=== PATIENT | female | born 1950 | race Caucasian/White ===

== ENCOUNTER 2020-04-22 20:18 | Inpatient (IN) ==
--- OUTSIDE RECORDS SUMMARY | 2020-04-22 20:21 | External Medical Summary | Continuity of Care Document ---
:1950 Author Name Guillermo Trujillo, Provider Address Unavailable Unavailable , Care Team Providers Name Role Phone Nate PEACE M.D., E. PMere Unavailable [email or web address] Unavailable Unavailable Assessments Assessed Problems:Ulnar neuropathy Problems Ulnar neuropathy (354.2) (G56.20) Allergies and Adverse Reactions Allergy history not documented Medications Medications not documented Procedures Procedures not documented Immunizations Immunizations not documented Plan of Treatment Planned Observations Planned Goals not documented Results No Known Results Results not documented Encounters Appointment; Raciel Sullivan III, M.D. 03-Feb-2015 15:45 Encounter Diagnosis: Problem not documented
[2020-04-22] MEDS ORDERED: DiphenhydrAMINE HCL 50 MG/ML VIAL IV STA (20:45)
[2020-04-22] MEDS ORDERED: ACETAMINOPHEN 1,000 MG/100 ML VIAL IV STA (20:45)
[2020-04-22] MEDS ORDERED: PIPERACILLIN/TAZOBACTAM 4.5 GM/120 ML BAG IV ONE (20:45)
[2020-04-22] MEDS ORDERED: PROCHLORPERAZINE 2 ML IV ONE (20:45)
[2020-04-22] MEDS ORDERED: SODIUM CHLORIDE 0.9% 1000ML 2,000 ML IV ONE (20:45)
[2020-04-22] MEDS ORDERED: FAMOTIDINE 20MG/5ML IV PUSH IV STA (20:45)
[2020-04-22] MEDS ORDERED: PIPERACILL/TAZOBAC CONSULT ACTIVE PRN (20:45)
[2020-04-22 21:13] LABS: Hematocrit (blood only) 47.5 % (37-47); Hemoglobin 16.9 g/dL (12.0-16.0); Mean Corpuscular Hemoglobin 32.4 pg (25-34); Mean Corpuscular Hgb Conc 35.6 g/dL (32-36); Mean Platelet Volume 11.1 fL (7.4-10.4); Platelet Count 359 K/uL (130-400); RDW Coefficient of Variation 13.3 % (11.5-14.5); RDW Standard Deviation 44.3 fL (36.4-46.3); Red Blood Count 5.22 M/uL (4.2-5.4); White Blood Count 9.73 K/uL (4.8-10.8)
[2020-04-22 21:23] LABS: iSTAT Creatinine 5.2 mg/dl (0.6-1.3); iSTAT Hemoglobin 17.7 g/dl (12.0-16.0); iSTAT Ionized Calcium 0.89 mmol/l (1.12-1.32); iSTAT Potassium 2.9 mmol/L (3.3-5.0)
[2020-04-22 21:25] LABS: Partial Thromboplastin Ratio 0.9; Prothrombin Time 10.5 Seconds (9.0-12.0)
[2020-04-22 21:29] LABS: Base Excess VBG 4.3 mEq/L; HCO3 VBG 31 mmol/L; Oxygen Saturation VBG < 60.0 %; PCO2 VBG 56 mmHg (38-50); PO2 VBG 33 mmHg; pH VBG 7.37 (7.36-7.41)
[2020-04-22 21:42] LABS: Basophils # (auto) 0.01 K/uL (0-0.2); Basophils % (auto) 0.1 %; Eosinophils # (auto) 0.01 K/uL (0-0.5); Eosinophils % (auto) 0.1 %; Immature Granulocytes # (auto) 0.04 K/uL (0.00-0.02); Immature Granulocytes % (auto) 0.4 %; Lymphocytes # (auto) 1.72 K/uL (1.2-3.4); Lymphocytes % (auto) 17.7 %; Monocytes # (auto) 1.35 K/uL (0.11-0.59); Monocytes % (auto) 13.9 %; Neutrophils % (auto) 67.8 %; Toxic Vacuolation 1+
[2020-04-22 21:51] LABS: Alanine Aminotransferase 24 U/L (12-78); Albumin Globulin Ratio 0.8 (0.9-2); Albumin Level 4.2 gm/dl (3.4-5.0); Alkaline Phosphatase 106 U/L (45-117); Aspartate Aminotransferase 33 U/L (15-37); BUN Creatinine Ratio 11.4 (10-20); Bilirubin Direct 0.1 mg/dl (0-0.2); Bilirubin,Total 0.4 mg/dl (0.2-1); Blood Urea Nitrogen 57 mg/dl (7-18); Calcium 9.7 mg/dl (8.5-10.1); Carbon Dioxide 28 mmol/L (21-32); Chloride 79 mmol/L (98-107); Est GFR (African American) 9.6; Est GFR (Non-African American) 8.2; Globulin 5.2 gm/dl (2.5-4.0); Glucose 141 mg/dl (70-99); Lipase 57 U/L (73-393); Magnesium 2.7 mg/dl (1.8-2.4); Potassium 2.9 mmol/L (3.5-5.1); Sodium 131 mmol/L (136-145); Total Protein 9.4 gm/dl (6.4-8.2); Troponin I < 0.015 ng/ml (0-0.045)
[2020-04-22] MEDS ORDERED: VANCOMYCIN HCL 750 MG in SODIUM CHLORIDE 0.9% 500 ML IV ONE (22:07)
[2020-04-22] MEDS ORDERED: VANCOMYCIN CONSULT ACTIVE PRN (22:07)
[2020-04-22] MEDS ORDERED: VANCOMYCIN HCL 750 MG in SODIUM CHLORIDE 0.9% 250 ML IV STA (22:14)
--- NOTE | 2020-04-22 22:26 | Emergency Department Note ---
Impression & Plan Sepsis, Acute renal failure, Elevated lactic acid level, SBO (small bowel obstruction) ED Provider Note NAME: AVE HAYWOOD AGE: 70 SEX: F ARRIVES VIA: Ambulance INFORMANT: Patient, ED PROVIDER(S): Raj Sanchez MD CHIEF COMPLAINT: Sepsis PLAN: Disposition: Admit MEDICAL DECISION MAKING: The patient is a pleasant 70-year-old woman with a past medical history of COPD, fibromyalgia, AAA, migraine headaches, hyperlipidemia, osteoporosis, lumbar disc disease and tobacco use who presents emergency department with fevers, body ache s, shortness of breath, nausea and vomiting that has been evolving since Saturday where they thought it was a "GI bug" but continued to get worse and so presented to the emergency department. The patient denies any known COVID-19 exposures and has been staying at home. She denies any cough, congestion, diarrhea, urinary symptoms. On arrival patient is ill-appearing, afebrile with heart rate in the 110s, O2 saturation upper 80s on room air, blood pressure 80s/50s but mentating normally. He appears clinically dry. Abdomen with generalized abdominal tenderness. Chest x-ray without any overt focal infiltrates per my preliminary review. WBC and platelets within normal limits. H/H 16.9/47.5 likely related to a component of hemoconcentration in the setting of the patient's sepsis and dehydration. Lactate is elevated at 6.5 however, with bicarb of 28 though with anion gap of 24. VBG does not show any acidemia the likely has a mixed acid- base status given her recurrent vomiting and sepsis. Creatinine is elevated at 4.9 with BUN of 57. Potassium is 2.9. Otherwise, magnesium and phosphorus are elevated at 2.7 and 9, respectively. Lipase is not elevated. Troponin negative/undetectable. Procalcitonin is elevated at 5.3 consistent with the patient's presumed sepsis. The patient was treated empirically with Zosyn and vancomycin. On reevaluation the patient was appearing improved and reported resolution of nausea and abdominal pain. Abdominal tenderness had subsequently resolved. HR improved to 90 and BP 110s/50s. I did review the results with the patient and her at the bedside. She was agreeable with plan for NG tube. I did discuss the case with general surgery on-call, Dr. Peralta who reviewed the patient's images. Given the patient is clinically improving with her resuscitation we agree that there is no indication for emergent surgery at this time. However if her repeat lactate is increasing or if the patient clinically declines then this will need to be reassessed. Given the patient is not acidemic and appears to be responding to treatment there is no indication for emergent dialysis at this time. Therefore no indication to transfer the patient for this reason at this time. Case was discussed with Dr. Scott, [facility] hospitalist, who will evaluate the patient for admission. Of note several attempts to place NG tube were unsuccessful by nursing. I then personally attempted myself but we were again unsuccessful with the tube being displaced and exiting through her mouth. Challenge and NG tube placement are related to week patient swallow during NG tube placement. Unfortunately she was refusing to allow additional attempts. I did stress the importance of having the NG tube in place and that we will need to revisit this later. Triage Nursing notes reviewed and agree them. [facility] reviewed Vital Signs: reviewed and remarkable for no significant abnormalities Differential diagnosis: Sepsis, UTI, pneumonia, metabolic, electrolyte abnormalities, cardiac sources, intracerebral event, toxicologic, neurologic, as well as other pathologies. ER treatment provided: See below. Diagnostics interpreted by me: ECG: Sinus tachycardia, 106 bpm, no ectopy, nonspecific ST and T wave abnormalities, no overt ST elevation, QTc 541, QRS 82. Cardiac Monitoring: An order for continuous cardiac monitoring was placed and demonstrated sinus tachycardia, 106 bpm, no ectopy. Laboratory studies: See below Imaging studies: CXR: No overt cardiopulmonary process per my review. [facility] Preliminary Findings Only See Final Report For Complete Findings CT ABDOMEN & PELVIS Without Contrast: Multiple loops of dilated small bowel with a transition point in the left lower abdomen (series 2 image 59) concerning for acute small bowel obstruction, likely from underlying mechanical cause such as adhesion. No free air or free fluid. Emphysema. Cholelithiasis without cholecystitis. No significant biliary dilatation. Bladder is decompressed by indwelling Saldana catheter. Diverticulosis without diverticulitis. Normal appendix. Moderate atherosclerosis of the aorta. Degenerative disc disease at L4-S1. Radiologist: Johnson Devine MD Study ready at 22:14 and initial results transmitted at 22:28 Consultation(s): Dr. Peralta, general surgery on-call. Case was discussed with Dr. Scott, [facility] hospitalist, who will evaluate the patient for admission. HPI: The patient is a pleasant 70-year-old woman with a past medical history of COPD, fibromyalgia, AAA, migraine headaches, hyperlipidemia, osteoporosis, lumbar disc disease and tobacco use who presents emergency department with fevers, body aches, shortness of breath, nausea and vomiting that has been evolving since Saturday where they thought it was a "GI bug" but continued to get worse and so presented to the emergency department. The patient denies any known COVID-19 exposures and has been staying at home. She denies any cough, congestion, diarrhea, urinary symptoms. On arrival patient is ill-appearing, afebrile with heart rate in the 110s, O2 saturation upper 80s on room air, blood pressure 80s/50s but mentating normally. He appears clinically dry. Abdomen with generalized abdominal tenderness. ROS: See above HPI for pertinent positives & negatives. A total of 10 systems reviewed and were otherwise negative. PAST MEDICAL HISTORY:See Below PAST SURGICAL HISTORY:See Below FAMILY HISTORY:See Below SOCIAL HISTORY:See Below HOME MEDICATIONS:See Below ALLERGIES:See Below VITALS:See Below PHYSICAL EXAMINATION: GENERAL: Awake, alert, ill-appearing, in no distress HENT: Normocephalic, atraumatic. Oropharynx with dry mucous membranes and otherwise unremarkable. EYES: Normal conjunctiva. Sclera non-icteric. NECK: Supple. No nuchal rigidity. FROM. No JVD. RESPIRATORY: Clear to auscultation. CARDIAC: Tachycardic rate, normal rhythm. Extremities warm and well perfused. Pulses equal. ABDOMEN: Soft, non-distended. Generalized abdominal tenderness to palpation. No rebound or guarding. No masses. RECTAL: Deferred. MUSCULOSKELETAL: Chest examination reveals no tenderness. The back is symmetrical on inspection without obvious abnormality. There is no CVA tenderness to palpation. No joint edema. LOWER EXTREMITIES: Calves are equal size bilaterally and non-tender. No edema. No discoloration. NEURO: Normal sensorium. No sensory or motor deficits noted. SKIN: No rash or jaundice noted. ED COURSE: Critical Care: I have personally spent greater than 95 minutes of critical care time in the direct management of this patient. This includes bedside care, interpretation of diagnostic studies, and testing, discussion with consultants, patient, and family members, and other required patient management activities. This 95 minutes is in excess of all separately billable procedures. 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 Required: No Beliefs That Will Affect Care: None Current Living Situation: Spouse Other Information That Helps Us Care for You: No Feels Safe at Home: Yes Safety Concerns: Feels Safe At This Time Allergies Allergies Allergy/AdvReac Type Severity Reaction Status Date / Time No Known Allergies Allergy Unverified 04/22/20 23:40 Home Meds Home Medications Medication Instructions Recorded Confirmed albuterol sulfate 1 puff INHALATION QID PRN 04/22/20 04/22/20 albuterol sulfate 2.5 mg INHALATION Q4 PRN 04/22/20 04/22/20 alendronate 70 mg PO WK 04/22/20 04/22/20 atorvastatin 10 mg PO DAILY 04/22/20 04/22/20 ajgjjtfbxb-lbvokdzupw-fcv-cod 1 cap PO Q4 PRN 04/22/20 04/22/20 calcium carbonate-vitamin D3 1 cap PO BID 04/22/20 04/22/20 [Calcium 600 + D(3)] carisoprodol 350 mg PO TID PRN 04/22/20 04/22/20 cholecalciferol (vitamin D3) 25 mcg PO DAILY 04/22/20 04/22/20 [Vitamin D3] hydrocodone-acetaminophen 1 tab PO TID PRN 04/22/20 04/22/20 mv,with Ru-lagl-TX-lut-[id number] 1 tab PO DAILY 04/22/20 04/22/20 [[facility]] omeprazole 40 mg PO QAM 04/22/20 04/22/20 zolpidem 10 mg PO HS 04/22/20 04/22/20 Results & Data (ED) Vital Signs Vital Signs - 24 hr 04/22/20 20:25 04/22/20 20:27 04/22/20 20:33 Temperature 36.9 C Temperature Source Oral Pulse Rate 113 H 113 H 115 H Pulse Rate [Apical] Pulse Rate from SpO2 Sensor 112 H 112 H Respiratory Rate 14 15 22 Respiratory Effort / Characteristics Respiratory Depth Blood Pressure 87/61 L 87/61 L Blood Pressure [Right Arm] Blood Pressure Mean 64 69 Blood Pressure Mean [Right Arm] Blood Pressure Position Lying Pulse Oximetry 88 L 89 L 93 Oxygen Delivery Method Room Air Oxygen Flow Rate Sepsis Recent Fever Within 48 Hours No Sepsis New/Unexplained Change in Mental Status N/A Sepsis Action Taken by Nursing Physician Notified 04/22/20 20:35 04/22/20 20:43 04/22/20 20:44 Temperature Temperature Source Pulse Rate 115 H Pulse Rate [Apical] Pulse Rate from SpO2 Sensor 115 H Respiratory Rate Respiratory Effort / Characteristics Respiratory Depth Blood Pressure 86/56 L Blood Pressure [Right Arm] Blood Pressure Mean 75 Blood Pressure Mean [Right Arm] Blood Pressure Position Pulse Oximetry 87 L 95 96 Oxygen Delivery Method Room Air Nasal Cannula Oxygen Flow Rate 2 Sepsis Recent Fever Within 48 Hours Sepsis New/Unexplained Change in Mental Status Sepsis Action Taken by Nursing 04/22/20 20:45 04/22/20 20:46 04/22/20 20:53 Temperature Temperature Source Pulse Rate 114 H 115 H 110 H Pulse Rate [Apical] Pulse Rate from SpO2 Sensor 116 H 114 H Respiratory Rate Respiratory Effort / Characteristics Respiratory Depth Blood Pressure 62/53 L 105/89 73/57 L Blood Pressure [Right Arm] Blood Pressure Mean 56 94 62 Blood Pressure Mean [Right Arm] Blood Pressure Position Pulse Oximetry 93 95 Oxygen Delivery Method Oxygen Flow Rate Sepsis Recent Fever Within 48 Hours Sepsis New/Unexplained Change in Mental Status Sepsis Action Taken by Nursing 04/22/20 21:00 04/22/20 21:01 04/22/20 21:03 Temperature Temperature Source Pulse Rate 109 H 107 H Pulse Rate [Apical] Pulse Rate from SpO2 Sensor 110 H 103 H Respiratory Rate Respiratory Effort / Characteristics Respiratory Depth Blood Pressure 104/76 Blood Pressure [Right Arm] Blood Pressure Mean 87 Blood Pressure Mean [Right Arm] Blood Pressure Position Pulse Oximetry 92 93 98 Oxygen Delivery Method Nasal Cannula Oxygen Flow Rate 2 Sepsis Recent Fever Within 48 Hours Sepsis New/Unexplained Change in Mental Status Sepsis Action Taken by Nursing 04/22/20 21:30 04/22/20 21:47 04/22/20 22:00 Temperature Temperature Source Pulse Rate 88 96 H Pulse Rate [Apical] Pulse Rate from SpO2 Sensor 91 H 95 H Respiratory Rate 18 18 Respiratory Effort / Characteristics Non-Labored Non-Labored Respiratory Depth Blood Pressure 135/84 98/79 L Blood Pressure [Right Arm] Blood Pressure Mean 99 84 Blood Pressure Mean [Right Arm] Blood Pressure Position Pulse Oximetry 98 99 99 Oxygen Delivery Method Room Air Nasal Cannula Oxygen Flow Rate 2 2 Sepsis Recent Fever Within 48 Hours Sepsis New/Unexplained Change in Mental Status Sepsis Action Taken by Nursing 04/22/20 22:15 04/22/20 22:30 04/22/20 22:45 Temperature Temperature Source Pulse Rate 91 H 86 89 Pulse Rate [Apical] Pulse Rate from SpO2 Sensor 91 H 86 89 Respiratory Rate 16 18 18 Respiratory Effort / Characteristics Non-Labored Respiratory Depth Blood Pressure 122/80 118/61 106/67 Blood Pressure [Right Arm] Blood Pressure Mean 84 96 73 Blood Pressure Mean [Right Arm] Blood Pressure Position Pulse Oximetry 98 100 100 Oxygen Delivery Method Nasal Cannula Oxygen Flow Rate 2 Sepsis Recent Fever Within 48 Hours Sepsis New/Unexplained Change in Mental Status Sepsis Action Taken by Nursing 04/22/20 23:00 04/23/20 00:00 Temperature Temperature Source Pulse Rate 90 Pulse Rate [Apical] 88 Pulse Rate from SpO2 Sensor 90 Respiratory Rate 18 18 Respiratory Effort / Characteristics Non-Labored Non-Labored Respiratory Depth Normal Blood Pressure 118/59 L Blood Pressure [Right Arm] 113/77 Blood Pressure Mean 99 Blood Pressure Mean [Right Arm] 89 Blood Pressure Position Pulse Oximetry 99 98 Oxygen Delivery Method Nasal Cannula Nasal Cannula Oxygen Flow Rate 2 2 Sepsis Recent Fever Within 48 Hours Sepsis New/Unexplained Change in Mental Status Sepsis Action Taken by Nursing Laboratory Data Attestation: I reviewed the patient's lab results. Result diagrams: 04/22/20 21:03 04/22/20 21:03 Lab Results 04/22/20 04/22/20 04/22/20 Range/Units 21:03 21:03 21:03 WBC 9.73 (4.8-10.8) K/uL RBC 5.22 (4.2-5.4) M/uL Hgb 16.9 H (12.0-16.0) g/dL POC Hgb (12.0-16.0) g/dl Hct 47.5 H (37-47) % POC Hct (37-47) % MCV 91.0 (80-100) fL MCH 32.4 (25-34) pg MCHC 35.6 (32-36) g/dL RDW Std Deviation 44.3 (36.4-46.3) fL RDW Coeff of Nakul 13.3 (11.5-14.5) % Plt Count 359 (130-400) K/uL MPV 11.1 H (7.4-10.4) fL Immature Gran % (Auto) 0.4 % Neut % (Auto) 67.8 % Lymph % (Auto) 17.7 % [place] % (Auto) 13.9 % Eos % (Auto) 0.1 % Baso % (Auto) 0.1 % Neut # (Auto) 6.60 H (1.4-6.5) K/uL Lymph # (Auto) 1.72 (1.2-3.4) K/uL [place] # (Auto) 1.35 H (0.11-0.59) K/uL Eos # (Auto) 0.01 (0-0.5) K/uL Baso # (Auto) 0.01 (0-0.2) K/uL Immature Gran # (Auto) 0.04 H (0.00-0.02) K/uL Toxic Vacuolation 1+ PT 10.5 (9.0-12.0) Seconds INR 1.0 (0.9-1.1) APTT 26.0 (21.0-31.0) Seconds PTT Ratio 0.9 VBG pH (7.36-7.41) VBG pCO2 (38-50) mmHg VBG pO2 mmHg VBG HCO3 mmol/L VBG O2 Saturation % VBG Base Excess mEq/L Barometric Pressure mm/Hg POC Sodium (135-144) mmol/L Sodium 131 L (136-145) mmol/L POC Potassium (3.3-5.0) mmol/L Potassium 2.9 L (3.5-5.1) mmol/L POC Chloride (101-112) mmol/L Chloride 79 L (98-107) mmol/L Carbon Dioxide 28 (21-32) mmol/L POC Total CO2 (24-31) mmol/L Anion Gap 24.0 H (3-11) POC Anion Gap (16-25) mmol/L POC BUN (7-18) mg/dl BUN 57 H (7-18) mg/dl Creatinine 4.95 H* (0.6-1.2) mg/dl POC Creatinine (0.6-1.3) mg/dl Est Cr Clr Drug Dosing 7.0 ml/min Est GFR ( Amer) 9.6 Est GFR (Non-Af Amer) 8.2 BUN/Creatinine Ratio 11.4 (10-20) Glucose 141 H (70-99) mg/dl POC Glucose (other) (70-99) mg/dl Lactate (0.4-2.0) mmol/L Calcium 9.7 (8.5-10.1) mg/dl POC Ioniz Calcium Marc (1.12-1.32) mmol/l Phosphorus 9.0 H (2.5-4.9) mg/dl Magnesium 2.7 H (1.8-2.4) mg/dl Total Bilirubin 0.4 (0.2-1) mg/dl Direct Bilirubin 0.1 (0-0.2) mg/dl AST 33 (15-37) U/L ALT 24 (12-78) U/L Alkaline Phosphatase 106 (45-117) U/L Troponin I < 0.015 (0-0.045) ng/ml Total Protein 9.4 H (6.4-8.2) gm/dl Albumin 4.2 (3.4-5.0) gm/dl Globulin 5.2 H (2.5-4.0) gm/dl Albumin/Globulin Ratio 0.8 L (0.9-2) Lipase 57 L (73-393) U/L Procalcitonin (0-0.5) ng/ml 04/22/20 04/22/20 04/22/20 Range/Units 21:03 21:10 21:16 WBC (4.8-10.8) K/uL RBC (4.2-5.4) M/uL Hgb (12.0-16.0) g/dL POC Hgb 17.7 H (12.0-16.0) g/dl Hct (37-47) % POC Hct 52 H (37-47) % MCV (80-100) fL MCH (25-34) pg MCHC (32-36) g/dL RDW Std Deviation (36.4-46.3) fL RDW Coeff of Nakul (11.5-14.5) % Plt Count (130-400) K/uL MPV (7.4-10.4) fL Immature Gran % (Auto) % Neut % (Auto) % Lymph % (Auto) % [place] % (Auto) % Eos % (Auto) % Baso % (Auto) % Neut # (Auto) (1.4-6.5) K/uL Lymph # (Auto) (1.2-3.4) K/uL [place] # (Auto) (0.11-0.59) K/uL Eos # (Auto) (0-0.5) K/uL Baso # (Auto) (0-0.2) K/uL Immature Gran # (Auto) (0.00-0.02) K/uL Toxic Vacuolation PT (9.0-12.0) Seconds INR (0.9-1.1) APTT (21.0-31.0) Seconds PTT Ratio VBG pH (7.36-7.41) VBG pCO2 (38-50) mmHg VBG pO2 mmHg VBG HCO3 mmol/L VBG O2 Saturation % VBG Base Excess mEq/L Barometric Pressure mm/Hg POC Sodium 131 L (135-144) mmol/L Sodium (136-145) mmol/L POC Potassium 2.9 L (3.3-5.0) mmol/L Potassium (3.5-5.1) mmol/L POC Chloride 83 L (101-112) mmol/L Chloride (98-107) mmol/L Carbon Dioxide (21-32) mmol/L POC Total CO2 32 H (24-31) mmol/L Anion Gap (3-11) POC Anion Gap 20.0 (16-25) mmol/L POC BUN 54 H (7-18) mg/dl BUN (7-18) mg/dl Creatinine (0.6-1.2) mg/dl POC Creatinine 5.2 H* (0.6-1.3) mg/dl Est Cr Clr Drug Dosing ml/min Est GFR ( Amer) Est GFR (Non-Af Amer) BUN/Creatinine Ratio (10-20) Glucose (70-99) mg/dl POC Glucose (other) 143 H (70-99) mg/dl Lactate 6.5 H* (0.4-2.0) mmol/L Calcium (8.5-10.1) mg/dl POC Ioniz Calcium Marc 0.89 L (1.12-1.32) mmol/l Phosphorus (2.5-4.9) mg/dl Magnesium (1.8-2.4) mg/dl Total Bilirubin (0.2-1) mg/dl Direct Bilirubin (0-0.2) mg/dl AST (15-37) U/L ALT (12-78) U/L Alkaline Phosphatase (45-117) U/L Troponin I (0-0.045) ng/ml Total Protein (6.4-8.2) gm/dl Albumin (3.4-5.0) gm/dl Globulin (2.5-4.0) gm/dl Albumin/Globulin Ratio (0.9-2) Lipase (73-393) U/L Procalcitonin 5.33 H (0-0.5) ng/ml 04/22/20 04/22/20 Range/Units 21:16 23:27 WBC (4.8-10.8) K/uL RBC (4.2-5.4) M/uL Hgb (12.0-16.0) g/dL POC Hgb (12.0-16.0) g/dl Hct (37-47) % POC Hct (37-47) % MCV (80-100) fL MCH (25-34) pg MCHC (32-36) g/dL RDW Std Deviation (36.4-46.3) fL RDW Coeff of Nakul (11.5-14.5) % Plt Count (130-400) K/uL MPV (7.4-10.4) fL Immature Gran % (Auto) % Neut % (Auto) % Lymph % (Auto) % [place] % (Auto) % Eos % (Auto) % Baso % (Auto) % Neut # (Auto) (1.4-6.5) K/uL Lymph # (Auto) (1.2-3.4) K/uL [place] # (Auto) (0.11-0.59) K/uL Eos # (Auto) (0-0.5) K/uL Baso # (Auto) (0-0.2) K/uL Immature Gran # (Auto) (0.00-0.02) K/uL Toxic Vacuolation PT (9.0-12.0) Seconds INR (0.9-1.1) APTT (21.0-31.0) Seconds PTT Ratio VBG pH 7.37 (7.36-7.41) VBG pCO2 56 H (38-50) mmHg VBG pO2 33 mmHg VBG HCO3 31 mmol/L VBG O2 Saturation < 60.0 % VBG Base Excess 4.3 mEq/L Barometric Pressure 730.3 mm/Hg POC Sodium (135-144) mmol/L Sodium (136-145) mmol/L POC Potassium (3.3-5.0) mmol/L Potassium (3.5-5.1) mmol/L POC Chloride (101-112) mmol/L Chloride (98-107) mmol/L Carbon Dioxide (21-32) mmol/L POC Total CO2 (24-31) mmol/L Anion Gap (3-11) POC Anion Gap (16-25) mmol/L POC BUN (7-18) mg/dl BUN (7-18) mg/dl Creatinine (0.6-1.2) mg/dl POC Creatinine (0.6-1.3) mg/dl Est Cr Clr Drug Dosing ml/min Est GFR ( Amer) Est GFR (Non-Af Amer) BUN/Creatinine Ratio (10-20) Glucose (70-99) mg/dl POC Glucose (other) (70-99) mg/dl Lactate 3.8 H* (0.4-2.0) mmol/L Calcium (8.5-10.1) mg/dl POC Ioniz Calcium Marc (1.12-1.32) mmol/l Phosphorus (2.5-4.9) mg/dl Magnesium (1.8-2.4) mg/dl Total Bilirubin (0.2-1) mg/dl Direct Bilirubin (0-0.2) mg/dl AST (15-37) U/L ALT (12-78) U/L Alkaline Phosphatase (45-117) U/L Troponin I (0-0.045) ng/ml Total Protein (6.4-8.2) gm/dl Albumin (3.4-5.0) gm/dl Globulin (2.5-4.0) gm/dl Albumin/Globulin Ratio (0.9-2) Lipase (73-393) U/L Procalcitonin (0-0.5) ng/ml Administered Medications Discontinued Medications Diphenhydramine HCl (Diphenhydramine Hcl 50 Mg/Ml Vial) 25 mg IV NOW STA Stop: 04/22/20 20:46 Last Admin: 04/22/20 20:57 Dose: 25 mg Documented by: [id number] Famotidine (Famotidine 20mg/5ml Iv Push) 20 mg IV ONE STA Stop: 04/22/20 20:46 Last Admin: 04/22/20 20:55 Dose: 20 mg Documented by: [id number] Sodium Chloride (Nss 1000ml) 2,000 mls @ 999 mls/hr IV .Q2H1M ONE Stop: 04/22/20 22:45 Last Infusion: 04/22/20 22:58 Dose: 0 mls/hr Documented by: [id number] Admin: 04/22/20 20:54 Dose: 999 mls/hr Documented by: [id number] Acetaminophen (Ofirmev) 1,000 mg in 100 mls @ 400 mls/hr IV NOW STA Stop: 04/22/20 20:59 Last Infusion: 04/22/20 21:09 Dose: 0 mls/hr Documented by: [id number] Admin: 04/22/20 20:58 Dose: 400 mls/hr Documented by: [id number] Prochlorperazine (Compazine) 2 mls @ 1 mls/min IV ONE ONE Stop: 04/22/20 20:46 Last Admin: 04/22/20 20:56 Dose: 1 mls/min Documented by: [id number] Piperacillin Sod/Tazobactam Sod (Zosyn) 4.5 gm in 120 mls @ 240 mls/hr IV NOW ONE Stop: 04/22/20 21:14 Last Infusion: 04/22/20 22:58 Dose: 0 mls/hr Documented by: [id number] Admin: 04/22/20 22:15 Dose: 240 mls/hr Documented by: [id number] Potassium Chloride ([place] / Wtr) 10 meq in 100 mls @ 100 mls/hr IV Q1H MONIQUE Stop: 04/23/20 00:14 Last Infusion: 04/23/20 01:19 Dose: 0 mls/hr Documented by: [id number] Admin: 04/23/20 00:42 Dose: 100 mls/hr Documented by: [id number] Infusion: 04/22/20 23:59 Dose: 100 mls/hr Documented by: [id number] Admin: 04/22/20 22:59 Dose: 100 mls/hr Documented by: [id number] Vancomycin HCl 750 mg/ Sodium (Chloride) 515 mls @ 200 mls/hr IV NOW ONE Stop: 04/23/20 00:41 Last Admin: 04/23/20 01:31 Dose: Not Given Documented by: [id number] Vancomycin HCl 750 mg/ Sodium (Chloride) 265 mls @ 125 mls/hr IV NOW STA Stop: 04/23/20 00:21 Last Infusion: 04/23/20 01:19 Dose: 0 mls/hr Documented by: [id number] Admin: 04/22/20 22:58 Dose: 125 mls/hr Documented by: [id number] Lactated Ringer's (Lr) 1,000 mls @ 999 mls/hr IV .Q1H1M ONE Stop: 04/22/20 23:53 Last Infusion: 04/23/20 01:19 Dose: 0 mls/hr Documented by: [id number] Admin: 04/23/20 00:20 Dose: 999 mls/hr Documented by: [id number] Prochlorperazine 5 mg/ Syringe 5 mls @ 5 mls/min IV ONE ONE Stop: 04/23/20 00:39 Last Admin: 04/23/20 01:20 Dose: 5 mls/min Documented by: [id number] Lidocaine HCl (Lidocaine 2% Jelly 5 Ml Tube) Confirm Administered Dose 5 ml .ROUTE .STK-MED ONE Stop: 04/23/20 00:23 Last Admin: 04/23/20 00:42 Dose: 5 ml Documented by: [id number] Blood Pressure Blood Pressure Findings: Low blood pressure Blood Pressure Disposition: further management by hospitalist Discharge Plan Visit Data Chief Complaint: Illness Stated Complaint: possible sepsis ED Provider: Rja Sanchez Discharge Problem: Sepsis, Acute renal failure, Elevated lactic acid level, SBO (small bowel obstruction) Patient Disposition: Admitted As Inpatient Discharge Instructions Interventions: ED Discharge Assessment Last Done: 04/23/20 01:31 Discharge Problem: Sepsis Qualifiers: Sepsis type: sepsis due to unspecified organism Sepsis acute organ dysfunction status: with acute organ dysfunction Severe sepsis acute organ dysfunction type: acute renal failure Acute renal failure type: unspecified Severe sepsis shock status: without septic shock Qualified Code(s): A41.9 - Sepsis, unspecified organism
[2020-04-22] MEDS ORDERED: LACTATED RINGER'S 1,000 ML IV ONE (22:53)
[2020-04-22] MEDS: POTASSIUM CHLORIDE / WTR 10 MEQ/100 ML PLCT IV SCH (22:59)
[2020-04-23] MEDS ORDERED: LIDOCAINE 2% JELLY 5 ML TUBE ONE ×2 (00:22→08:33)
[2020-04-23] MEDS ORDERED: PROCHLORPERAZINE 5 MG in SYRINGE 4 ML IV ONE (00:38)
[2020-04-23] MEDS: POTASSIUM CHLORIDE / WTR 10 MEQ/100 ML PLCT IV SCH ×4 (00:42→06:22)
[2020-04-23 02:50] LABS: Appearance Urine Turbid (Clear); Bacteria Urine Automated Negative (Negative); Bilirubin Urine Negative (Negative); Blood Urine 3+ (Negative); Color Urine Yellow; Epithelial Cell Urine Auto >30 /lpf (0-5); Glucose Urine UA Negative (Negative); Ketones Urine Trace (Negative); Leukocyte Esterase Urine Negative (Negative); Nitrite Urine Negative (Negative); Protein Urine 2+ (Negative); Specific Gravity Urine 1.024 (1.000-1.030); Urobilinogen Urine Negative (Negative)
--- NOTE | 2020-04-23 02:53 | History and Physical Report ---
DATE OF ADMISSION: 04/23/2020 CHIEF COMPLAINT: Abdominal pain, nausea and vomiting. HISTORY OF PRESENT ILLNESS: This is a 70-year-old female with past medical history significant for hyperlipidemia, COPD, congenital deviation of nasal septum, abdominal aortic aneurysm, GERD, osteoporosis, fibromyalgia, polyarticular osteoarthritis, migraine variant, parotid mass, who lives with her . Ambulates okay, comes because of nausea and vomiting, going on for last 3 days. She says she vomited several times. Did not eat anything for the last 3 days except for liquids.Thought it could be a GI bug, but it got worse and came to the ER today and she was tachycardic and blood pressure was in 80s when she came in and generalized abdominal tenderness and her labs showed sodium of 131, potassium 2.9 with creatinine of 4.95. Lactate of 6.5. Procalcitonin of 5.33 and CAT scan of the abdomen and pelvis shows small-bowel obstruction. Received fluids and IV antibiotics. Repeat lactic acid, it was 3.8. Surgery was notified and planned to take over if the lactic acid continues to increase, but it has been decreased to 3.8. Plan for NG tube. Currently, the patient is hemodynamically stable. Blood pressure improved to 110s. The patient is afebrile, has cough he says for long time. Denies any loss of sense of smell or taste. No headache, no blurred vision, no earache, no runny nose. She has some sore throat, from attempt to place NG tube. Denies any chest pain, no shortness of breath. She says she has small bowel movement yesterday, was micturating okay at home. Was ambulating okay. No rash seen. ALLERGIES: No known drug allergies. PAST MEDICAL HISTORY: As mentioned above. PAST SURGICAL HISTORY: Dental surgery, exploration of abdomen, ligation of oviducts, reduction of the facial bones, tonsillectomy, adenoidectomy. MEDICATIONS: The patient is on albuterol 2.5 mg solution q. 4 hours p.r.n., albuterol 1 puff q.i.d. p.r.n., alendronate 70 mg p.o. weekly, atorvastatin 10 mg p.o. daily, butalbital acetaminophen caffeine 1 capsule p.o. q. 4 hours p.r.n., calcium carbonate plus vitamin D 1 capsule p.o. b.i.d., Carisoprodol 350 mg p.o. t.i.d. p.r.n., vitamin D 25 mcg p.o. daily, hydrocodone/acetaminophen 5/325 mg one tablet p.o. t.i.d. p.r.n., multivitamins with minerals 1 tablet daily, omeprazole 40 mg p.o. daily, Ambien 10 mg p.o. at bedtime. FAMILY HISTORY: Significant for father had glaucoma. SOCIAL HISTORY: and lives with her , smoked half pack a day for 30 years. No alcohol use, no drug use. REVIEW OF SYMPTOMS: As per HPI. Rest of the review of symptoms are negative. PHYSICAL EXAMINATION: GENERAL: The patient is weak and frail, not in acute distress. VITAL SIGNS: Temperature 36.9, pulse 90, respiratory rate 18, blood pressure 118/59 and oxygen 99% on 2 liters. HEENT: Pupils equal, round, reactive to light. NECK: No JVD, supple. CARDIOVASCULAR: S1, S2 heard, regular rate and rhythm, no murmur, no gallop. RESPIRATORY SYSTEM: Normal AP diameter. No accessory muscle use. No wheezing, no crackles. ABDOMEN: Soft, absent bowel sounds. Diffuse tenderness. No guarding. Mild rigidity. No distention seen. CENTRAL NERVOUS SYSTEM: Cranial nerves II-XII grossly intact, nonfocal. EXTREMITIES: No edema, no erythema. LABORATORY DATA: WBC 9.7, hemoglobin 16.9, hematocrit 47.5, platelets 359. PT 10.5, INR 1, APTT 26. Venous blood gas pH of 7.3, pCO2 of 56, pO2 of 33, bicarbonate 31. Sodium 131, potassium 2.9, chloride 79, CO2 28, BUN 57, creatinine 4.95, serum glucose 141. Lactate of 6.5, repeated 3.8, phosphorus 9, ionized calcium 0.89, magnesium 2.7, total bilirubin 0.4, direct bilirubin 0.1, AST 33, ALT 24, alkaline phosphatase 106. Troponin I less than 0.015. Lipase 57. Procalcitonin 5.33. CT abdomen and pelvis preliminary report, small-bowel obstruction. Chest x-ray, no acute findings seen. EKG: Sinus tachycardia at a rate of 106, nonspecific ST changes seen, prolonged QTC of 541. ASSESSMENT AND PLAN: This is a 70-year-old female who presents with nausea, vomiting and found to have small-bowel obstruction, acute kidney injury and elevated lactic acid. 1. Nausea, vomiting and small-bowel obstruction: Plan for NG tube. Surgery notified, elevated lactic acid 6.5, repeat lactic acid with fluid resuscitation and antibiotic is 3.8, will continue to trend with lactic acid, was started on IV Zosyn and vancomycin, which we will continue. Follow the cultures. Closely monitor on tele floor. 2. Hypokalemia and hyponatremia. Sodium 131, potassium 2.9: We will replace and follow repeat labs. 3. Acute kidney injury with a creatinine of 4.9, baseline creatinine 0.9, possibly secondary to dehydration from nausea and vomiting. Getting fluids. We will follow the labs in a.m. Consult nephrology in a.m. Follow the electrolytes. 4. Elevated lactic acid: Lactic acid was 6.5, mostly from dehydration. The patient was hypotensive when she came in, possibly sepsis from GI source. Empirically started on vancomycin and Zosyn, which we will continue. Follow the cultures. Follow the repeat lactic acids. 5. Hyperlipidemia: Hold statin. 6. Chronic obstructive pulmonary disease: Home nebs and inhalers. 7. Abdominal aortic aneurysm: As CAT scan in 2018 showed 3.2 x 2.3 cm. Follow up with primary care physician. 8. History of migraine: Currently stable. 9. History of parotid mass: Follows with ENT. Seems to be benign. 10. Deep venous thrombosis prophylaxis: Sequential compression devices for now. 11. Disposition: Closely monitor in tele floor. Level 1 full code. Expect discharge home and follow with family doctor. MTDD
[2020-04-23] MEDS ORDERED: PIPERACILL/TAZOBAC CONSULT ACTIVE PRN (03:11)
[2020-04-23] MEDS ORDERED: ALBUTEROL 0.083% NEBU SOLN 3 ML VIAL INH PRN (03:11)
[2020-04-23] MEDS ORDERED: VANCOMYCIN CONSULT ACTIVE PRN (03:11)
[2020-04-23] MEDS ORDERED: VANCOMYCIN HCL 1,000 MG in SODIUM CHLORIDE 0.9% 250 ML IV SCH (03:11)
[2020-04-23] MEDS ORDERED: NITROGLYCERIN SL 0.4 MG/TAB TAB SL PRN (03:11)
[2020-04-23] MEDS ORDERED: ALBUTEROL HFA 8 GM INHALER INH PRN (03:11)
[2020-04-23] MEDS ORDERED: PROMETHAZINE HCL 12.5 MG in SODIUM CHLORIDE 0.9% 50 ML IV PRN (03:11)
[2020-04-23] MEDS: NSS + 20MEQ KCL 20 MEQ/1,000 ML BAG IV SCH ×2 (03:44→11:45)
[2020-04-23 05:30] LABS: Basophils # (auto) 0.01 K/uL (0-0.2); Basophils % (auto) 0.2 %; Hematocrit (blood only) 39.2 % (37-47); Hemoglobin 13.6 g/dL (12.0-16.0); Immature Granulocytes # (auto) 0.02 K/uL (0.00-0.02); Immature Granulocytes % (auto) 0.4 %; Lymphocytes # (auto) 0.51 K/uL (1.2-3.4); Lymphocytes % (auto) 10.7 %; Mean Corpuscular Hemoglobin 31.8 pg (25-34); Mean Corpuscular Hgb Conc 34.7 g/dL (32-36); Mean Corpuscular Volume 91.6 fL (80-100); Mean Platelet Volume 11.1 fL (7.4-10.4); Monocytes # (auto) 0.98 K/uL (0.11-0.59); Monocytes % (auto) 20.6 %; Neutrophils # (auto) 3.23 K/uL (1.4-6.5); Neutrophils % (auto) 68.1 %; Platelet Count 230 K/uL (130-400); RDW Coefficient of Variation 13.4 % (11.5-14.5); RDW Standard Deviation 44.4 fL (36.4-46.3); Red Blood Count 4.28 M/uL (4.2-5.4); White Blood Count 4.75 K/uL (4.8-10.8)
[2020-04-23 05:35] LABS: BUN Creatinine Ratio 15.1 (10-20); Calcium 7.9 mg/dl (8.5-10.1); Creatinine Clr Calc Pharmacy 9.8 ml/min; Est GFR (African American) 13.4; Est GFR (Non-African American) 11.5
[2020-04-23] MEDS ORDERED: PIPERACILLIN/TAZOBACTAM 3.375 GM in DEXTROSE 5% 100 ML IV SCH (06:00)
--- NOTE | 2020-04-23 08:20 | Surgery Consultation ---
Date of Consultation April 23, 2020 Assessment & Plan (1) SBO (small bowel obstruction): -continue conservative measures with NPO status, NGT to LCS, and IVF for hydration Supervising Physician Co-Signing Physician Notes Patient seen and examined, labs and imaging reviewed, agree with above. 70-year-old female with nausea, vomiting, and abdominal pain since Saturday. She has not been passing gas or stool since Saturday. She presented to the emergency department was found to be in acute renal failure and had a CT scan which showed moderate grade small bowel obstruction with transition point in the left lower quadrant. Attempted to place NG tube multiple times overnight but were unsuccessful. Upon entering the room she was vomiting. Otherwise she is afebrile with stable vitals. Her abdomen is distended but soft, and nontender. Labs show a hypochloremic hypokalemic metabolic acidosis with an increased lactate that is now resolving. Also show acute renal failure. CT reviewed and interpreted by myself, agree with moderate grade partial small bowel obstruction. We were able to successfully place an NG tube at the bedside. NG tube to low intermittent wall suction continue to replace electrolytes and keep hydrated, her labs show evidence of acute renal failure secondary to vomiting. Continue with nonoperative management which was discussed with the patient surgery will continue to follow, call with questions or concerns do not feel there is any need for antibiotics at this time History of Present Illness Attending Physician: Jennifer Bain MD History of Present Illness 70 year old female presented to ED due to several days of what she though was a GI bug. Due to persistent N/V she presented to ED where CT scan showed concern for SBO. In the ED, multiple attempts at placing an NGT were made without success. Since admission she continues to have N/V. Allergies Allergy/AdvReac Type Severity Reaction Status Date / Time No Known Allergies Allergy Unverified 04/22/20 23:40 Home Medications Home Medications Medication Instructions Recorded Confirmed Type albuterol sulfate 1 puff INHALATION QID PRN 04/22/20 04/22/20 History albuterol sulfate 2.5 mg INHALATION Q4 PRN 04/22/20 04/22/20 History alendronate 70 mg PO WK 04/22/20 04/22/20 History atorvastatin 10 mg PO DAILY 04/22/20 04/22/20 History mqkvzoxyhj-igedekfnpq-jla-cod 1 cap PO Q4 PRN 04/22/20 04/22/20 History calcium carbonate-vitamin D3 1 cap PO BID 04/22/20 04/22/20 History [Calcium 600 + D(3)] carisoprodol 350 mg PO TID PRN 04/22/20 04/22/20 History cholecalciferol (vitamin D3) 25 mcg PO DAILY 04/22/20 04/22/20 History [Vitamin D3] hydrocodone-acetaminophen 1 tab PO TID PRN 04/22/20 04/22/20 History mv,with Vz-nmck-IY-lut-179herb 1 tab PO DAILY 04/22/20 04/22/20 History [[facility]] omeprazole 40 mg PO QAM 04/22/20 04/22/20 History zolpidem 10 mg PO HS 04/22/20 04/22/20 History Patient History Medical History COPD (chronic obstructive pulmonary disease) Fibromyalgia Hyperlipidemia Lumbar disc disease Migraine Osteoporosis Tobacco use Social History Smoking Status: Current every day smoker Tobacco Type: Cigarettes Second Hand Exposure: Yes; Do You Dip or Chew Tobacco: No; Tobacco Cessation Education Requested by Patient: No Hx Alcohol Use: No Hx Substance Use: No Preferred Language: Haitian 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 Ability: Effective Fancy Sewer Required: No Beliefs That Will Affect Care: None marital status: Current Living Situation: Spouse Other Information That Helps Us Care for You: No Feels Safe at Home: Yes Safety Concerns: Feels Safe At This Time Review of Systems Constitutional: no fever and no chills Eyes: no diplopia Ear, Nose, Mouth, Throat: no ear pain Respiratory: no cough and no dyspnea Cardiovascular: no chest pain Gastrointestinal: + nausea and + vomiting Genitourinary: no dysuria Musculoskeletal: no back pain Integumentary: no rash Physical Exam Constitutional: + thin; no acute distress Eyes: no conjunctival abnormality ENMT: Ears: no hearing impairment Neck: trachea midline Respiratory: normal respiratory effort; no respiratory distress and no labored breathing Cardiovascular: Rate/Rhythm: regular rate and regular rhythm Gastrointestinal (Abdomen): Percussion/Palpation: abdomen soft; abdomen nontender non-distended; minimal pain with palpation Musculoskeletal: no calf pain Skin: no rashes, warm and dry Neurologic: moves all extremities Results & Data ([facility]) Vital Signs (Past 12 Hours) Vital Signs Temp Pulse Pulse Resp BP BP Pulse Ox 04/23/20 08:01 37.5 C 04/23/20 03:11 37.4 C 91 H 21 101/53 L 97 04/23/20 01:36 37.4 C 91 H 24 121/49 L 95 04/23/20 01:35 37.4 C 91 H 24 121/49 L 95 04/23/20 01:31 90 18 106/60 98 04/23/20 01:15 92 H 106/60 95 04/23/20 00:00 88 18 113/77 98 04/22/20 23:00 90 18 118/59 L 99 04/22/20 22:45 89 18 106/67 100 04/22/20 22:30 86 18 118/61 100 04/22/20 22:15 91 H 16 122/80 98 04/22/20 22:00 18 99 04/22/20 21:47 96 H 98/79 L 99 04/22/20 21:30 88 18 135/84 98 04/22/20 21:03 98 04/22/20 21:01 107 H 93 04/22/20 21:00 109 H 104/76 92 04/22/20 20:53 110 H 73/57 L 04/22/20 20:46 115 H 105/89 95 04/22/20 20:45 114 H 62/53 L 93 04/22/20 20:44 96 04/22/20 20:43 115 H 86/56 L 95 04/22/20 20:35 87 L 04/22/20 20:33 36.9 C 115 H 22 87/61 L 93 04/22/20 20:27 113 H 15 89 L 04/22/20 20:25 113 H 14 87/61 L 88 L PG Care Time/CCT Total # of Minutes Spent Total Time Spent with Patient: Total time spent is greater than 50% in coordination of care (as documented) at patient's floor/unit and/or counseling patient: Coding Level of Care Code 34262 Inpt Consult Level 5 Diagnoses SBO (small bowel obstruction) K56.609
--- NOTE | 2020-04-23 09:06 | XRay Report ---
XR chest 1V portable HISTORY: SEPSIS COMPARISON: None. FINDINGS: The lungs are hyperexpanded with apical predominant emphysematous changes. No pneumothorax. No pleural effusions. The heart is normal in size. No focal lung consolidations to suggest pneumonia . No evidence for pulmonary edema. IMPRESSION: No acute process within the chest. Emphysema. ACT 112: Negative or not required by law. Electronically signed by: Freddie Gambino M.D. 04/23/2020 9:04 AM
--- NOTE | 2020-04-23 09:21 | CT Scan Report ---
CT OF THE ABDOMEN AND PELVIS WITHOUT CONTRAST CLINICAL HISTORY: Abdominal pain, nausea, vomiting and fever. COMPARISON STUDY: No previous studies for comparison. TECHNIQUE: Axial images of the abdomen and pelvis were obtained without IV contrast. Images were revi ewed in the axial, sagittal, and coronal planes. Automated exposure control was utilized for the roxane dy. A dose lowering technique was utilized adhering to the principles of ALARA. FINDINGS: Imaged portions of the lower chest demonstrate emphysema. Mild left lower lobe airspace opa cities favor an infectious process. Nodularity of both adrenal glands is likely benign. Unenhanced im ages of the liver, spleen, adrenal glands and kidneys are normal as are the kidneys. There is no hydr onephrosis. There is no biliary or pancreatic ductal dilatation. There are gallstones within the gall bladder without evidence for acute cholecystitis. Extensive colonic diverticulosis is noted without e vidence for acute diverticulitis. The proximal to mid small bowel is moderately dilated and fluid-elliott led. There is a some point is within the left lower quadrant. No pneumatosis, free air or portal veno us gas is present. There is minimal associated mesenteric infiltration. No suspicious osseous lesions are noted. Evaluation of the abdomen and pelvis is suboptimal on this unenhanced examination. IMPRESSION: 1. Findings consistent with a moderate to high-grade small bowel obstruction with transition point wi thin the left lower quadrant. Minimal associated mesenteric infiltration. No free air, pneumatosis or portal venous gas. 2. Cholelithiasis. No evidence for acute cholecystitis. 3. Emphysema. 4. Mild ground glass opacities within the left lower lobe which favor an infectious process. ACT 112: Negative or not required by law. Electronically signed by: Rajesh Howe M.D. 04/23/2020 9:19 AM
--- NOTE | 2020-04-23 09:37 | XRay Report ---
KUB HISTORY: NGT placement; SBO COMPARISON: Abdomen and pelvis CT 04/22/2020. FINDINGS: Dilated loops of small bowel seen within the lower abdomen consistent with a small bowel ob struction. Nasogastric tube terminates at the distal stomach/pylorus. No renal calculi. No ureteral calculi. No pneumoperitoneum or pneumatosis. IMPRESSION: 1. Nasogastric tube terminates at the distal stomach/pylorus. 2. Small bowel obstruction pattern is again noted. ACT 112: Negative or not required by law. Electronically signed by: Freddie Gambino M.D. 04/23/2020 9:36 AM
[2020-04-23] MEDS: PANTOprazole 40 MG in SYRINGE 0 ML IV SCH ×2 (09:59→20:08)
--- NOTE | 2020-04-23 13:51 | Pharmacy Report ---
Pharmacy Abx Initial Consult - Date of Service April 23, 2020 - Pharmacy Dosing Scope Date of Consult: 04/22/20 Consultation requested by: Dr. Scott Pharmacy is consulted to initiate VANCOMYCIN/ZOSYN IV/PO dosing therapy, order appropriate labs and adjust drug dose/frequency. - Subjective The patient is a 70 year old F admitted on 04/23/20 00:20. - Objective Height: 5 ft 5 in Weight: 44.7 kg Vital Signs (Past 12hrs): Vital Signs Temp Pulse Pulse Resp BP BP Pulse Ox 04/23/20 11:59 102 H 22 96/52 L 95 04/23/20 09:59 97 H 20 105/52 L 99 04/23/20 08:05 97 H 24 104/49 L 97 04/23/20 08:01 37.5 C 04/23/20 03:11 37.4 C 91 H 21 101/53 L 97 Lab Results (24hrs): Laboratory Tests (24 Hours) 04/23/20 04/23/20 04/23/20 12:15 04:44 04:44 WBC 4.75 L Neut # (Auto) 3.23 Creatinine 3.75 H D Est Cr Clr Drug Dosing 9.8 Procalcitonin Random Vancomycin 10.7 04/22/20 04/22/20 04/22/20 21:03 21:03 21:03 WBC 9.73 Neut # (Auto) 6.60 H Creatinine 4.95 H* Est Cr Clr Drug Dosing 7.0 Procalcitonin 5.33 H Random Vancomycin Micro Results: 04/23/20 01:59 Urine Culture - Pending Urine,Clean Catch 04/22/20 21:03 Aerobic Blood Culture - Pending Blood Anaerobic Blood Culture - Pending 04/22/20 21:03 Aerobic Blood Culture - Pending Blood Anaerobic Blood Culture - Pending - Assessment & Plan Assessment Plan VANCOMYCIN/ZOSYN for treatment of SBO. Vancomycin IV * Estimated PK Parameters: Vd 0.7 L/kg * Loading dose: 750mg (~17 mg/kg) * Random level today @ 1200 = 10.7 mcg/mL. * Patient is in NILESH (SCR = 4.95, 3.75; baseline 0.9 per H&P) * Will give another dose of 750mg IV now and recheck a random level in the morning. * Will likely dose empirically based on levels until renal function stabilizes. Pharmacy will continue to follow and will adjust dose/frequency as necessary. Thank you.
[2020-04-23] MEDS ORDERED: VANCOMYCIN HCL 750 MG in SODIUM CHLORIDE 0.9% 250 ML IV SCH (14:00)
--- NOTE | 2020-04-23 16:48 | 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 Note ---
Date of Service: April 23, 2020 Patient admitted earlier today see H&P for details With abdominal pain nausea vomiting, CT abdomen pelvis shows a small bowel obstruction Patient continued with conservative treatment with NG tube, IV fluids Seen at bed side awake and alert denies of any abdominal pain, complaints of sore throat secondary to NG tube Not able to pass any gas, no bowel movements Vitals been stable Continue bowel rest, IV fluids to correct dehydration, acute renal failure secondary to nausea vomiting GI loss: Nephrology will be consulted Continue to follow in the telemetry Jennifer Bain MD
[2020-04-23] MEDS ORDERED: CHLORASEPTIC 1.4% SOLN 180 ML BTL MT PRN (17:19)
[2020-04-23 18:21] LABS: Basophils # (auto) 0.01 K/uL (0-0.2); Basophils % (auto) 0.1 %; Eosinophils # (auto) 0.02 K/uL (0-0.5); Eosinophils % (auto) 0.2 %; Hemoglobin 13.5 g/dL (12.0-16.0); Immature Granulocytes # (auto) 0.16 K/uL (0.00-0.02); Immature Granulocytes % (auto) 1.7 %; Lymphocytes % (auto) 5.4 %; Mean Corpuscular Hemoglobin 32.7 pg (25-34); Mean Corpuscular Volume 94.4 fL (80-100); Mean Platelet Volume 10.9 fL (7.4-10.4); Monocytes # (auto) 1.58 K/uL (0.11-0.59); Neutrophils % (auto) 75.6 %; Platelet Count 229 K/uL (130-400); RDW Coefficient of Variation 13.6 % (11.5-14.5); Red Blood Count 4.13 M/uL (4.2-5.4); White Blood Count 9.27 K/uL (4.8-10.8)
[2020-04-23 18:46] LABS: Albumin Globulin Ratio 0.7 (0.9-2); Albumin Level 2.9 gm/dl (3.4-5.0); BUN Creatinine Ratio 20.2 (10-20); Bilirubin,Total 0.4 mg/dl (0.2-1); Creatinine Clr Calc Pharmacy 12.4 ml/min; Est GFR (African American) 17.6; Est GFR (Non-African American) 15.2; Potassium 5.2 mmol/L (3.5-5.1); Total Protein 6.9 gm/dl (6.4-8.2)
[2020-04-23 18:56] LABS: Mean Corpuscular Hgb Conc 34.6 g/dL (32-36)
[2020-04-23] MEDS ORDERED: DEXTROSE 50% 50 ML SYRINGE IV ONE (18:59)
--- NOTE | 2020-04-23 19:04 | 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 Note ---
Date of Service: April 23, 2020 6 PM lab reviewed Sodium improved to 135/creatinine improved 2.99 Lactic acid within normal limit Potassium 5.2 IV fluids with potassium supplement discontinued Patient will be continued with LR at 125 mL/h Given 10 mg of IV insulin and dextrose for borderline hyperkalemia Repeat labs at midnight No Kayexalate in the setting of acute abdomen/bowel obstruction Jennifer Bain MD
[2020-04-23] MEDS ORDERED: INSULIN HUMAN REGULAR PER UNIT 10 UNITS in SYRINGE 9.9 ML IV ONE (19:15)
[2020-04-23] MEDS: LACTATED RINGER'S 1,000 ML IV SCH (20:08)
[2020-04-24] MEDS: LACTATED RINGER'S 1,000 ML IV SCH (04:11)
[2020-04-24 04:28] LABS: Basophils # (auto) 0.01 K/uL (0-0.2); Basophils % (auto) 0.1 %; Eosinophils # (auto) 0.02 K/uL (0-0.5); Eosinophils % (auto) 0.2 %; Hematocrit (blood only) 35.9 % (37-47); Hemoglobin 12.2 g/dL (12.0-16.0); Immature Granulocytes # (auto) 0.08 K/uL (0.00-0.02); Immature Granulocytes % (auto) 0.9 %; Lymphocytes # (auto) 0.59 K/uL (1.2-3.4); Mean Corpuscular Hemoglobin 31.6 pg (25-34); Mean Platelet Volume 11.2 fL (7.4-10.4); Monocytes # (auto) 1.73 K/uL (0.11-0.59); Monocytes % (auto) 20.4 %; Neutrophils # (auto) 6.05 K/uL (1.4-6.5); Neutrophils % (auto) 71.4 %; Platelet Count 225 K/uL (130-400); RDW Coefficient of Variation 13.5 % (11.5-14.5); RDW Standard Deviation 45.9 fL (36.4-46.3); Red Blood Count 3.86 M/uL (4.2-5.4); White Blood Count 8.48 K/uL (4.8-10.8)
[2020-04-24 04:56] LABS: BUN Creatinine Ratio 25.6 (10-20); Calcium 8.3 mg/dl (8.5-10.1); Creatinine Clr Calc Pharmacy 17.9 ml/min; Est GFR (African American) 27.6; Est GFR (Non-African American) 23.8; Potassium 4.3 mmol/L (3.5-5.1)
--- NOTE | 2020-04-24 07:32 | Surgery Progress Note ---
Date of Service April 24, 2020 Assessment & Plan (1) SBO (small bowel obstruction): -clinical improvement noted since placement of NGT: -renal function improved -pt. is not hypotensive or tachycardic -WBC normal -will keep NGT in until return of bowel function Admission and Anticipated Discharge Date Admission Date: April 23, 2020 Supervising Physician Co-Signing Physician Notes 70-year-old female admitted with small bowel obstruction along with acute renal failure and hypokalemic hypochloremic acidosis secondary to vomiting. NG tube placed yesterday, 4 L out since then. Overall she is feeling much better. She thinks she may have passed gas but not much. Her abdomen is no longer painful and her labs are improving. Continue nonoperative management. Subjective Pt. notes that since NGT placed she has had no further N/V and she has less abdominal pain. Discussed with RN--pt. has clinically improved sincne placement of NGT. Physical Exam Constitutional: + thin; no acute distress Neck: trachea midline Respiratory: normal respiratory effort; no respiratory distress and no labored breathing Cardiovascular: Rate/Rhythm: regular rate and regular rhythm Gastrointestinal (Abdomen): Inspection/Auscultation: + hypoactive bowel sounds Percussion/Palpation: abdomen soft; abdomen nontender no rebound tenderness or guarding Results & Data ([facility]) Vital Signs (Past 12 Hours) Vital Signs Temp Pulse Resp BP Pulse Ox 04/24/20 04:00 37.2 C 85 21 117/51 L 98 04/24/20 00:00 37.2 C 93 H 19 111/50 L 96 04/23/20 23:59 91 H 04/23/20 20:16 36.9 C 98 H 26 H 121/53 L 97 PG Care Time/CCT Total # of Minutes Spent Total Time Spent with Patient: Total time spent is greater than 50% in coordination of care (as documented) at patient's floor/unit and/or counseling patient: Coding Level of Care Code 01841 Subseq Hosp Care Lvl 1 Diagnoses SBO (small bowel obstruction) K56.609
--- NOTE | 2020-04-24 08:01 | XRay Report ---
KUB CLINICAL HISTORY: Small bowel obstruction. COMPARISON STUDY: CT of the abdomen and pelvis April 22, 2020. KUB April 23, 2020. FINDINGS: Tip of nasogastric tube projects over the first portion of the duodenum. Multiple loops of mildly dilated small bowel are noted. Multiple dilatation has decreased since CT of April 22, 2020. Slightly decreased since prior KUB is also noted. IMPRESSION: 1. Persistent, but mildly improved, small bowel dilatation. Findings favor a small bowel obstruction. 2. Tip of nasogastric tube projects over the first portion of the duodenum. The tube could be withdra wn 3 cm to reach the distal stomach. ACT 112: Negative or not required by law. Electronically signed by: Rajesh Howe M.D. 04/24/2020 8:00 AM
[2020-04-24] MEDS: PANTOprazole 40 MG in SYRINGE 0 ML IV SCH (08:22)
[2020-04-24] MEDS: HYDROmorphone INJ 0.5 MG/0.5 ML SYR IV PRN ×2 (08:22→17:46)
--- NOTE | 2020-04-24 09:50 | Hospitalist Progress Note ---
Date of Service April 24, 2020 Assessment & Plan (1) SBO (small bowel obstruction): . With abdominal pain nausea vomiting CT abdomen pelvis showed high-grade of small bowel obstruction, Appreciate input from surgery, NG tube placed, with drainage of significant amount almost 5 L of bilious liquid Continue bowel rest n.p.o., IV fluid resuscitation Per surgery team, gradual improvement noted, no indication for emergent exploratory laparotomy, Expected to spontaneous resolution with bowel movement only Today patient reports improvement of abdominal pain, no nausea as NG suction is continued, able to pass gas KUB shows some improvement of dilated loops of small bowel (2) Elevated lactic acid level: Due to above-small bowel obstruction/hypotensive episode, no evidence of sepsis Lactic acid level normalized with IV fluid resuscitation only Antibiotic discontinued (3) Acute renal failure: Acute renal failure: Possibly secondary to dehydration, ischemic ATN in the setting of small bowel obstruction/hypotension Was 4.95 on admission, improved to 2.06 today a Renal function gradually improving with IV fluids Appreciate input from nephrology, Patient still having significant amount of NG tube drainage increased NSS rate at 200 mL/h Monitor daily BMP Avoid NSAIDs, contrast studies CODE STATUS: Full code DVT prophylaxis: SCD and teds Disposition: Expected to be discharged home when medically stable We will have a PT OT evaluation prior to discharge home Admission and Anticipated Discharge Date Admission Date: April 23, 2020 Subjective Consult with better today, Complaints of sore throat secondary to NG tube, No fever or chills Abdominal pain has improved, Able to pass gas, no bowel movement yet Results & Data Results & Data ([facility]) Vital Signs (Past 12 Hours) Vital Signs Temp Pulse Resp BP Pulse Ox 04/24/20 04:00 37.2 C 85 21 117/51 L 98 04/24/20 00:00 37.2 C 93 H 19 111/50 L 96 04/23/20 23:59 91 H
--- NOTE | 2020-04-24 10:18 | Nephrology Consultation ---
Date of Consultation April 24, 2020 Assessment & Plan (1) Acute renal failure: Patient with acute renal failure likely due to ischemic ATN in setting of small bowel obstruction. Patient was hypotensive with high lactate on admission. Urinalysis also showed granular casts and numerous RBCs consistent with ATN. Management of ATN is conservative. Renal function is improving already. No indication for dialysis -Recommend changing to normal saline at increased rate of infusion to 200 mL/h. -Daily BMP (2) SBO (small bowel obstruction): Patient is being managed conservatively by NG decompression per surgical team. We will aggressively replete fluid to match fluid losses from the NG suction History of Present Illness Reason for Consultation: Acute kidney injury Requesting Physician: Jennifer Bain MD Attending Physician: Jennifer Bain MD History of Present Illness This is 70-year-old female with history of COPD, fibromyalgia, hyperlipidemia, migraine, and arthritis who was admitted on 04/23/2020 with 3 days of vomiting. She was found to have small bowel obstruction. She had acute kidney injury with creatinine of 4.9 and lactate of 6.5. She is being managed conservatively by NG decompression. Creatinine is downtrending to 2. Urinalysis showed 5-10 RBCs per high-power field and granular casts 1-5 per high-power field. No shortness of breath. She denies NSAID use. Vomiting has subsided. She takes hydrocodone for fibromyalgia and Fioricet for migraine. She made 1.2 L of urine and 4.6 L of NG suction. She was net -2.4 L. She had hyperkalemia 5.2 yesterday which was managed medically. She is getting LR at 125/h. Patient has normal renal function at baseline. Allergies Allergy/AdvReac Type Severity Reaction Status Date / Time No Known Allergies Allergy Unverified 04/22/20 23:40 Home Medications Home Medications Medication Instructions Recorded Confirmed Type albuterol sulfate 1 puff INHALATION QID PRN 04/22/20 04/22/20 History albuterol sulfate 2.5 mg INHALATION Q4 PRN 04/22/20 04/22/20 History alendronate 70 mg PO WK 04/22/20 04/22/20 History atorvastatin 10 mg PO DAILY 04/22/20 04/22/20 History gopigrdrsw-ikcfphsgae-mca-cod 1 cap PO Q4 PRN 04/22/20 04/22/20 History calcium carbonate-vitamin D3 1 cap PO BID 04/22/20 04/22/20 History [Calcium 600 + D(3)] carisoprodol 350 mg PO TID PRN 04/22/20 04/22/20 History cholecalciferol (vitamin D3) 25 mcg PO DAILY 04/22/20 04/22/20 History [Vitamin D3] hydrocodone-acetaminophen 1 tab PO TID PRN 04/22/20 04/22/20 History mv,with Ty-owwn-NF-lut-179herb 1 tab PO DAILY 04/22/20 04/22/20 History [[facility]] omeprazole 40 mg PO QAM 04/22/20 04/22/20 History zolpidem 10 mg PO HS 04/22/20 04/22/20 History Patient History Medical History COPD (chronic obstructive pulmonary disease) Fibromyalgia Hyperlipidemia Lumbar disc disease Migraine Osteoporosis Tobacco use Social History Smoking Status: Current every day smoker Tobacco Type: Cigarettes Second Hand Exposure: Yes; Do You Dip or Chew Tobacco: No; Tobacco Cessation Education Requested by Patient: No Hx Alcohol Use: No Hx Substance Use: No Preferred Language: Malian 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 Ability: Effective Gis Manager Required: No Beliefs That Will Affect Care: None marital status: Current Living Situation: Spouse Other Information That Helps Us Care for You: No Feels Safe at Home: Yes Safety Concerns: Feels Safe At This Time Review of Systems Review of Systems: All systems reviewed & are unremarkable except as noted in HPI & below Physical Exam Physical Exam: General exam: Appears comfortable, no acute distress HEENT: Pupils are equal and reactive to light Neck: No JVD, neck is supple trachea is midline Respiratory system: Clear breath sounds bilaterally. Gastrointestinal: Abdomen is soft, non distended, non tender, bowel sounds are present CVS: Regular rate and rhythm. No murmurs, rubs or gallops Musculoskeletal: No joint or muscle tenderness Extremities: Non tender, no edema, peripheral pulses are present Neuro: Oriented, no tremors, no focal neurological deficits Skin: No rashes Results & Data ([facility]) Vital Signs (Past 12 Hours) Vital Signs Temp Pulse Resp BP Pulse Ox 04/24/20 04:00 37.2 C 85 21 117/51 L 98 04/24/20 00:00 37.2 C 93 H 19 111/50 L 96 04/23/20 23:59 91 H Laboratory Results 04/24/20 04:17 04/23/20 04/23/20 04/24/20 18:10 18:10 03:59 WBC 9.27 8.48 RBC 4.13 L 3.86 L MCV 94.4 93.0 MCH 32.7 31.6 MCHC 34.6 34.0 RDW Std Deviation 47.0 H 45.9 RDW Coeff of Nakul 13.6 13.5 Plt Count 229 225 MPV 10.9 H 11.2 H Albumin 2.9 L
[2020-04-24] MEDS: SODIUM CHLORIDE 0.9% 1000ML 1,000 ML IV SCH ×3 (10:57→21:11)
[2020-04-25] MEDS: SODIUM CHLORIDE 0.9% 1000ML 1,000 ML IV SCH ×2 (01:54→06:08)
[2020-04-25 08:14] LABS: Hematocrit (blood only) 36.2 % (37-47); Hemoglobin 11.8 g/dL (12.0-16.0); Mean Corpuscular Hemoglobin 31.3 pg (25-34); Mean Corpuscular Hgb Conc 32.6 g/dL (32-36); Mean Platelet Volume 10.8 fL (7.4-10.4); Platelet Count 232 K/uL (130-400); RDW Coefficient of Variation 13.6 % (11.5-14.5); RDW Standard Deviation 47.3 fL (36.4-46.3); Red Blood Count 3.77 M/uL (4.2-5.4); White Blood Count 6.24 K/uL (4.8-10.8)
--- NOTE | 2020-04-25 08:32 | Electrocardiogram Report ---
Test Reason : Blood Pressure : / mmHG Vent. Rate : 106 BPM Atrial Rate : 106 BPM P-R Int : 114 ms QRS Dur : 082 ms QT Int : 408 ms P-R-T Axes : 082 077 072 degrees QTc Int : 541 ms Poor data quality, interpretation may be adversely affected Sinus tachycardia ST depression in multiple leads , consider ischemia Prolonged QT Abnormal ECG When compared with ECG of 08-MAR-2015 11:45, Confirmed by Marquis Godinez ([id number]) on 04/25/2020 8:31:45 AM Referred By: REFERRED SELF Confirmed By:Marquis Godinez
[2020-04-25 08:49] LABS: Est GFR (African American) 73.1; Est GFR (Non-African American) 63.1; Potassium 3.7 mmol/L (3.5-5.1)
[2020-04-25 08:50] LABS: Calcium 8.9 mg/dl (8.5-10.1); Creatinine Clr Calc Pharmacy 39.8 ml/min
--- NOTE | 2020-04-25 08:56 | XRay Report ---
KUB HISTORY: Small bowel obstruction. Follow-up. COMPARISON: KUB 04/24/2020. FINDINGS: The nasogastric tube terminates in the distal stomach. Interval decompression of the dilate d loops of small bowel. Stable phlebolith within the right lower quadrant. No renal calculi. No uret eral calculi. No pneumoperitoneum or pneumatosis. IMPRESSION: The nasogastric tube terminates in the distal stomach. Interval decompression of the dilated loops of small bowel. ACT 112: Negative or not required by law. Electronically signed by: Freddie Gambino M.D. 04/25/2020 8:55 AM
[2020-04-25 08:58] LABS: Basophils # (auto) 0.01 K/uL (0-0.2); Basophils % (auto) 0.2 %; Eosinophils # (auto) 0.01 K/uL (0-0.5); Eosinophils % (auto) 0.2 %; Immature Granulocytes # (auto) 0.27 K/uL (0.00-0.02); Immature Granulocytes % (auto) 4.3 %; Lymphocytes # (auto) 1.29 K/uL (1.2-3.4); Lymphocytes % (auto) 20.7 %; Monocytes # (auto) 0.69 K/uL (0.11-0.59); Monocytes % (auto) 11.1 %; Neutrophils # (auto) 3.97 K/uL (1.4-6.5); Neutrophils % (auto) 63.5 %
--- NOTE | 2020-04-25 08:59 | Electrocardiogram Report ---
Test Reason : Blood Pressure : / mmHG Vent. Rate : 099 BPM Atrial Rate : 099 BPM P-R Int : 096 ms QRS Dur : 074 ms QT Int : 392 ms P-R-T Axes : 065 069 076 degrees QTc Int : 503 ms Sinus rhythm with short SC Low voltage QRS T wave abnormality, consider anterior ischemia Abnormal ECG When compared with ECG of 22-APR-2020 20:28, T wave inversion now evident in Anterior leads ST depression in multiple leads no longer present Confirmed by Marquis Godienz ([id number]) on 04/25/2020 8:58:44 AM Referred By: REFERRED SELF Confirmed By:Marquis Godinez
--- NOTE | 2020-04-25 09:14 | Nephrology Progress Note ---
Date of Service April 25, 2020 Assessment & Plan (1) Acute renal failure: nonoliguric prerenal NILESH in setting of small bowel obstruction. Patient was hypotensive with high lactate on admission. Urinalysis also showed granular casts and numerous RBCs consistent with early ATN, in addition to prerenal findings of sg, ketonuria. She has responded well to aggresive IVF. Management of this NILESH is conservative. Renal function has normalized with aggressive resuscitation and other conservative care. No indication for dialysis. Today with hypernatremia, non AG metabolic acidosis -changed NS back to LR at lower rate of 125 mL hourly. -Daily BMP but also ordered recheck for 1600>> based on these labs, Dr Bain' communication recommends D5W1/2 NS with 20 mEq and K riders; will change this to D5W with 75 mEq/L sodium bicarbonate and 40 mEq/L K at 150 mL hourly and d/c riders to best address elevated Na, low K, NAGMA (2) SBO (small bowel obstruction): Patient is being managed conservatively by NG decompression per surgical team. We will aggressively replete fluid to match fluid losses from the NG suction but given electrolyte issues change IVF as above Admission and Anticipated Discharge Date Admission Date: April 23, 2020 Subjective passing gas; no BM; very thirsty trying to cut back; denies voidign issues or abd pain Review of Systems Review of Systems: All systems reviewed & are unremarkable except as noted in HPI & below Physical Exam Constitutional: well developed and + thin; no acute distress Eyes: EOM intact bilaterally ENMT: Ears: no external ear abnormality Nose: no external nose abnormality Mouth: + dry oral mucous membranes Neck: no nuchal rigidity Respiratory: normal respiratory effort Auscultation: + diminished lung sounds Cardiovascular: Rate/Rhythm: + tachycardic Gastrointestinal (Abdomen): Inspection/Auscultation: + abdomen distended Percussion/Palpation: abdomen soft; abdomen nontender and no guarding NGT with copious green output Musculoskeletal: Extremities: strength 5/5 throughout Skin: no rashes, warm and dry Neurologic: mckeon, fluent speech, no tremor Psychiatric: A+Ox3, euthymic affect Genitourinary: no flower Results & Data ([facility]) Vital Signs (Past 12 Hours) Vital Signs Temp Pulse Pulse Resp BP Pulse Ox 04/25/20 07:39 81 04/25/20 07:20 36.6 C 80 16 122/60 95 04/25/20 03:09 36.6 C 93 H 18 133/71 92 04/24/20 23:44 88 04/24/20 22:09 36.4 C L 86 20 127/67 95 Laboratory Results 04/25/20 07:56 04/25/20 07:56 1600 labs reviewed
[2020-04-25] MEDS: LACTATED RINGER'S 1,000 ML IV SCH ×2 (09:30→16:23)
--- NOTE | 2020-04-25 09:32 | Surgery Progress Note ---
Date of Service April 25, 2020 Assessment & Plan (1) SBO (small bowel obstruction): Patient here with SBO She clinically is feeling better NGT documented 2600 over last 24 hours, patient was taking in sips of liquid yesterday- this could account for some of her high output Abdomen soft, non distended, non tender Starting to pass flatus, no BM yet KUB this AM revealed interval decompression of dilated loops of small bowel; will discuss NGT plans with Dr. Peralta Encourage ambulation Cr improved, nephrology following Admission and Anticipated Discharge Date Admission Date: April 23, 2020 Supervising Physician Co-Signing Physician Notes Patient seen and examined, labs and KUB reviewed, agree with above. 70-year-old female admitted with small bowel obstruction along with hypokalemic, hypochloremic metabolic acidosis and renal failure. She has started to pass some gas. Her abdomen feels much better than it did upon arrival. On exam she is afebrile stable vitals. Abdomen is soft, nondistended, nontender. NG tube with over 2 L out over past 24 hours. Difficult to say how much of this is attributable to ice chips and water that she has been drinking. KUB improved this morning. Labs show resolution of renal failure and metabolic acidosis. At this point she is doing quite well, and responding to nonoperative management. I am hesitant to pull out the tube with 2300 cc of output over past 24 hours. It is okay if she has ice chips and water, however I would like this strictly recorded so that we can determine and accurate amount of NG tube output. She is still doing well tomorrow and NG tube output decreases, we can remove the tube and advance her diet. Subjective Patient seen resting in bed with visitor at her side. She states she wants her NGT out and that she is very thirsty. She is passing flatus, no BM yet. Denies nausea/vomiting. Says she has some discomfort when she feels the NGT is suctioning, otherwise denies much pain. Physical Exam Physical Exam: awake/alert Gastrointestinal (Abdomen): Inspection/Auscultation: abdomen not distended Percussion/Palpation: abdomen soft; abdomen nontender Results & Data ([facility]) Vital Signs (Past 12 Hours) Vital Signs Temp Pulse Pulse Resp BP Pulse Ox 04/25/20 07:39 81 04/25/20 07:20 36.6 C 80 16 122/60 95 04/25/20 03:09 36.6 C 93 H 18 133/71 92 04/24/20 23:44 88 04/24/20 22:09 36.4 C L 86 20 127/67 95 PG Care Time/CCT Total # of Minutes Spent Total Time Spent with Patient: Total time spent is greater than 50% in coordination of care (as documented) at patient's floor/unit and/or counseling patient: Coding Level of Care Code 18831 Subseq Hosp Care Lvl 1 Diagnoses SBO (small bowel obstruction) K56.609
[2020-04-25] MEDS: PANTOprazole 40 MG in SYRINGE 0 ML IV SCH (11:16)
[2020-04-25 16:53] LABS: BUN Creatinine Ratio 30.4 (10-20); Calcium 8.8 mg/dl (8.5-10.1); Creatinine Clr Calc Pharmacy 44.1 ml/min; Est GFR (African American) 82.8; Est GFR (Non-African American) 71.4; Potassium 3.1 mmol/L (3.5-5.1)
[2020-04-25] MEDS ORDERED: ACETAMINOPHEN 1,000 MG/100 ML VIAL IV PRN (17:58)
--- NOTE | 2020-04-25 18:04 | Hospitalist Progress Note ---
Date of Service April 25, 2020 Assessment & Plan (1) SBO (small bowel obstruction): . Presented abdominal pain nausea vomiting CT abdomen pelvis showed high-grade of small bowel obstruction, Appreciate input from surgery, NG tube placed, Patient able to pass gas no bowel movement yet KUB shows decompressed small bowel loops noted Patient is allowed to have ice chips, allow NG tube to be clamped for 6/8 hours, encourage patient to ambulate, Possible discontinue of NG tube tomorrow morning by surgery if patient significantly improved clinically (2) Elevated lactic acid level: Due to above-small bowel obstruction/hypotensive episode, no evidence of sepsis Normalized with IV fluid resuscitation (3) Acute renal failure: Creatinine less than 1 now Acute renal failure: Possibly secondary to dehydration, ischemic ATN in the setting of small bowel obstruction/hypotension Was 4.95 on admission, Patient input from nephrology Avoid NSAIDs, contrast studies CODE STATUS: Full code DVT prophylaxis: SCD and teds Disposition: Expected to be discharged home when medically stable Ordered for PT OT evaluation Admission and Anticipated Discharge Date Admission Date: April 23, 2020 Subjective Patient seen and examined at bedside, Denies of any abdominal pain, able to pass gas, no bowel movement yet NG tube is drainage has slowed down Review of Systems Review of Systems: All systems reviewed & are unremarkable except as noted in HPI & below Physical Exam Physical Exam: awake/alert Constitutional: WD/WN, vitals as above + thin; no acute distress Eyes: PERRL, conjunctivae normal, anicteric sclerae no conjunctival abnormality ENMT: Ears: no hearing impairment Neck: trachea midline Respiratory: normal respiratory effort; no respiratory distress and no labored breathing Cardiovascular: Rate/Rhythm: regular rate and regular rhythm Gastrointestinal (Abdomen): Inspection/Auscultation: + hypoactive bowel sounds; abdomen not distended Percussion/Palpation: abdomen soft; abdomen nontender Skin: no rashes, warm and dry Neurologic: moves all extremities Results & Data Results & Data ([facility]) Vital Signs (Past 12 Hours) Vital Signs Temp Pulse Pulse Resp BP Pulse Ox 04/25/20 16:31 78 04/25/20 15:41 36.6 C 76 16 139/57 L 97 04/25/20 07:39 81 04/25/20 07:20 36.6 C 80 16 122/60 95
--- NOTE | 2020-04-25 18:08 | 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 Note ---
Date of Service: April 25, 2020 Low potassium: Due to NG suction, replaced IV supplement Hypernatremia, will DC LR Dextrose half-normal saline at a rate of 80 mL/h Repeat BMP in a.m. We will DC IV Dilaudid in the setting of bowel obstruction, patient reports of minimum or no abdominal pain, PRN IV Tylenol Jennifer Bain MD
[2020-04-25] MEDS ORDERED: D5W AND 1/2NSS + 20MEQ KCL 20 MEQ/1,000 ML BAG IV SCH (18:30)
[2020-04-25] MEDS ORDERED: POTASSIUM CHLORIDE / WTR 10 MEQ/100 ML PLCT IV SCH (18:30)
[2020-04-25] MEDS ORDERED: LORazepam 1 MG/2 ML VIAL IV PRN (19:10)
[2020-04-25] MEDS: DEXTROSE 5% IV SCH (20:13)
[2020-04-25] MEDS: POTASSIUM CHLORIDE IV SCH (20:13)
[2020-04-25] MEDS: SODIUM BICARBONATE IV SCH (20:13)
[2020-04-25 23:51] LABS: BUN Creatinine Ratio 27.1 (10-20); Calcium 9.4 mg/dl (8.5-10.1); Creatinine Clr Calc Pharmacy 44.1 ml/min; Est GFR (African American) 82.8; Est GFR (Non-African American) 71.4; Potassium 3.2 mmol/L (3.5-5.1)
[2020-04-26] MEDS ORDERED: POTASSIUM CHLORIDE 20 MEQ/15 ML UDC PO STA (00:01)
[2020-04-26] MEDS: POTASSIUM CHLORIDE / WTR 10 MEQ/100 ML PLCT IV SCH ×4 (00:51→04:16)
[2020-04-26] MEDS ORDERED: PIPERACILL/TAZOBAC CONSULT ACTIVE PRN (01:34)
[2020-04-26] MEDS ORDERED: PIPERACILLIN/TAZOBACTAM 3.375 GM in DEXTROSE 5% 100 ML IV ONE (02:00)
[2020-04-26] MEDS: POTASSIUM CHLORIDE IV SCH ×2 (05:19→14:59)
[2020-04-26] MEDS: SODIUM BICARBONATE IV SCH ×2 (05:19→14:59)
[2020-04-26] MEDS: DEXTROSE 5% IV SCH ×2 (05:19→14:59)
[2020-04-26] MEDS: PIPERACILLIN/TAZOBACTAM 3.375 GM in DEXTROSE 5% 100 ML IV SCH ×3 (05:20→21:25)
--- NOTE | 2020-04-26 07:18 | CT Scan Report ---
CT SCAN OF THE BRAIN WITHOUT IV CONTRAST CLINICAL HISTORY: Change in mental status. COMPARISON STUDY: No priors. TECHNIQUE: Unenhanced axial CT scan of the brain is performed from the vertex to the skull base. A do se lowering technique was utilized adhering to the principles of ALARA. CT DOSE: 537.48 mGy.cm FINDINGS: Brain parenchyma: There are age-related involutional changes noting minimal subcortical and perivent ricular microangiopathic change. There is no hemorrhage, mass effect, or evidence of acute territoria l ischemia by CT criteria. Christiansen-white matter differentiation is preserved. No extra-axial fluid colle ction is seen. Ventricles, sulci, cisterns: Prominent secondary to involutional change. Intracranial vasculature: There is atherosclerotic calcification of the cavernous carotid and vertebr al arteries. Calvarium: Unremarkable. Sinuses and mastoids: The visualized paranasal sinuses are clear. The mastoid air cells are well pneu matized. Orbits: The bony orbits are grossly intact. IMPRESSION: There is no hemorrhage, mass effect, or evidence of acute territorial ischemia by CT trell randall. ACT 112: Negative or not required by law. Electronically signed by: Harsha Rossi M.D. 04/26/2020 7:16 AM
[2020-04-26 08:29] LABS: BUN Creatinine Ratio 22.1 (10-20); Calcium 9.2 mg/dl (8.5-10.1); Creatinine Clr Calc Pharmacy 42.1 ml/min; Est GFR (African American) 78.2; Est GFR (Non-African American) 67.5
[2020-04-26 08:31] LABS: Hematocrit (blood only) 33.6 % (37-47); Hemoglobin 11.7 g/dL (12.0-16.0); Mean Corpuscular Hemoglobin 32.2 pg (25-34); Mean Corpuscular Hgb Conc 34.8 g/dL (32-36); Mean Corpuscular Volume 92.6 fL (80-100); Mean Platelet Volume 10.6 fL (7.4-10.4); Platelet Count 232 K/uL (130-400); RDW Coefficient of Variation 13.5 % (11.5-14.5); RDW Standard Deviation 46.1 fL (36.4-46.3); Red Blood Count 3.63 M/uL (4.2-5.4); White Blood Count 8.39 K/uL (4.8-10.8)
--- NOTE | 2020-04-26 11:23 | Surgery Progress Note ---
Date of Service April 26, 2020 Assessment & Plan (1) SBO (small bowel obstruction): Patient here with SBO NGT self d/c'd yesterday evening during period of confusion This morning she is A&Ox3 and is feeling well Abdomen soft, non tender, non distended She is starting to have bowel function Okay to start on clear liquids Admission and Anticipated Discharge Date Admission Date: April 23, 2020 Supervising Physician Co-Signing Physician Notes Patient seen and examined, agree with above. Resolving sbo, pulled ng tube out last night when confused. Multiple bm's, no pain. tolerating clears. advance as tolerated to low fiber diet. Subjective Patient had an eventful night of confusion and she pulled out her NGT. She states she has no recollection of last night. This morning she is a&ox3. She states she feels fine without NGT in place. Denies nausea/vomiting/abdominal pain. She is passing gas and had a BM yesterday evening. Physical Exam Physical Exam: awake/alertx3 Constitutional: well developed; no acute distress Gastrointestinal (Abdomen): Inspection/Auscultation: abdomen not distended Percussion/Palpation: abdomen soft; abdomen nontender Results & Data ([facility]) Vital Signs (Past 12 Hours) Vital Signs Temp Pulse Resp BP Pulse Ox 04/26/20 03:20 37.2 C 67 20 110/52 L 94 PG Care Time/CCT Total # of Minutes Spent Total Time Spent with Patient: Total time spent is greater than 50% in coordination of care (as documented) at patient's floor/unit and/or counseling patient: Coding Level of Care Code 51687 Subseq Hosp Care Lvl 1 Diagnoses SBO (small bowel obstruction) K56.609
[2020-04-26] MEDS: PANTOprazole 40 MG in SYRINGE 0 ML IV SCH (14:59)
--- NOTE | 2020-04-26 16:53 | Nephrology Progress Note ---
Date of Service April 26, 2020 Assessment & Plan (1) Acute renal failure: nonoliguric prerenal NILESH in setting of small bowel obstruction. Patient was hypotensive with high lactate on admission with presenting and peak creatinine 5. Urinalysis also showed granular casts and numerous RBCs c onsistent with early ATN, in addition to prerenal findings of sg, ketonuria. Management of this NILESH is conservative. Renal function has normalized with aggressive resuscitation and other conservative care. Today with mild hyperkalemia and K has normalized -hold ivf for now -cont po intake as tolerated -Daily BMP but also ordered recheck for 1700>> pending and restart ivf as indicated (2) SBO (small bowel obstruction): Patient was managed conservatively by NG decompression per surgical team. NGT out approx 04/26 and pt on clears > follow status Admission and Anticipated Discharge Date Admission Date: April 23, 2020 Subjective NGT out; ambulating; no sob; taking small amounts of clears and tolerating so far without n/v or worse abd pain. no voiding concerns or edema Review of Systems Review of Systems: All systems reviewed & are unremarkable except as noted in HPI & below Physical Exam Constitutional: well developed and + thin; no acute distress up in chair on RA Eyes: EOM intact bilaterally ENMT: Ears: no external ear abnormality Nose: no external nose abnormality Mouth: + dry oral mucous membranes Neck: no nuchal rigidity Respiratory: normal respiratory effort Auscultation: + diminished lung sounds Cardiovascular: Rate/Rhythm: + tachycardic Gastrointestinal (Abdomen): Inspection/Auscultation: + abdomen distended Percussion/Palpation: abdomen soft; abdomen nontender and no guarding Musculoskeletal: Extremities: strength 5/5 throughout Skin: no rashes, warm and dry Neurologic: mckeon, fluent speech, no tremor Psychiatric: A+Ox3, euthymic affect Results & Data ([facility]) Vital Signs (Past 12 Hours) Vital Signs Temp Pulse Resp BP Pulse Ox 04/26/20 15:37 36.5 C 90 18 115/69 95 04/26/20 11:21 36.5 C 64 18 129/65 93 Laboratory Results 04/26/20 08:15 04/26/20 07:16
--- NOTE | 2020-04-26 17:28 | Hospitalist Progress Note ---
Date of Service April 26, 2020 Assessment & Plan (1) SBO (small bowel obstruction): resolved . Presented abdominal pain nausea vomiting CT abdomen pelvis showed high-grade of small bowel obstruction, Appreciate input from surgery, pt treated conservatively with IV fluid , NG suction , bowel rest KUB shows decompressed small bowel loops noted pt able to have bowel movements . NG tube D/froilan tolerating clears , will advance to full liquid diet in am , then advance diet as tolerated (2) Elevated lactic acid level: Due to above-small bowel obstruction/hypotensive episode, no evidence of sepsis Normalized with IV fluid resuscitation (3) Acute renal failure: cr was 0.8 in am , worsened to 1.28 this evening pt had multiple loose bowel movements , post obstructive diarrhea nephrology updated IV fluids as per nephrology Acute renal failure: Possibly secondary to dehydration, ischemic ATN in the setting of small bowel obstruction/hypotension Was 4.95 on admission, Patient input from nephrology Avoid NSAIDs, contrast studies CODE STATUS: Full code DVT prophylaxis: SCD and teds Disposition: Expected to be discharged home in next 24 hrs if remains medically stabl pt is independent , walking on hallway Admission and Anticipated Discharge Date Admission Date: April 23, 2020 Subjective sitting up on chair feeling fine tolerating clears had multiple bowel movements today no nausea /vomiting no complain of abdominal pain Review of Systems Review of Systems: All systems reviewed & are unremarkable except as noted in HPI & below Physical Exam Physical Exam: awake/alert Constitutional: WD/WN, vitals as above + thin; no acute distress Eyes: PERRL, conjunctivae normal, anicteric sclerae no conjunctival abnormality ENMT: Ears: no hearing impairment Neck: trachea midline Respiratory: normal respiratory effort; no respiratory distress and no labored breathing Cardiovascular: Rate/Rhythm: regular rate and regular rhythm Gastrointestinal (Abdomen): normal bowel sounds, soft, nontender, no hepatosplenomegaly Inspection/Auscultation: normal bowel sounds Percussion/Palpation: abdomen soft; abdomen nontender Skin: no rashes, warm and dry Neurologic: moves all extremities Results & Data Results & Data ([facility]) Vital Signs (Past 12 Hours) Vital Signs Temp Pulse Resp BP Pulse Ox 04/26/20 15:37 36.5 C 90 18 115/69 95 04/26/20 11:21 36.5 C 64 18 129/65 93
[2020-04-26 17:36] LABS: BUN Creatinine Ratio 13.1 (10-20); Calcium 9.7 mg/dl (8.5-10.1); Creatinine Clr Calc Pharmacy 28.6 ml/min; Est GFR (Non-African American) 42.3; Potassium 3.8 mmol/L (3.5-5.1)
[2020-04-26] MEDS ORDERED: LACTATED RINGER'S 1,000 ML IV SCH (20:45)
[2020-04-26] MEDS ORDERED: ZOLPIDEM TARTRATE 10 MG TAB PO SCH (21:00)
[2020-04-26] MEDS: NORMOSOL-R 1,000 ML IV SCH (21:22)
[2020-04-27] MEDS: PIPERACILLIN/TAZOBACTAM 3.375 GM in DEXTROSE 5% 100 ML IV SCH ×2 (05:04→14:08)
[2020-04-27 07:06] LABS: BUN Creatinine Ratio 11.7 (10-20); Creatinine Clr Calc Pharmacy 37.4 ml/min; Est GFR (African American) 67.7; Est GFR (Non-African American) 58.4; Magnesium 1.7 mg/dl (1.8-2.4); Potassium 3.4 mmol/L (3.5-5.1)
--- NOTE | 2020-04-27 08:48 | Nephrology Progress Note ---
Date of Service April 27, 2020 Assessment & Plan (1) Acute renal failure: nonoliguric prerenal Stage 3 NILESH in setting of small bowel obstruction. Patient was hypotensive with high lactate on admission with presenting and peak creatinine 5. Urinalysis also showed granular casts and numerous RBCs consistent with early ATN, in addition to prerenal findings of sg, ketonuria. Management of this NILESH is conservative. Renal function had normalized with aggressive resuscitation and other conservative care; with stopping ivf creatinien went in 16 hrs from 1.0 > 1.3 and had normosol overnight. Today with mild hypokalemia; other chemistries ok ->>>continue normosol current rate while in house -cont po intake as tolerated -Daily BMP while in house >>>pt has been eager for d/c home; if this is planned, recommend continue IVF up to d/c, then plan to recheck bmp tomorrow as OP, may need IVF at [facility] on 04/28 or other days; recheck bmp on 05/02 as well; will also need renal clinic follow up with me or PA within 2 wks of discharge: this degree of NILESH has high risk for recurrence and readmission (2) SBO (small bowel obstruction): Patient was managed conservatively by NG decompression per surgical team. NGT out approx 04/26 and pt on clears > follow status Admission and Anticipated Discharge Date Admission Date: April 23, 2020 Subjective creatinine bumped up to 1.3 last evening after day off of IVF; put her back on normosol at 80 mL hourly overnight; creatinine back to 1.0 this am Physical Exam Constitutional: well developed and + thin; no acute distress Eyes: EOM intact bilaterally ENMT: Ears: no external ear abnormality Nose: no external nose abnormality Mouth: + dry oral mucous membranes Neck: no nuchal rigidity Respiratory: normal respiratory effort Auscultation: + diminished lung sounds Cardiovascular: Rate/Rhythm: + tachycardic Gastrointestinal (Abdomen): Inspection/Auscultation: + abdomen distended Percussion/Palpation: abdomen soft; abdomen nontender and no guarding Musculoskeletal: Extremities: strength 5/5 throughout Skin: no rashes, warm and dry Psychiatric: A+Ox3, euthymic affect Results & Data ([facility]) Vital Signs (Past 12 Hours) Vital Signs Temp Pulse Resp BP Pulse Ox 04/27/20 07:14 36.3 C L 68 16 121/63 96 04/27/20 05:20 36.8 C 75 18 126/61 95 04/26/20 23:12 36.7 C 60 18 127/62 95 Laboratory Results 04/26/20 08:15 04/27/20 05:58
[2020-04-27] MEDS ORDERED: PANTOprazole 40 MG TAB PO SCH (09:00)
[2020-04-27] MEDS: NORMOSOL-R 1,000 ML IV SCH (09:44)
[2020-04-27] MEDS ORDERED: MAGNESIUM OXIDE 400 MG TAB PO SCH (09:45)
[2020-04-27] MEDS ORDERED: POTASSIUM CHLORIDE 20 MEQ/15 ML UDC PO ONE (09:45)
--- NOTE | 2020-04-27 10:45 | Surgery Progress Note ---
Date of Service April 27, 2020 Assessment & Plan (1) SBO (small bowel obstruction): Patient here with SBO She is progressing well; denies abdominal pain, n/v; having + bowel function Yesterday she was started on clears of which she has tolerated Will advance to full liquids and then low fiber today as tolerates If she tolerates low fiber okay for discharge to home today from our standpoint Pt seen and examined with Dr. Peralta Admission and Anticipated Discharge Date Admission Date: April 23, 2020 Supervising Physician Co-Signing Physician Notes Pnt s&e, agree with above. Resolving SBO, december d/c if tolerating diet. low fiber diet for 3-4 weeks. Subjective Patient states she is feeling well. Has been tolerating a liquid diet. Denies abdominal symptoms. Continues to have bowel function. Physical Exam Physical Exam: awake/alert, sitting up in chair Gastrointestinal (Abdomen): Percussion/Palpation: abdomen soft Results & Data ([facility]) Vital Signs (Past 12 Hours) Vital Signs Temp Pulse Resp BP Pulse Ox 04/27/20 07:14 36.3 C L 68 16 121/63 96 04/27/20 05:20 36.8 C 75 18 126/61 95 04/26/20 23:12 36.7 C 60 18 127/62 95 PG Care Time/CCT Total # of Minutes Spent Total Time Spent with Patient: Total time spent is greater than 50% in coordination of care (as documented) at patient's floor/unit and/or counseling patient: Coding Level of Care Code 31133 Subseq Hosp Care Lvl 1 Diagnoses SBO (small bowel obstruction) K56.609
[2020-04-27] MEDS ORDERED: LOPERAMIDE HCL 2 MG CAP PO PRN (11:55)
[2020-04-27] MEDS ORDERED: LACTOBACILLUS ACIDOPHILUS (FLORANEX) TAB PO SCH (12:00)
--- NOTE | 2020-04-27 13:09 | Hospitalist Progress Note ---
Date of Service April 27, 2020 Assessment & Plan (1) SBO (small bowel obstruction): Small Bowel Obstruction --CT ABD:Findings consistent with a moderate to high-grade small bowel obstruction with transition point within the left lower quadrant. Minimal associated mesenteric infiltration. No free air, pneumatosis or portal venous gas. Cholelithiasis. No evidence for acute cholecystitis. Emphysema. Mild ground glass opacities within the left lower lobe which favor an infectious process. --Resolved with conservative management --Received IV fluids --NG tube discontinued --Appreciate Surgery Input --Tolerated low fiber diet (2) Elevated lactic acid level: Elevated lactic acid Likely due to above R/O Bacteremia: ? Contamination 09/03 Blood Cx from 04/22: Gram Negative Bacilli Repeat Blood Cx:04/26/: No growth to date Received Zosyn for 4 days Plan to transition to Augmentin until final culture results result Advised patient to follow up with final cultures--Agrees with plan (3) Acute renal failure: Likely multifactorial Perianal, nonoliguric Also likely early ATN Pseudomembranes Appreciate nephrology input Needs follow-up with nephrology in 2 weeks upon discharge Plan to get basic metabolic panel on April 28 and May 02 as recommended by Nephrology Avoid NSAIDs CODE STATUS: Full code DVT Px: SCD Disposition: Plan to discharge home today Admission and Anticipated Discharge Date Admission Date: April 23, 2020 Subjective Patient is seen and examined at bedside Had bowel movement today Tolerated low fiber diet Denies chest pain, shortness of breath, dizziness, nausea, abdominal pain Stool for C. difficile is negative Eager to get discharged Offers no other complaints Review of Systems Review of Systems: All systems reviewed & are unremarkable except as noted in HPI & below Physical Exam Physical Exam: Physical Exam: Vitals signs as noted above General Appearance:Thin, frail, no apparent distress Head: normocephalic, Atraumatic Eyes: normal inspection, EOMI Neck: supple, Trachea midline Respiratory/Chest: Decreased breath sounds, CTA Cardiovascular: S1, S2, No murmur Abdomen/GI:Soft, Non tender, Bowel sounds present Extremities/Musculoskelatal:normal inspection, no edema Neurologic/Psych:AAOX3, grossly no focal neurological deficits Skin: normal color, warm Results & Data Results & Data ([facility]) Vital Signs (Past 12 Hours) Vital Signs Temp Pulse Resp BP BP Pulse Ox 04/27/20 11:27 36.6 C 73 16 134/74 97 04/27/20 07:14 36.3 C L 68 16 121/63 96 04/27/20 05:20 36.8 C 75 18 126/[address] [facility] 04/26/20 04/27/20 16:59 05:58 Sodium 144 142 Potassium 3.8 3.4 L Chloride 109 H 107 Carbon Dioxide 30 32 BUN 17 12 Creatinine 1.28 H D 0.98 D Glucose 188 H 101 H Calcium 9.7 9.0
--- NOTE | 2020-04-27 13:48 | Discharge Summary ---
Date of Service April 27, 2020 Admission HPI Per Admitting Provider CHIEF COMPLAINT: Abdominal pain, nausea and vomiting. HISTORY OF PRESENT ILLNESS: This is a 70-year-old female with past medical history significant for hyperlipidemia, COPD, congenital deviation of nasal septum, abdominal aortic aneurysm, GERD, osteoporosis, fibromyalgia, polyarticular osteoarthritis, migraine variant, parotid mass, who lives with her . Ambulates okay, comes because of nausea and vomiting, going on for last 3 days. She says she vomited several times. Did not eat anything for the last 3 days except for liquids.Thought it could be a GI bug, but it got worse and came to the ER today and she was tachycardic and blood pressure was in 80s when she came in and generalized abdominal tenderness and her labs showed sodium of 131, potassium 2.9 with creatinine of 4.95. Lactate of 6.5. Procalcitonin of 5.33 and CAT scan of the abdomen and pelvis shows small-bowel obstruction. Received fluids and IV antibiotics. Repeat lactic acid, it was 3.8. Surgery was notified and planned to take over if the lactic acid continues to increase, but it has been decreased to 3.8. Plan for NG tube. Currently, the patient is hemodynamically stable. Blood pressure improved to 110s. The patient is afebrile, has cough he says for long time. Denies any loss of sense of smell or taste. No headache, no blurred vision, no earache, no runny nose. She has some sore throat, from attempt to place NG tube. Denies any chest pain, no shortness of breath. She says she has small bowel movement yesterday, was micturating okay at home. Was ambulating okay. No rash seen. Admission Exam Per Admitting Provider PHYSICAL EXAMINATION: GENERAL: The patient is weak and frail, not in acute distress. VITAL SIGNS: Temperature 36.9, pulse 90, respiratory rate 18, blood pressure 118/59 and oxygen 99% on 2 liters. HEENT: Pupils equal, round, reactive to light. NECK: No JVD, supple. CARDIOVASCULAR: S1, S2 heard, regular rate and rhythm, no murmur, no gallop. RESPIRATORY SYSTEM: Normal AP diameter. No accessory muscle use. No wheezing, no crackles. ABDOMEN: Soft, absent bowel sounds. Diffuse tenderness. No guarding. Mild rigidity. No distention seen. CENTRAL NERVOUS SYSTEM: Cranial nerves II-XII grossly intact, nonfocal. EXTREMITIES: No edema, no erythema. Principal Diagnosis Small bowel obstruction Acute kidney injury Possible bacteremia Discharge Data Allergies Allergy/AdvReac Type Severity Reaction Status Date / Time No Known Allergies Allergy Unverified 04/22/20 23:40 Consultations 04/22/20 23:14 ED Decision to Admit Stat 04/23/20 03:11 Consult Case Management - Discharge Planning Routine 04/23/20 07:00 Consult General Surgery Routine 04/23/20 18:03 Consult Nephrology Routine Procedures Performed CT ABD:Findings consistent with a moderate to high-grade small bowel obstruction with transition point within the left lower quadrant. Minimal associated mesenteric infiltration. No free air, pneumatosis or portal venous gas. Cholelithiasis. No evidence for acute cholecystitis. Emphysema. Mild ground glass opacities within the left lower lobe which favor an infectious process. Ordered Studies 04/22/20 21:15 CT abd pelvis wo con Urgent 04/25/20 23:44 CT head/brain wo con Urgent Hospital Course (1) SBO (small bowel obstruction): Small Bowel Obstruction --CT ABD:Findings consistent with a moderate to high-grade small bowel obstruction with transition point within the left lower quadrant. Minimal associated mesenteric infiltration. No free air, pneumatosis or portal venous gas. Cholelithiasis. No evidence for acute cholecystitis. Emphysema. Mild ground glass opacities within the left lower lobe which favor an infectious process. --Resolved with conservative management --Received IV fluids --NG tube discontinued --Appreciate Surgery Input --Tolerated low fiber diet (2) Elevated lactic acid level: Elevated lactic acid Likely due to above R/O Bacteremia: ? Contamination / Blood Cx from 04/22: Gram Negative Bacilli Repeat Blood Cx:04/26/: No growth to date Received Zosyn for 4 days Plan to transition to Augmentin until final culture results result Advised patient to follow up with final cultures--Agrees with plan (3) Acute renal failure: Likely multifactorial Perianal, nonoliguric Also likely early ATN Pseudomembranes Appreciate nephrology input Needs follow-up with nephrology in 2 weeks upon discharge Plan to get basic metabolic panel on April 28 and May 02 as recommended by Nephrology Avoid NSAIDs CODE STATUS: Full code DVT Px: SCD Disposition: Plan to discharge home today Total Time Total Time Spent Total Time Spent (In Minutes): 43 minutes Discharge Plan Discharge Items Patient Disposition: Home - Self-Care Reason For Visit: ILLNESS Discharge Diagnosis: Small bowel obstruction Acute kidney injury Possible bacteremia Activity: Resume your previous activity Exercise/Sports: Gradually increase as tolerated Non-emergency contact: Primary Care Provider and Surgeon Call non-emergency contact if: you have any medication questions, your symptoms worsen, your pain is not controlled, your pain is worsening, your pain is unusual for you and you have a fever Follow-up/Referrals: Dorota Nogueira MD, PhD [Physician] - 05/11/20 12:00 pm Nick Stearns DO [Primary Care Provider] - 05/02/20 11:20 am (Date & Time 05/02/2020 11:20 AM Provider Nick Stearns DO Department General Internal Medicine [facility] ) Diet: Low Fiber Ambulatory Orders: Basic Metabolic Panel (Routine) Timeframe: 20200502 Location: Determined by Patient Ordered By: Woody Amezcua Basic Metabolic Panel (Routine) Timeframe: 20200428 Location: Determined by Patient Ordered By: Woody Amezcua Add Attending Provider Instructions: Follow-up with your primary care physician Dr. Stearns on May 02, 2020 at 11:20 AM as scheduled Follow-up with your manufacturing finance manager Dr. Nogueira on May 11, 2020 at 12: 00 Noon as scheduled Follow-up with your surgeon Dr. Peralta as needed Get Blood Test (Basic Metabolic Panel) on 04/28/20 and on 05/02/20 and follow up with your Embossing Press Operator with results. Continue Antibiotic Augmentin 500mg Twice a day as prescribed. Duration of antibiotic course to be determined by final blood culture results. Your blood cultures are pending at the time of discharge. Follow-up with your physician for results as advised. If your blood cultures are negative, you can discontinue the antibiotics as advised. Seek immediate medical attention if your symptoms reoccur or worsen Continue low fiber diet as advised further recommendations as per your primary care physician. Avoid Taking nonsteroidal anti-inflammatory drugs like Advil , Aleve, Motrin , Ibuprofen , high dose aspirin, Naproxen etc for pain as they can cause further worsening of you kidney function Seek immediate medical attention if your symptoms reoccur or worsen Pending Studies at Discharge: Yes Studies:: Blood Cultures Stand-Alone Forms: My [facility], Smoking Cessation Medications and DC Order Prescriptions: New amoxicillin-pot clavulanate [Augmentin] 500-125 mg tablet 1 tab PO BID Qty: 20 RF: 0 Lactobacillus acidoph-L.bulgar [Floranex] 1 million cell Tablet 4 tab PO QIDM 10 Days Qty: 40 RF: 0 Continued alendronate 70 mg tablet 70 mg PO WK RF: 0 carisoprodol 350 mg tablet 350 mg PO TID PRN (Reason: Muscle Spasm) RF: 0 atorvastatin 10 mg tablet 10 mg PO DAILY RF: 0 hydrocodone-acetaminophen 5-325 mg tablet 1 tab PO TID PRN (Reason: Pain) RF: 0 omeprazole 20 mg capsule,delayed release(DR/EC) 40 mg PO QAM RF: 0 zolpidem 10 mg tablet 10 mg PO HS RF: 0 blprpupzbe-yucjoohwes-got-cod [id number] mg capsule 1 cap PO Q4 PRN (Reason: Migraine Headache) RF: 0 Calcium 600 + D(3) 600 mg calcium- 200 unit Capsule 1 cap PO BID RF: 0 cholecalciferol (vitamin D3) [Vitamin D3] 25 mcg (1,000 unit) Tablet 25 mcg PO DAILY RF: 0 Cristopher Multi for Women 13.5-200-250 mg-mcg-mcg Tablet 1 tab PO DAILY RF: 0 albuterol sulfate 2.5 mg /3 mL (0.083 %) Solution For Nebulization 2.5 mg INHALATION Q4 PRN (Reason: Wheezing) RF: 0 albuterol sulfate 90 mcg/actuation Hfa Aerosol Inhaler 1 puff INHALATION QID PRN (Reason: Wheezing) RF: 0 Discharge Orders: Discharge Order (Routine); Ordered 04/27/20 Ordered By: Woody Zelaya/Other Patient Handouts: Low-Fiber Diet Admission Data Admit Date/Time: 04/23/20 00:20 Attending Provider: Woody Amezcua Admit Provider: Hima Scott Primary Care Provider: Nick Stearns Other Providers: Hima Scott ; Justice Peralta ; Dorota Nogueira ; Levar Juárez ; Yenny Barton ; Adrianna Majano,Japheth E. Other Interventions: Discharge Summary Assessment (RN) Last Done: 04/27/20 14:17
== END 2020-04-27 14:49 | disposition home or self-care (01) | DRG 388 ==
LOC: ED 20:18 → SUATTDRO 04-23 00:20 → 1E 04-23 00:20 → 2W 04-24 11:24

== ENCOUNTER 2022-01-08 17:27 | Inpatient (IN) ==
--- NOTE | 2022-01-08 18:02 | XRay Report ---
XR chest 1V portable HISTORY: Cough. Shortness of breath. Pneumonia COMPARISON: Chest 04/22/2020. FINDINGS: No pneumothorax. No pleural fusions. The lungs are hyperexpanded with apical predominant em physematous changes. The upper lung zones are clear. Hazy left basilar airspace opacities are noted. The heart is normal in size. No evidence for pulmonary edema. IMPRESSION: 1. Hazy left basilar airspace opacities likely representing a pneumonia. This could be due to viral p rocess. 2. Emphysema. ACT 112: Negative or not required by law. Electronically signed by: Freddie Gambino M.D. 01/08/2022 6:00 PM
[2022-01-08 18:23] LABS: Basophils # (auto) 0.03 K/uL (0-0.2); Basophils % (auto) 0.2 %; Eosinophils # (auto) 0.07 K/uL (0-0.5); Eosinophils % (auto) 0.5 %; Hematocrit (blood only) 39.5 % (37-47); Hemoglobin 13.4 g/dL (12.0-16.0); Immature Granulocytes # (auto) 0.04 K/uL (0.00-0.02); Immature Granulocytes % (auto) 0.3 %; Lymphocytes # (auto) 1.83 K/uL (1.2-3.4); Lymphocytes % (auto) 13.1 %; Mean Corpuscular Hemoglobin 31.8 pg (25-34); Mean Corpuscular Hgb Conc 33.9 g/dL (32-36); Mean Corpuscular Volume 93.8 fL (80-100); Mean Platelet Volume 9.9 fL (7.4-10.4); Monocytes # (auto) 1.45 K/uL (0.11-0.59); Monocytes % (auto) 10.4 %; Neutrophils # (auto) 10.54 K/uL (1.4-6.5); Neutrophils % (auto) 75.5 %; Platelet Count 393 K/uL (130-400); RDW Coefficient of Variation 13.4 % (11.5-14.5); RDW Standard Deviation 46.2 fL (36.4-46.3); Red Blood Count 4.21 M/uL (4.2-5.4); White Blood Count 13.96 K/uL (4.8-10.8)
[2022-01-08] MEDS ORDERED: SODIUM CHLORIDE 0.9% 1000ML 1,000 ML IV SCH (18:30)
[2022-01-08 18:44] LABS: Albumin Globulin Ratio 1.1 (0.9-2); BUN Creatinine Ratio 13.6 (10-20); Bilirubin,Total 0.5 mg/dl (0.2-1.0); Calcium 9.5 mg/dl (8.5-10.1); Creatinine Clr Calc Pharmacy 46.8 ml/min; Est GFR (Non-African American) 88.9 ml/min; Globulin 3.8 gm/dl (2.5-4.0); Potassium 2.9 mmol/L (3.5-5.1); Total Protein 7.8 gm/dl (6.0-8.3)
[2022-01-08 19:16] LABS: Influenza A virus by PCR Negative (Neg); Influenza B virus by PCR Negative (Neg); RSV by PCR Negative (Neg); SARS CoV2 RNA(COVID-19) InHosp NEGATIVE (Negative)
[2022-01-08] MEDS ORDERED: POTASSIUM CHLORIDE CRTAB 20 MEQ TABCR PO STA (19:21)
[2022-01-08] MEDS ORDERED: levoFLOXacin/D5W 750 MG/150 ML BAG IV STA (19:22)
--- NOTE | 2022-01-08 19:25 | Emergency Department Note ---
History of Present Illness General Chief complaint: Shortness of Breath/Dyspnea Stated complaint: SOB, R SIDE RIB PAIN, DR RADHA Time Seen by Provider: 01/08/22 18:16 Source: patient Mode of arrival: ambulatory Limitations: no limitations History of Present Illness Provider complaint: Pneumonia Onset (ago): week(s) 2 Maximum Pain Intensity: 10 This is a 71-year-old female presents emergency department after being referred by her PCP due to concern for failed outpatient treatment of her pneumonia. Patient states she had cough, right-sided chest pain, and fatigue and presented to her PCPs office. They performed an outpatient chest x-ray and she was told she had bilateral pneumonia. Patient states she was started on Augmentin and prednisone and completed a 7-day course of each. Patient states she followed up at her PCPs office again, not feeling significantly improved. She states another chest x-ray was performed and she was told that the pneumonia was still present and she was referred to the emergency room for IV antibiotics and admission. Patient states she does have a history of COPD. Does not use home oxygen. She does have an MDI, and is supposed to use nebulizer treatments but does not. Patient states she has not had any appetite and has felt fatigued and weak over the course of the last week. Patient states she does not drink water, only sweet tea. She denies vomiting or diarrhea. Denies any leg swelling. Denies any history of heart problems. Pt seen during a time of high acuity and national emergency pandemic while wearing PPE. Home Medications Medication Instructions Recorded Confirmed Type albuterol sulfate 2.5 mg INHALATION Q4 PRN 04/22/20 01/08/22 History albuterol sulfate 90 mcg/actuation 1 puff INHALATION QID PRN 04/22/20 01/08/22 History aerosol inhaler alendronate 70 mg tablet 70 mg PO WK 04/22/20 01/08/22 History atorvastatin 10 mg tablet 10 mg PO HS 04/22/20 01/08/22 History butalbital 50 mg-acetaminophen 325 1 cap PO Q4 PRN 04/22/20 01/08/22 History mg-caffeine 40 mg-codeine 30 mg cap calcium carbonate 600 mg-vitamin 1 cap PO BID 04/22/20 01/08/22 History D3 5 mcg (200 unit) capsule (Calcium 600 + D(3)) carisoprodol 350 mg tablet 350 mg PO TID PRN 04/22/20 01/08/22 History cholecalciferol (vitamin D3) 25 25 mcg PO DAILY 04/22/20 01/08/22 History mcg (1,000 unit) tablet (Vitamin D3) hydrocodone 5 mg-acetaminophen 325 1 tab PO TID PRN 04/22/20 01/08/22 History mg tablet multivit,[id number] 1 tab PO DAILY 04/22/20 01/08/22 History 13.5 mg-200 mcg-250 mcg tablet ([facility]) omeprazole 20 mg capsule,delayed 20 mg PO QAM 04/22/20 01/08/22 History release zolpidem 10 mg tablet 10 mg PO HS 04/22/20 01/08/22 History Allergies Allergy/AdvReac Type Severity Reaction Status Date / Time sumatriptan [From Imitrex] Allergy Severe stopped Verified 01/08/22 21:33 breathing as per px Past Med/Surg History Medical History COPD (chronic obstructive pulmonary disease) Fibromyalgia Hematuria Hyperlipidemia Lumbar disc disease Migraine Osteoporosis Tobacco use Social History Smoking Status: Current every day smoker Tobacco Type: Cigarettes Cigarettes Per Day: 8; Second Hand Exposure: Yes; Do You Dip or Chew Tobacco: No; Hx Alcohol Use: No Hx Substance Use: No Preferred Language: Uzbek 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 Ability: Effective Shear Helper Required: No Beliefs That Will Affect Care: None marital status: Current Living Situation: Spouse Current Living Situation Comment: Lives with and son Other Information That Helps Us Care for You: No Feels Safe at Home: Yes Safety Concerns: Feels Safe At This Time Assistive Devices: None Review of Systems A total of 10 systems reviewed and were otherwise negative All systems reviewed & are unremarkable except as noted in HPI & below Physical Exam Vital Signs Vital Signs - 24 hr 01/08/22 17:35 01/08/22 18:10 01/08/22 18:14 Temperature 36.9 C Temperature Source Temporal Artery Scan Pulse Rate 109 H 105 H Pulse Rate [Apical] 104 H Pulse Rhythm Regular Pulse Rhythm [Apical] Regular Pulse Strength [Apical] Normal Respiratory Rate 20 24 Respiratory Effort / Characteristics Non-Labored Non-Labored Spontaneous Short of Breath Respiratory Depth Normal Normal Respiratory Pattern Regular Regular Blood Pressure 126/74 Blood Pressure [Right Arm] 122/72 Blood Pressure Mean 91 Blood Pressure Mean [Right Arm] 88 Blood Pressure Position [Right Arm] Semi-fowlers Pulse Oximetry 95 93 93 Oxygen Delivery Method Room Air Room Air Nasal Cannula Oxygen Flow Rate 0 Sepsis Recent Fever Within 48 Hours No Sepsis New/Unexplained Change in Mental Status No Sepsis Action Taken by Nursing No Action Required Oxygen Flow Rate - Titration 2 Pulse Oximetry Post Tiitration 97 GENERAL: alert, well appearing, well nourished, no distress, non-toxic EYE EXAM: normal conjunctiva, PERRL and EOM's grossly intact OROPHARYNX: no exudate, no erythema, lips, buccal mucosa, and tongue normal and mucous membranes are moist NECK: supple, no nuchal rigidity, no adenopathy, non-tender LUNGS: Decreased to auscultation. Normal chest wall mechanics, no w/r/r, coarse cough noted during exam, no tachypnea, no retractions HEART: no murmurs, S1 normal and S2 normal ABDOMEN: abdomen soft, non-tender, normo-active bowel sounds, no masses, no rebound or guarding. BACK: Back is symmetrical on inspection and there is no deformity, no midline tenderness, no CVA tenderness. SKIN: no rashes and no bruising UPPER EXTREMITIES: upper extremities are grossly normal. FROM, nml pulses b/l. LOWER EXTREMITIES: No pitting edema. FROM, nml pulses b/l. NEURO EXAM: Normal sensorium, cranial nerves II-XII grossly intact, normal speech, no gross weakness of arms, no gross weakness of legs. Gross sensation intact. Course Administered Medications Hydrocodone Bitart/Acetaminophen (Hydrocodone/Acetamophen 5/325mg Tab) 1 tab PO TID PRN PRN Reason: Pain Stop: 01/22/22 22:22 Last Admin: 01/09/22 21:08 Dose: 1 tab Documented by: [id number] Admin: 01/09/22 15:06 Dose: 1 tab Documented by: [id number] Admin: 01/09/22 08:57 Dose: 1 tab Documented by: [id number] Atorvastatin Calcium (Atorvastatin 10 Mg Tab) 10 mg PO HS MONIQUE Stop: 02/07/22 22:22 Last Admin: 01/09/22 20:10 Dose: 10 mg Documented by: [id number] Admin: 05/09/22 23:52 Dose: 10 mg Documented by: [id number] Doxycycline Hyclate (Doxycycline Hyclate 100 Mg Cap) 100 mg PO BID [facility] Stop: 01/16/22 20:59 Last Admin: 01/09/22 20:10 Dose: 100 mg Documented by: [id number] Fluticasone/Vilanterol (Fluticasone/Vilanterol 100/25mcg 14 Puffs/Inhaler) 1 puffs INH DAILY MONIQUE Stop: 02/08/22 11:59 Last Admin: 01/09/22 12:03 Dose: 1 puffs Documented by: [id number] Heparin Sodium (Porcine) (Heparin Sod 5,000 Unit/0.5 Ml Vial) 5,000 units SQ Q8 [facility] Stop: 02/07/22 22:22 Last Admin: 01/09/22 21:08 Dose: 5,000 units Documented by: [id number] Admin: 01/09/22 15:08 Dose: 5,000 units Documented by: [id number] Admin: 01/09/22 04:53 Dose: Not Given Documented by: [id number] Admin: 01/08/22 23:53 Dose: 5,000 units Documented by: [id number] Cefepime HCl 2,000 mg/ Syringe 20 mls @ 5 mls/min IV Q12H [facility]; Protocol Stop: 01/16/22 15:29 Last Admin: 01/09/22 16:22 Dose: 5 mls/min Documented by: [id number] Ipratropium Phoenix (Ipratropium Phoenix Neb Soln 0.02% 2.5 Ml Vial) 0.5 mg INH Q6R [facility] Stop: 02/08/22 00:59 Last Admin: 01/10/22 00:02 Dose: Not Given Documented by: [id number] Admin: 01/09/22 19:36 Dose: 0.5 mg Documented by: [id number] Admin: 01/09/22 12:53 Dose: 0.5 mg Documented by: [id number] Admin: 01/09/22 07:12 Dose: 0.5 mg Documented by: [id number] Admin: 01/09/22 00:04 Dose: Not Given Documented by: [id number] Levalbuterol HCl (Levalbuterol 1.25mg/0.5ml Neb) 1.25 mg INH Q6R MONIQUE Stop: 02/08/22 00:59 Last Admin: 01/10/22 00:02 Dose: Not Given Documented by: [id number] Admin: 01/09/22 19:36 Dose: 1.25 mg Documented by: [id number] Admin: 01/09/22 12:53 Dose: Not Given Documented by: [id number] Admin: 01/09/22 07:13 Dose: Not Given Documented by: [id number] Admin: 01/09/22 00:04 Dose: Not Given Documented by: [id number] Multivitamins/Minerals (Cerovite Adv Formula Tab) 1 tab PO DAILY [facility] Stop: 02/08/22 08:59 Last Admin: 01/09/22 08:17 Dose: 1 tab Documented by: [id number] Pantoprazole Sodium (Pantoprazole 40 Mg Tab) 40 mg PO QAM [facility] Stop: 02/08/22 08:59 Last Admin: 01/09/22 08:17 Dose: 40 mg Documented by: [id number] Prednisone (Prednisone 20 Mg Tab) 20 mg PO DAILY [facility] Stop: 01/13/22 08:59 Last Admin: 01/09/22 08:17 Dose: 20 mg Documented by: [id number] Umeclidinium Phoenix (Umeclidinium Phoenix 62.5mcg/Blister 7 Puffs/Inhaler) 1 puffs INH QAM [facility] Stop: 02/08/22 11:59 Last Admin: 01/09/22 12:03 Dose: 1 puffs Documented by: [id number] Zolpidem Tartrate (Zolpidem Tartrate 10 Mg Tab) 10 mg PO HS PRN PRN Reason: Insomnia Stop: 02/07/22 22:22 Last Admin: 01/09/22 23:29 Dose: 10 mg Documented by: [id number] Admin: 01/08/22 23:52 Dose: 10 mg Documented by: [id number] Discontinued Medications Albuterol (Albut/Ipratrop 3mg/0.5mg Neb 3 Ml Vial) Confirm Administered Dose 3 ml .ROUTE .STK-MED ONE Stop: 01/08/22 23:42 Last Admin: 01/09/22 00:02 Dose: Not Given Documented by: [id number] Albuterol (Albut/Ipratrop 3mg/0.5mg Neb 3 Ml Vial) Confirm Administered Dose 3 ml .ROUTE .STK-MED ONE Stop: 01/08/22 23:58 Last Admin: 01/09/22 00:01 Dose: 3 ml Documented by: [id number] Sodium Chloride (Nss 1000ml) 1,000 mls @ 125 mls/hr IV .Q8H MONIQUE Stop: 02/07/22 18:29 Last Infusion: 01/08/22 23:39 Dose: 0 mls/hr Documented by: [id number] Infusion: 01/08/22 21:41 Dose: 0 mls/hr Documented by: [id number] Admin: 01/08/22 18:48 Dose: 125 mls/hr Documented by: [id number] Levofloxacin/Dextrose (Levaquin/D5w) 750 mg in 150 mls @ 100 mls/hr IV NOW STA Stop: 01/08/22 20:51 Last Infusion: 01/08/22 21:40 Dose: 0 mls/hr Documented by: [id number] Admin: 01/08/22 19:32 Dose: 100 mls/hr Documented by: [id number] Magnesium Sulfate/Dextrose (Magnesium Sulfate / D5w) 1 gm in 100 mls @ 50 mls/hr IV ONE ONE Stop: 01/08/22 21:51 Last Infusion: 01/09/22 00:50 Dose: 0 mls/hr Documented by: [id number] Admin: 01/08/22 22:41 Dose: 50 mls/hr Documented by: [id number] Lactated Ringer's (Lr) 1,000 mls @ 80 mls/hr IV .[id number] ONE Stop: 01/09/22 08:23 Last Infusion: 01/09/22 08:47 Dose: 0 mls/hr Documented by: [id number] Admin: 01/08/22 22:41 Dose: 80 mls/hr Documented by: [id number] Methylprednisolone 20 mg/ (Syringe) 0.32 mls @ 1.5 mls/min IV NOW STA Stop: 01/08/22 20:54 Last Admin: 01/08/22 21:46 Dose: 1.5 mls/min Documented by: [id number] Ioversol (Optiray 320 125ml) 120 ml IV ONCE ONE Stop: 01/08/22 22:03 Last Admin: 01/08/22 22:02 Dose: 120 ml Documented by: [id number] Levalbuterol HCl (Levalbuterol Hcl 1.25 Mg/3 Ml Neb) Confirm Administered Dose 1.25 mg .ROUTE .STK-MED ONE Stop: 01/09/22 06:57 Last Admin: 01/09/22 07:12 Dose: 1.25 mg Documented by: [id number] Levalbuterol HCl (Levalbuterol Hcl 1.25 Mg/3 Ml Neb) Confirm Administered Dose 1.25 mg .ROUTE .STK-MED ONE Stop: 01/09/22 12:52 Last Admin: 01/09/22 12:53 Dose: 1.25 mg Documented by: [id number] Methylprednisolone (Methylprednisolone 40 Mg/Ml Vial) Confirm Administered Dose 40 mg .ROUTE .STK-MED ONE Stop: 01/08/22 21:44 Last Admin: 01/08/22 22:01 Dose: Not Given Documented by: [id number] Potassium Chloride (Potassium Chloride Crtab 20 Meq Tabcr) 40 meq PO NOW STA Stop: 01/08/22 19:22 Last Admin: 01/08/22 19:31 Dose: 40 meq Documented by: [id number] Potassium Chloride (Potassium Chloride Crtab 20 Meq Tabcr) 40 meq PO ONE ONE Stop: 01/08/22 21:01 Last Admin: 01/09/22 01:24 Dose: 40 meq Documented by: [id number] Medical Decision Making Differential Diagnosis Differential diagnoses includes but is not limited to pneumonia, bronchitis, COPD/Asthma exacerbation, pneumothorax, pulmonary embolism, congestive heart failure, acute coronary syndrome Medical Records Attestation: I reviewed the patient's medical records. Home Medications Current Medication List: was personally reviewed by me Laboratory Data Attestation: I reviewed the patient's lab results. Result diagrams: 01/09/22 06:08 01/09/22 06:08 Lab Results 01/08/22 01/08/22 01/08/22 Range/Units 18:00 18:00 18:00 WBC 13.96 H (4.8-10.8) K/uL RBC 4.21 (4.2-5.4) M/uL Hgb 13.4 (12.0-16.0) g/dL Hct 39.5 (37-47) % MCV 93.8 (80-100) fL MCH 31.8 (25-34) pg MCHC 33.9 (32-36) g/dL RDW Std Deviation 46.2 (36.4-46.3) fL RDW Coeff of Nakul 13.4 (11.5-14.5) % Plt Count 393 (130-400) K/uL MPV 9.9 (7.4-10.4) fL Immature Gran % (Auto) 0.3 % Neut % (Auto) 75.5 % Lymph % (Auto) 13.1 % [place] % (Auto) 10.4 % Eos % (Auto) 0.5 % Baso % (Auto) 0.2 % Neut # (Auto) 10.54 H (1.4-6.5) K/uL Lymph # (Auto) 1.83 (1.2-3.4) K/uL [place] # (Auto) 1.45 H (0.11-0.59) K/uL Eos # (Auto) 0.07 (0-0.5) K/uL Baso # (Auto) 0.03 (0-0.2) K/uL Immature Gran # (Auto) 0.04 H (0.00-0.02) K/uL APTT (21.0-31.0) Seconds PTT Ratio Sodium 134 L (136-145) mmol/L Potassium 2.9 L (3.5-5.1) mmol/L Chloride 94 L (98-107) mmol/L Carbon Dioxide 31 (21-32) mmol/L Anion Gap 9 (3-11) BUN 9 (6-23) mg/dl Creatinine 0.66 (0.6-1.2) mg/dl Est Cr Clr Drug Dosing 46.8 ml/min Est GFR ( Amer) 103.0 ml/min Est GFR (Non-Af Amer) 88.9 ml/min BUN/Creatinine Ratio 13.6 (10-20) Glucose 123 H (70-99(Fasting)) mg/dl Estimat Average Glucose mg/dl Hemoglobin A1c (4.5-5.6) % Calcium 9.5 (8.5-10.1) mg/dl Magnesium (1.7-2.4) mg/dl Total Bilirubin 0.5 (0.2-1.0) mg/dl AST 21 (13-39) U/L ALT 18 (7-52) U/L Alkaline Phosphatase 103 (34-104) U/L Troponin I High Sens 10.0 (0-14) pg/ml Total Protein 7.8 (6.0-8.3) gm/dl Albumin 4.0 (3.4-5.0) gm/dl Globulin 3.8 (2.5-4.0) gm/dl Albumin/Globulin Ratio 1.1 (0.9-2) SARS-CoV-2 (PCR) (Negative) Influenza Type A (PCR) (Neg) Influenza Type B (PCR) (Neg) RSV (RT-PCR) (Neg) 01/08/22 01/08/22 01/08/22 Range/Units 18:00 18:00 18:10 WBC (4.8-10.8) K/uL RBC (4.2-5.4) M/uL Hgb (12.0-16.0) g/dL Hct (37-47) % MCV (80-100) fL MCH (25-34) pg MCHC (32-36) g/dL RDW Std Deviation (36.4-46.3) fL RDW Coeff of Nakul (11.5-14.5) % Plt Count (130-400) K/uL MPV (7.4-10.4) fL Immature Gran % (Auto) % Neut % (Auto) % Lymph % (Auto) % [place] % (Auto) % Eos % (Auto) % Baso % (Auto) % Neut # (Auto) (1.4-6.5) K/uL Lymph # (Auto) (1.2-3.4) K/uL [place] # (Auto) (0.11-0.59) K/uL Eos # (Auto) (0-0.5) K/uL Baso # (Auto) (0-0.2) K/uL Immature Gran # (Auto) (0.00-0.02) K/uL APTT 27.9 (21.0-31.0) Seconds PTT Ratio 1.0 Sodium (136-145) mmol/L Potassium (3.5-5.1) mmol/L Chloride (98-107) mmol/L Carbon Dioxide (21-32) mmol/L Anion Gap (3-11) BUN (6-23) mg/dl Creatinine (0.6-1.2) mg/dl Est Cr Clr Drug Dosing ml/min Est GFR ( Amer) ml/min Est GFR (Non-Af Amer) ml/min BUN/Creatinine Ratio (10-20) Glucose (70-99(Fasting)) mg/dl Estimat Average Glucose mg/dl Hemoglobin A1c (4.5-5.6) % Calcium (8.5-10.1) mg/dl Magnesium 1.9 (1.7-2.4) mg/dl Total Bilirubin (0.2-1.0) mg/dl AST (13-39) U/L ALT (7-52) U/L Alkaline Phosphatase (34-104) U/L Troponin I High Sens (0-14) pg/ml Total Protein (6.0-8.3) gm/dl Albumin (3.4-5.0) gm/dl Globulin (2.5-4.0) gm/dl Albumin/Globulin Ratio (0.9-2) SARS-CoV-2 (PCR) NEGATIVE (Negative) Influenza Type A (PCR) Negative (Neg) Influenza Type B (PCR) Negative (Neg) RSV (RT-PCR) Negative (Neg) 01/08/22 Range/Units 20:05 WBC (4.8-10.8) K/uL RBC (4.2-5.4) M/uL Hgb (12.0-16.0) g/dL Hct (37-47) % MCV (80-100) fL MCH (25-34) pg MCHC (32-36) g/dL RDW Std Deviation (36.4-46.3) fL RDW Coeff of Nakul (11.5-14.5) % Plt Count (130-400) K/uL MPV (7.4-10.4) fL Immature Gran % (Auto) % Neut % (Auto) % Lymph % (Auto) % [place] % (Auto) % Eos % (Auto) % Baso % (Auto) % Neut # (Auto) (1.4-6.5) K/uL Lymph # (Auto) (1.2-3.4) K/uL [place] # (Auto) (0.11-0.59) K/uL Eos # (Auto) (0-0.5) K/uL Baso # (Auto) (0-0.2) K/uL Immature Gran # (Auto) (0.00-0.02) K/uL APTT (21.0-31.0) Seconds PTT Ratio Sodium (136-145) mmol/L Potassium (3.5-5.1) mmol/L Chloride (98-107) mmol/L Carbon Dioxide (21-32) mmol/L Anion Gap (3-11) BUN (6-23) mg/dl Creatinine (0.6-1.2) mg/dl Est Cr Clr Drug Dosing ml/min Est GFR ( Amer) ml/min Est GFR (Non-Af Amer) ml/min BUN/Creatinine Ratio (10-20) Glucose (70-99(Fasting)) mg/dl Estimat Average Glucose 128 mg/dl Hemoglobin A1c 6.1 H (4.5-5.6) % Calcium (8.5-10.1) mg/dl Magnesium (1.7-2.4) mg/dl Total Bilirubin (0.2-1.0) mg/dl AST (13-39) U/L ALT (7-52) U/L Alkaline Phosphatase (34-104) U/L Troponin I High Sens (0-14) pg/ml Total Protein (6.0-8.3) gm/dl Albumin (3.4-5.0) gm/dl Globulin (2.5-4.0) gm/dl Albumin/Globulin Ratio (0.9-2) SARS-CoV-2 (PCR) (Negative) Influenza Type A (PCR) (Neg) Influenza Type B (PCR) (Neg) RSV (RT-PCR) (Neg) Imaging Data Radiologist's Impression: Chest X-Ray 01/08/22 17:37 XR chest 1V portable HISTORY: Cough. Shortness of breath. Pneumonia COMPARISON: Chest 04/22/2020. FINDINGS: No pneumothorax. No pleural fusions. The lungs are hyperexpanded with apical predominant emphysematous changes. The upper lung zones are clear. Hazy left basilar airspace opacities are noted. The heart is normal in size. No evidence for pulmonary edema. IMPRESSION: 1. Hazy left basilar airspace opacities likely representing a pneumonia. This could be due to viral process. 2. Emphysema. ACT 112: Negative or not required by law. Electronically signed by: Freddie Gambino M.D. 01/08/2022 6:00 PM ECG Data Attestation: I personally reviewed and interpreted this ECG as follows: Indication: + SOB/dyspnea Rate (beats per minute): 104 Rhythm: + sinus tachycardia ECG Intervals/blocks: + Normal QRS and + Normal QT ECG Mora: + Normal ECG ST segments: + Nonspecific ST abnormalities MDM Narrative An order was placed for continuous cardiac monitoring. The monitor shows a rate of _88_ with _normal sinus_ rhythm. This is a 71-year-old female presents emergency department after being referred by her PCP due to concern for failed outpatient treatment of pneumonia. Patient states she was originally told she had bilateral pneumonia and on repeat chest x-ray it was now unilateral and patient has had persistent symptoms despite an outpatient course of Augmentin. Patient was afebrile and hemodynamically stable. She was placed on oxygen due to saturations in the low 90s and complaints of feeling short of breath. I suspect given patient's underlying COPD and ongoing tobacco abuse at this is more likely her normal. Patient was found to have an infiltrate on chest x-ray. She did just complete a course of prednisone. I deferred additional initiation of steroids to the admitting hospitalist once we discussed the case. Patient started on additional IV antibiotics here. Patient was given oral potassium repletion. I do not suspect occult cardiac etiology or PE. Patient made aware of all results, verbalized understanding, was in agreement with plan. This time I do not suspect evolving sepsis. Patient does have a leukocytosis although this is likely secondary to infection and recent steroids. Impression & Plan Pneumonia, COPD (chronic obstructive pulmonary disease), Tobacco use, Hypokalemia, Dehydration Discharge Plan Visit Data Chief Complaint: Shortness of Breath/Dyspnea Stated Complaint: SOB, R SIDE RIB PAIN, DR REF ED Provider: Birgit Pritchett Discharge Problem: Pneumonia, COPD (chronic obstructive pulmonary disease), Tobacco use, Hypokalemia, Dehydration Patient Disposition: Admitted As Inpatient Discharge Instructions Interventions: ED Discharge Assessment Last Done: 01/08/22 21:55 Discharge Problem: Pneumonia Qualifiers: Pneumonia type: due to unspecified organism Laterality: left Lung location: unspecified part of lung Qualified Code(s): J18.9 - Pneumonia, unspecified organism COPD (chronic obstructive pulmonary disease) Qualifiers: COPD type: unspecified COPD Qualified Code(s): J44.9 - Chronic obstructive pulmonary disease, unspecified
[2022-01-08] MEDS ORDERED: MAGNESIUM SULFATE / D5W 1 GM/100 ML BAG IV ONE (19:52)
[2022-01-08] MEDS ORDERED: LACTATED RINGER'S 1,000 ML IV ONE (19:54)
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
[2022-01-08] MEDS ORDERED: methylPREDNISolone 20 MG in SYRINGE 0 ML IV STA (20:53)
[2022-01-08 20:59] LABS: Partial Thromboplastin Time 27.9 Seconds (21.0-31.0)
[2022-01-08] MEDS ORDERED: POTASSIUM CHLORIDE CRTAB 20 MEQ TABCR PO ONE (21:00)
[2022-01-08 21:14] LABS: Estimated Average Glucose 128 mg/dl; Hemoglobin A1C 6.1 % (4.5-5.6)
[2022-01-08] MEDS ORDERED: OPTIRAY 320 125ml IV ONE (22:02)
[2022-01-08] MEDS ORDERED: CARISOPRODOL 350 MG TABLET PO PRN (22:23)
[2022-01-08] MEDS ORDERED: traMADol HCL 50 MG TABLET PO PRN (22:23)
[2022-01-08] MEDS ORDERED: PROMETHAZINE HCL 6.25 MG in SODIUM CHLORIDE 0.9% 50 ML IV PRN (22:23)
[2022-01-08] MEDS ORDERED: ACETAMINOPHEN 325 MG TAB PO PRN (22:23)
[2022-01-08] MEDS ORDERED: ALBUT/IPRATROP 3MG/0.5MG NEB 3 ML VIAL ONE ×2 (23:41→23:57)
[2022-01-08] MEDS: ZOLPIDEM TARTRATE 10 MG TAB PO PRN (23:52)
[2022-01-08] MEDS: ATORVASTATIN 10 MG TAB PO SCH (23:52)
[2022-01-08] MEDS: HEPARIN SOD 5,000 UNIT/0.5 ML VIAL SQ SCH (23:53)
[2022-01-09] MEDS: IPRATROPIUM BROMIDE NEB SOLN 0.02% 2.5 ML VIAL INH SCH ×4 (00:04→19:36)
[2022-01-09] MEDS: LEVALBUTEROL 1.25MG/0.5ML NEB INH SCH ×4 (00:04→19:36)
[2022-01-09] MEDS ORDERED: XOPENEX/ATROVENT 1.25mg/0.5MG NEB COMBO NEB SCH (01:00)
[2022-01-09] MEDS: HEPARIN SOD 5,000 UNIT/0.5 ML VIAL SQ SCH ×3 (04:53→21:08)
[2022-01-09 06:25] LABS: Basophils # (auto) 0.01 K/uL (0-0.2); Basophils % (auto) 0.1 %; Hematocrit (blood only) 33.9 % (37-47); Hemoglobin 11.3 g/dL (12.0-16.0); Immature Granulocytes # (auto) 0.04 K/uL (0.00-0.02); Immature Granulocytes % (auto) 0.4 %; Lymphocytes # (auto) 0.94 K/uL (1.2-3.4); Lymphocytes % (auto) 9.7 %; Mean Corpuscular Hemoglobin 31.4 pg (25-34); Mean Corpuscular Hgb Conc 33.3 g/dL (32-36); Mean Corpuscular Volume 94.2 fL (80-100); Mean Platelet Volume 9.5 fL (7.4-10.4); Monocytes # (auto) 0.69 K/uL (0.11-0.59); Monocytes % (auto) 7.1 %; Neutrophils # (auto) 8.04 K/uL (1.4-6.5); Neutrophils % (auto) 82.7 %; Platelet Count 334 K/uL (130-400); RDW Coefficient of Variation 13.4 % (11.5-14.5); RDW Standard Deviation 46.1 fL (36.4-46.3); White Blood Count 9.72 K/uL (4.8-10.8)
[2022-01-09 06:48] LABS: BUN Creatinine Ratio 10.7 (10-20); Calcium 8.7 mg/dl (8.5-10.1); Est GFR (African American) 108.7 ml/min; Est GFR (Non-African American) 93.8 ml/min; Potassium 3.7 mmol/L (3.5-5.1)
[2022-01-09] MEDS ORDERED: LEVALBUTEROL HCL 1.25 MG/3 ML NEB ONE ×2 (06:56→12:51)
[2022-01-09] MEDS: predniSONE 20 MG TAB PO SCH (08:17)
[2022-01-09] MEDS: PANTOprazole 40 MG TAB PO SCH (08:17)
--- NOTE | 2022-01-09 08:50 | CT Scan Report ---
CHEST CTA for PULMONARY ARTERIES CT DOSE: 252.38 mGy.cm HISTORY: Atypical chest pain. Shortness of breath. TECHNIQUE: Multiaxial CT images of the chest were performed following the intravenous administration of contrast to evaluate the pulmonary arteries. Maximal intensity projection images were also obtaine d. A dose lowering technique was utilized adhering to the principles of ALARA. COMPARISON STUDY: None. FINDINGS: Limited views of the upper abdomen demonstrate a normal liver, spleen, and adrenal glands. No mediastinal or hilar lymphadenopathy. No pleural or pericardial effusions. Normal esophagus. The h eart is normal in size. Normal caliber thoracic aorta with no evidence for dissection. No filling def ects within the pulmonary arteries to suggest a pulmonary embolus. No suspicious lytic or blastic oss eous lesions. No pneumothorax. Mild bronchiectasis with severe emphysema. Partial opacification of th e distal left lower lobe bronchi with a patchy area of consolidation at the base of the left lower lo be. This is consistent with a pneumonia and may be secondary to aspiration. Biapical pleural-parenchy mal scarlike densities are noted. Small patchy densities within the base of the right upper lobe ante riorly also likely representing a pneumonitis. A few small scattered tree-in-bud nodular opacities wi thin the lung bases. IMPRESSION: 1. No evidence for pulmonary embolus. Patchy airspace opacities within the base of the left lower lob e and anterior right upper lobe likely representing a pneumonia. This could be due to aspiration. 2. Advanced emphysema with mild bronchiectasis and scattered areas of mucous plugging within the dist al bronchi. There are few tree-in-bud nodular opacities. This favors a chronic infectious bronchiolit is. 3. Biapical irregular densities are nonspecific but favor pleural-parenchymal scarring. In the absenc e of prior studies this should be followed up in 6 months to ensure stability. ACT 112: Negative or not required by law. Electronically signed by: Freddie Gambino M.D. 01/09/2022 8:48 AM
[2022-01-09] MEDS: HYDROCODONE/ACETAMOPHEN 5/325MG TAB PO PRN ×3 (08:57→21:08)
[2022-01-09] MEDS ORDERED: CONSULT PHARMACY SCH (09:00)
[2022-01-09] MEDS ORDERED: CEROVITE ADV FORMULA TAB PO SCH (09:00)
--- NOTE | 2022-01-09 11:07 | Pulmonary Consultation ---
Date of Consultation January 09, 2022 Assessment & Plan (1) Sepsis: COPD exacerbation 2/2 community acquired pneumonia -Labs, imaging and hospital notes reviewed -Pt meets criteria for COPD GOLD Class C at minimum and should be on long-acting bronchodilators- ICS + LAMA. Recommending initiating daily Incruse and Breo Ellipta. -Continue duonebs q6h and space to PRN. Continue steroids- prednisone 20 mg. Continue O2 supplementation, wean as able to RA as pt is not on home oxygen -BMP with CO2 of 29 indicates degree of compensation for her likely chronic respiratory acidosis. Recommend ABG in AM to assess for hypercapnia -Given pt's age and comorbidities including AAA, Levaquin poses concern as her current abx. However she does seem to be improving in regard to her pneumonia and pseudomonal coverage is appropriate based on her clinical history. Would recommend considering alternative abx choice such as cefepime for reduced adverse effect pertinent to her comorbidities -Smoking cessation f/u as outpatient. Recommend PFT as outpatient, f/u in pulmonology clinic after discharge -Rest of management per primary service Patient seen and examined with resident physician. Agree with the assessment and plan as noted aside for any additions/exceptions: 71-year-old female with extensive 40-[id number]-tujd smoking history presenting to the hospital due to failed outpatient treatment for COPD exacerbation. Patient is not currently on any maintenance inhaler therapy. Agree with low-dose prednisone for course of 5 to 7 days and a broad-spectrum antibiotic to cover for atypicals and pseudomonal infection. Patient will be started on Breo Ellipta and Incruse Ellipta while inpatient. Would recommend an ICS/LABA/LAMA combination therapy as an outpatient and upon discharge. Incentive spirometer and flutter valve ordered as well for mucociliary clearance and pulmonary toileting. PFTs recommended as an outpatient. Patient is likely candidate for pulmonary rehab. CT chest imaging reviewed with small areas of tree-in-bud opacities and patchy airspace disease in left lower lobe and anterior right upper lobe. Sputum cultures pending. Can consider sending sputum culture for AFB evaluation and she is at risk for nontuberculous Mycobacterium. Recommend oxygen qualification study prior to discharge. Thank you for the consultation. Please call with questions. Physical exam: Constitutional: Thin appearing female no apparent distress. Eyes: Pupils are equal round and reactive to light. Conjunctivae are normal. Anicteric sclera. Ears nose, mouth and throat: No obvious deformities. Neck: Trachea is midline. Visual inspection is normal. Respiratory: Prolonged phase of exhalation. No wheezes. No tachypnea. Cardiovascular: Regular rate and rhythm. No murmurs. No edema. Gastrointestinal: Normal bowel sounds, soft, nontender and nondistended. No hepatosplenomegaly noted. Musculoskeletal: No cyanosis. Patient is able to move all extremities. Skin: No rashes, warm dry and intact. Neurologic: No obvious focal neurological deficits seen. Psychiatric: Alert and oriented x3 with a euthymic affect. History of Present Illness Reason for Consultation: COPD exacerbation 2/2 CAP, failed outpatient treatment Requesting Physician: Kj Mcmahon MD Attending Physician: Kj Mcmahon MD History of Present Illness 71 yo F with PMH COPD, 50+ pack year smoking history, AAA, HLD presenting with dyspnea + productive cough. Pt's symptoms initially began 3 weeks prior with just productive cough and went to PCP. Outpatient CXR revealed bibasilar pneumonia and PCP subsequently prescribed steroids + Augmentin for COPD exacerbation 2/2 community acquired pneumonia. Pt's symptoms initially showed moderate improvement but began to worsen 1x week prior. Symptoms evolved to include worsening dyspnea both at rest and on exertion along with pleuritic R substernal chest pain. Cough production evolved from clear to green sputum. During this time pt continued to smoke at her usual frequency but states she finally stopped yesterday afternoon. Pt was unwilling to go to ER and argued with PCP but finally relented after pressure from her and daughter. Pt states she has never seen a filter press tender head nor has she ever been prescribed a long-acting or combination inhaler. The only inhaler she has is albuterol which she reports using very infrequently. She also has a nebulizer but states no one ever explained to her how to use one. Similarly, she does not use the nebulizer frequently either. Denies previous COPD exacerbations. On evaluation, pt states she does not feel short of breath but continues to endorse productive cough. However, her symptoms are much better than on day prior when she came to ER. Denies chest pain, fevers, chills, nausea/vomiting, lightheadedness. Tolerating meals well. Allergies Allergy/AdvReac Type Severity Reaction Status Date / Time sumatriptan [From Imitrex] Allergy Severe stopped Verified 01/08/22 21:33 breathing as per px Home Medications Medication Instructions Recorded Confirmed Type albuterol sulfate 2.5 mg INHALATION Q4 PRN 04/22/20 01/08/22 History albuterol sulfate 90 mcg/actuation 1 puff INHALATION QID PRN 04/22/20 01/08/22 History aerosol inhaler alendronate 70 mg tablet 70 mg PO WK 04/22/20 01/08/22 History atorvastatin 10 mg tablet 10 mg PO HS 04/22/20 01/08/22 History butalbital 50 mg-acetaminophen 325 1 cap PO Q4 PRN 04/22/20 01/08/22 History mg-caffeine 40 mg-codeine 30 mg cap calcium carbonate 600 mg-vitamin 1 cap PO BID 04/22/20 01/08/22 History D3 5 mcg (200 unit) capsule (Calcium 600 + D(3)) carisoprodol 350 mg tablet 350 mg PO TID PRN 04/22/20 01/08/22 History cholecalciferol (vitamin D3) 25 25 mcg PO DAILY 04/22/20 01/08/22 History mcg (1,000 unit) tablet (Vitamin D3) hydrocodone 5 mg-acetaminophen 325 1 tab PO TID PRN 04/22/20 01/08/22 History mg tablet multivit,xxzykgp-mhgr-JF-lut-#179herbal 1 tab PO DAILY 04/22/20 01/08/22 History 13.5 mg-200 mcg-250 mcg tablet ([facility]) omeprazole 20 mg capsule,delayed 20 mg PO QAM 04/22/20 01/08/22 History release zolpidem 10 mg tablet 10 mg PO HS 04/22/20 01/08/22 History Patient History Medical History COPD (chronic obstructive pulmonary disease) Fibromyalgia Hematuria Hyperlipidemia Lumbar disc disease Migraine Osteoporosis Tobacco use Social History Smoking Status: Current every day smoker Tobacco Type: Cigarettes Cigarettes Per Day: 8; Second Hand Exposure: Yes; Do You Dip or Chew Tobacco: No; Hx Alcohol Use: No Hx Substance Use: No Preferred Language: Lithuanian 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 Ability: Effective Pipe Supervisor Required: No Beliefs That Will Affect Care: None marital status: Current Living Situation: Spouse Current Living Situation Comment: Lives with and son Other Information That Helps Us Care for You: No Feels Safe at Home: Yes Safety Concerns: Feels Safe At This Time Assistive Devices: None Review of Systems Review of Systems: Per HPI Physical Exam Physical Exam: GENERAL: no acute distress, cachectic SKIN: Normal color, warm HEENT: Mildly dry mucous membranes, nasal cannula in place NECK : Supple, no anterior/posterior cervical lymphadenopathy b/l, no JVD b/l CHEST : Diminished breath sounds b/l, no crackles or wheezes appreciated, no accessory muscle use HEART : RRR, normal S1, S2 ABDOMEN: Soft, nontender, nondistended EXTREMITIES : No peripheral edema, distal pulses UE/LE intact b/l NEUROLOGIC : grossly alert and oriented, no focal motor or sensory deficits, Results & Data Results & Data ([facility]) Vital Signs (Past 12 Hours) Vital Signs Temp Pulse Pulse Pulse Resp BP Pulse Ox 01/09/22 07:39 36.6 C 87 20 101/61 90 01/09/22 07:37 80 20 95 01/09/22 06:16 82 01/09/22 03:35 36.8 C 89 18 93/51 L 92 01/09/22 00:05 89 18 95 01/08/22 23:50 92 H Resident Activity Tracking Resident Involvement: Resident Care Provided Care Provided: Adult Hospital Medicine
[2022-01-09] MEDS: FLUTICASONE/VILANTEROL 100/25MCG 14 PUFFS/INHALER INH SCH (12:03)
[2022-01-09] MEDS: UMECLIDINIUM BROMIDE 62.5MCG/BLISTER 7 PUFFS/INHALER INH SCH (12:03)
--- NOTE | 2022-01-09 13:42 | Billing Data ---
Date of Service January 09, 2022 Coding Level of Care Code 83573 Initial Inpt Care Lvl 3
--- NOTE | 2022-01-09 15:01 | Hospitalist Progress Note ---
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 Cough, shortness of breath -Recently finished CAP treatment course with Augmentin -Procalcitonin 0.06 -She was started on levaquin for pseudomonas and atypical coverage and it appears she is improving. However, with her age and multiple comorbidities, she is at increased risk for AR from fluoroquinolone. Will d/c Levaquin and instead start Cefepime and doxycyline. COPD Emphysema -Was previously only on albuterol PRN -Appreciate Pulmonology input, started on maintenance inhaler -She would benefit from formal PFTs after discharge -continue prednisone 20mg daily Current smoker -Ongoing smoking cessation education -Nicorette gum PRN Severe protein malnutrition -Appreciate RD input, diet liberalized to general to encourage oral intake DVT ppx SQ heparin Admission and Anticipated Discharge Date Admission Date: January 08, 2022 Subjective Breathing improved now weaned to RA Physical Exam Physical Exam: thin, cachetic, eating lunch, no acute distress Respiratory: poor airflow diffusely, no wheezing/rhonchi Cardiovascular: regular rate and rhythm, no murmurs/rubs/gallops Gastrointestinal (Abdomen): soft, non tender, non distended Musculoskeletal: no edema, peripheral muscle wasting Neurologic: awake, alert, spontaneously moving extremities Results & Data Results & Data ([facility]) Vital Signs (Past 12 Hours) Vital Signs Temp Pulse Pulse Resp BP Pulse Ox 01/09/22 12:57 87 18 91 01/09/22 10:55 36.5 C 81 19 121/72 94 01/09/22 07:39 36.6 C 87 20 101/61 90 01/09/22 07:37 80 20 95 01/09/22 06:16 82 01/09/22 03:35 36.8 C 89 18 93/51 L 92 Laboratory Results Short CBC 01/08/22 01/09/22 Range/Units 18:00 06:08 WBC 13.96 H 9.72 (4.8-10.8) K/uL Hgb 13.4 11.3 L (12.0-16.0) g/dL Hct 39.5 33.9 L (37-47) % Plt Count 393 334 (130-400) K/uL BMP 01/08/22 01/09/22 18:00 06:08 Sodium 134 L 137 Potassium 2.9 L 3.7 D Chloride 94 L 102 Carbon Dioxide 31 29 BUN 9 6 Creatinine 0.66 0.56 L Glucose 123 H 158 H Calcium 9.5 8.7 Liver Function 01/08/22 Range/Units 18:00 Total Bilirubin 0.5 (0.2-1.0) mg/dl AST 21 (13-39) U/L ALT 18 (7-52) U/L Alkaline Phosphatase 103 (34-104) U/L Albumin 4.0 (3.4-5.0) gm/dl Medications Administered Current Inpatient Medications Acetaminophen (Acetaminophen 325 Mg Tab) 650 mg PO Q4H PRN PRN Reason: Pain or Fever Stop: 02/07/22 22:22 Hydrocodone Bitart/Acetaminophen (Hydrocodone/Acetamophen 5/325mg Tab) 1 tab PO TID PRN PRN Reason: Pain Stop: 01/22/22 22:22 Last Admin: 01/09/22 08:57 Dose: 1 tab Documented by: Atorvastatin Calcium (Atorvastatin 10 Mg Tab) 10 mg PO HS [facility] Stop: 02/07/22 22:22 Last Admin: 01/08/22 23:52 Dose: 10 mg Documented by: Carisoprodol (Carisoprodol 350 Mg Tablet) 350 mg PO TID PRN PRN Reason: Muscle Spasm Stop: 02/07/22 22:22 Fluticasone/Vilanterol (Fluticasone/Vilanterol 100/25mcg 14 Puffs/Inhaler) 1 puffs INH DAILY [facility] Stop: 02/08/22 11:59 Last Admin: 01/09/22 12:03 Dose: 1 puffs Documented by: Heparin Sodium (Porcine) (Heparin Sod 5,000 Unit/0.5 Ml Vial) 5,000 units SQ Q8 [facility] Stop: 02/07/22 22:22 Last Admin: 01/09/22 04:53 Dose: Not Given Documented by: Promethazine HCl 6.25 mg/ (Sodium Chloride) 50.25 mls @ 201 mls/hr IV Q6H PRN PRN Reason: Nausea And Vomiting Stop: 02/07/22 22:22 Ipratropium [place] (Ipratropium [place] Neb Soln 0.02% 2.5 Ml Vial) 0.5 mg INH Q6R [facility] Stop: 02/08/22 00:59 Last Admin: 01/09/22 12:53 Dose: 0.5 mg Documented by: Levalbuterol HCl (Levalbuterol 1.25mg/0.5ml Neb) 1.25 mg INH Q6R [facility] Stop: 02/08/22 00:59 Last Admin: 01/09/22 12:53 Dose: Not Given Documented by: Levofloxacin (Levofloxacin 750 Mg Tab) 750 mg PO Q24H [facility]; Protocol Stop: 01/16/22 18:59 Multivitamins/Minerals (Cerovite Adv Formula Tab) 1 tab PO DAILY [facility] Stop: 02/08/22 08:59 Last Admin: 01/09/22 08:17 Dose: 1 tab Documented by: Pantoprazole Sodium (Pantoprazole 40 Mg Tab) 40 mg PO QAM [facility] Stop: 02/08/22 08:59 Last Admin: 01/09/22 08:17 Dose: 40 mg Documented by: Prednisone (Prednisone 20 Mg Tab) 20 mg PO DAILY [facility] Stop: 01/13/22 08:59 Last Admin: 01/09/22 08:17 Dose: 20 mg Documented by: Tramadol HCl (Tramadol Hcl 50 Mg Tablet) 25 mg PO Q4H PRN PRN Reason: Pain Stop: 02/07/22 22:22 Umeclidinium [place] (Umeclidinium [place] 62.5mcg/Blister 7 Puffs/Inhaler) 1 puffs INH QAM [facility] Stop: 02/08/22 11:59 Last Admin: 01/09/22 12:03 Dose: 1 puffs Documented by: Zolpidem Tartrate (Zolpidem Tartrate 10 Mg Tab) 10 mg PO HS PRN PRN Reason: Insomnia Stop: 02/07/22 22:22 Last Admin: 01/08/22 23:52 Dose: 10 mg Documented by:
[2022-01-09] MEDS ORDERED: NICOTINE POLACRILEX 2 MG GUM MT PRN (15:05)
[2022-01-09] MEDS: CEFEPIME 2,000 MG in SYRINGE 0 ML IV SCH (16:22)
[2022-01-09] MEDS ORDERED: levoFLOXacin 750 MG TAB PO SCH (19:00)
[2022-01-09] MEDS: DOXYCYCLINE HYCLATE 100 MG CAP PO SCH (20:10)
[2022-01-09] MEDS: ATORVASTATIN 10 MG TAB PO SCH (20:10)
[2022-01-09] MEDS ORDERED: CEFEPIME 2,000 MG in SYRINGE 0 ML IV SCH (22:00)
[2022-01-09] MEDS: ZOLPIDEM TARTRATE 10 MG TAB PO PRN (23:29)
[2022-01-10] MEDS: LEVALBUTEROL 1.25MG/0.5ML NEB INH SCH ×4 (00:02→19:53)
[2022-01-10] MEDS: IPRATROPIUM BROMIDE NEB SOLN 0.02% 2.5 ML VIAL INH SCH ×4 (00:02→19:53)
[2022-01-10] MEDS: CEFEPIME 2,000 MG in SYRINGE 0 ML IV SCH ×2 (04:30→14:14)
[2022-01-10] MEDS: HEPARIN SOD 5,000 UNIT/0.5 ML VIAL SQ SCH ×3 (05:08→21:02)
[2022-01-10 06:52] LABS: Base Excess ABG 3.5 mEq/L (-9-1.8); HCO3 ABG 26 mmol/L (19-24); PCO2 ABG 32 mmHg (35-46); PO2 ABG 62 mmHg (80-95)
[2022-01-10 06:55] LABS: Hematocrit (blood only) 32.8 % (37-47); Mean Corpuscular Hemoglobin 31.2 pg (25-34); Mean Corpuscular Hgb Conc 33.5 g/dL (32-36); Mean Corpuscular Volume 92.9 fL (80-100); Mean Platelet Volume 9.5 fL (7.4-10.4); Platelet Count 357 K/uL (130-400); RDW Coefficient of Variation 13.6 % (11.5-14.5); RDW Standard Deviation 46.3 fL (36.4-46.3); Red Blood Count 3.53 M/uL (4.2-5.4); White Blood Count 9.52 K/uL (4.8-10.8)
[2022-01-10 07:01] LABS: Allen Test Pos (Pos); pH ABG 7.52 (7.35-7.45)
--- NOTE | 2022-01-10 07:38 | Hospitalist Progress Note ---
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 Cough, shortness of breath -Recently finished CAP treatment course with Augmentin -Procalcitonin 0.06 -She was started on levaquin for pseudomonas and atypical coverage and it appears she is improving. However, with her age and multiple comorbidities, she is at increased risk for AR from fluoroquinolone. Will d/c Levaquin and instead start Cefepime and doxycyline. COPD Emphysema -Was previously only on albuterol PRN -Appreciate Pulmonology input, started on maintenance inhaler - Incruse + Breo ellipta -She would benefit from formal PFTs after discharge -continue prednisone 20mg daily Current smoker -Ongoing smoking cessation education -Nicorette gum PRN Severe protein malnutrition -Appreciate RD input, diet liberalized to general to encourage oral intake DVT ppx SQ heparin Admission and Anticipated Discharge Date Admission Date: January 08, 2022 Subjective Patient seen in follow-up of COPD exacerbation, pneumonia Currently patient sitting up in bed, in no acute distress She is on room air Reports improvement in cough, and sputum production Denies fevers, chills, chest pain, says shortness of breath is improved No abdominal pain, nausea vomiting Review of Systems Review of Systems: All systems reviewed & are unremarkable except as noted in Subjective Physical Exam Physical Exam: Physical Exam: thin, cachetic F i n no acute distres s Respiratory: poor airflow diffu sely, no wheezing/ rhonchi Cardiovascular:H regular rate and r hythm, no murmurs/ rubs/gallops Gastrointestinal ( Abdomen): soft, non tender, non distended Musculoskeletal: no edema, peripher al muscle wasting Neurologic: awake, alert, spon taneously moving e xtremities Results & Data Results & Data ([facility]) Vital Signs (Past 12 Hours) Vital Signs Temp Pulse Resp BP Pulse Ox 01/10/22 07:32 93 H 18 93 01/10/22 03:32 36.8 C 101 H 18 118/69 94 01/09/22 23:32 36.4 C L 86 18 114/60 91 01/09/22 19:37 85 20 94 Laboratory Results 01/10/22 01/10/22 01/09/22 Range/Units 06:35 06:29 12:38 WBC 9.52 (4.8-10.8) K/uL RBC 3.53 L (4.2-5.4) M/uL Hgb 11.0 L (12.0-16.0) g/dL Hct 32.8 L (37-47) % MCV 92.9 (80-100) fL MCH 31.2 (25-34) pg MCHC 33.5 (32-36) g/dL RDW Std Deviation 46.3 (36.4-46.3) fL RDW Coeff of Nakul 13.6 (11.5-14.5) % Plt Count 357 (130-400) K/uL MPV 9.5 (7.4-10.4) fL ABG pH 7.52 H* (7.35-7.45) ABG pCO2 32 L (35-46) mmHg ABG pO2 62 L (80-95) mmHg ABG HCO3 26 H (19-24) mmol/L ABG O2 Saturation 93.0 (90-95) % ABG Base Excess 3.5 H (-9-1.8) mEq/L Janusz Test Pos (Pos) Barometric Pressure 736.8 mm/Hg Oxygen Given 2L Procalcitonin (0-0.5) ng/ml Urine Legionella Ag Pending 01/09/22 Range/Units 09:47 WBC (4.8-10.8) K/uL RBC (4.2-5.4) M/uL Hgb (12.0-16.0) g/dL Hct (37-47) % MCV (80-100) fL MCH (25-34) pg MCHC (32-36) g/dL RDW Std Deviation (36.4-46.3) fL RDW Coeff of Nakul (11.5-14.5) % Plt Count (130-400) K/uL MPV (7.4-10.4) fL ABG pH (7.35-7.45) ABG pCO2 (35-46) mmHg ABG pO2 (80-95) mmHg ABG HCO3 (19-24) mmol/L ABG O2 Saturation (90-95) % ABG Base Excess (-9-1.8) mEq/L Janusz Test (Pos) Barometric Pressure mm/Hg Oxygen Given Procalcitonin 0.06 (0-0.5) ng/ml Urine Legionella Ag Medications Administered Current Inpatient Medications Acetaminophen (Acetaminophen 325 Mg Tab) 650 mg PO Q4H PRN PRN Reason: Pain or Fever Stop: 02/07/22 22:22 Hydrocodone Bitart/Acetaminophen (Hydrocodone/Acetamophen 5/325mg Tab) 1 tab PO TID PRN PRN Reason: Pain Stop: 01/22/22 22:22 Last Admin: 01/09/22 21:08 Dose: 1 tab Documented by: Atorvastatin Calcium (Atorvastatin 10 Mg Tab) 10 mg PO HS [facility] Stop: 02/07/22 22:22 Last Admin: 01/09/22 20:10 Dose: 10 mg Documented by: Carisoprodol (Carisoprodol 350 Mg Tablet) 350 mg PO TID PRN PRN Reason: Muscle Spasm Stop: 02/07/22 22:22 Doxycycline Hyclate (Doxycycline Hyclate 100 Mg Cap) 100 mg PO BID [facility] Stop: 01/16/22 20:59 Last Admin: 01/09/22 20:10 Dose: 100 mg Documented by: Fluticasone/Vilanterol (Fluticasone/Vilanterol 100/25mcg 14 Puffs/Inhaler) 1 puffs INH DAILY [facility] Stop: 02/08/22 11:59 Last Admin: 01/09/22 12:03 Dose: 1 puffs Documented by: Heparin Sodium (Porcine) (Heparin Sod 5,000 Unit/0.5 Ml Vial) 5,000 units SQ Q8 [facility] Stop: 02/07/22 22:22 Last Admin: 01/10/22 05:08 Dose: Not Given Documented by: Promethazine HCl 6.25 mg/ (Sodium Chloride) 50.25 mls @ 201 mls/hr IV Q6H PRN PRN Reason: Nausea And Vomiting Stop: 02/07/22 22:22 Cefepime HCl 2,000 mg/ Syringe 20 mls @ 5 mls/min IV Q12H [facility]; Protocol Stop: 01/16/22 15:29 Last Admin: 01/10/22 04:30 Dose: 5 mls/min Documented by: Ipratropium [place] (Ipratropium [place] Neb Soln 0.02% 2.5 Ml Vial) 0.5 mg INH Q6R [facility] Stop: 02/08/22 00:59 Last Admin: 01/10/22 07:31 Dose: 0.5 mg Documented by: Levalbuterol HCl (Levalbuterol 1.25mg/0.5ml Neb) 1.25 mg INH Q6R [facility] Stop: 02/08/22 00:59 Last Admin: 01/10/22 07:31 Dose: Not Given Documented by: Multivitamins/Minerals (Cerovite Adv Formula Tab) 1 tab PO DAILY [facility] Stop: 02/08/22 08:59 Last Admin: 01/09/22 08:17 Dose: 1 tab Documented by: Nicotine Polacrilex (Nicotine Polacrilex 2 Mg Gum) 1 piece MT PRN PRN PRN Reason: smoke Stop: 02/08/22 15:04 Pantoprazole Sodium (Pantoprazole 40 Mg Tab) 40 mg PO QAM [facility] Stop: 02/08/22 08:59 Last Admin: 01/09/22 08:17 Dose: 40 mg Documented by: Prednisone (Prednisone 20 Mg Tab) 20 mg PO DAILY [facility] Stop: 01/13/22 08:59 Last Admin: 01/09/22 08:17 Dose: 20 mg Documented by: Saccharomyces Boulardii (Saccharomyces Boulardii 250 Mg Cap) 250 mg PO DAILY [facility] Stop: 02/09/22 08:59 Tramadol HCl (Tramadol Hcl 50 Mg Tablet) 25 mg PO Q4H PRN PRN Reason: Pain Stop: 02/07/22 22:22 Umeclidinium [place] (Umeclidinium [place] 62.5mcg/Blister 7 Puffs/Inhaler) 1 puffs INH QAM [facility] Stop: 02/08/22 11:59 Last Admin: 01/09/22 12:03 Dose: 1 puffs Documented by: Zolpidem Tartrate (Zolpidem Tartrate 10 Mg Tab) 10 mg PO HS PRN PRN Reason: Insomnia Stop: 02/07/22 22:22 Last Admin: 01/09/22 23:29 Dose: 10 mg Documented by:
[2022-01-10] MEDS: HYDROCODONE/ACETAMOPHEN 5/325MG TAB PO PRN ×3 (07:52→20:11)
[2022-01-10] MEDS: FLUTICASONE/VILANTEROL 100/25MCG 14 PUFFS/INHALER INH SCH (08:26)
[2022-01-10] MEDS: predniSONE 20 MG TAB PO SCH (08:26)
[2022-01-10] MEDS: DOXYCYCLINE HYCLATE 100 MG CAP PO SCH ×2 (08:26→20:07)
[2022-01-10] MEDS: PANTOprazole 40 MG TAB PO SCH (08:26)
[2022-01-10] MEDS: UMECLIDINIUM BROMIDE 62.5MCG/BLISTER 7 PUFFS/INHALER INH SCH (08:27)
[2022-01-10] MEDS: SACCHAROMYCES BOULARDII 250 MG CAP PO SCH (08:27)
[2022-01-10] MEDS ORDERED: levoFLOXacin 750 MG TAB PO SCH (11:00)
[2022-01-10] MEDS ORDERED: LEVALBUTEROL HCL 1.25 MG/3 ML NEB ONE (13:00)
[2022-01-10] MEDS: ATORVASTATIN 10 MG TAB PO SCH (20:07)
--- NOTE | 2022-01-10 22:52 | Electrocardiogram Report ---
Test Reason : Blood Pressure : / mmHG Vent. Rate : 104 BPM Atrial Rate : 104 BPM P-R Int : 114 ms QRS Dur : 082 ms QT Int : 312 ms P-R-T Axes : 088 072 -45 degrees QTc Int : 410 ms Poor data quality, interpretation may be adversely affected Sinus tachycardia Right atrial enlargement T wave abnormality, consider inferolateral ischemia Abnormal ECG When compared with ECG of 23-APR-2020 06:44, T wave inversion now evident in Inferior leads T wave inversion no longer evident in Anterior leads QT has shortened Confirmed by Shyam Rogers ([id number]) on 01/10/2022 10:51:50 PM Referred By: Nick Stearns Confirmed By:Shyam Rogers
[2022-01-10] MEDS: ZOLPIDEM TARTRATE 10 MG TAB PO PRN (23:08)
[2022-01-11] MEDS: IPRATROPIUM BROMIDE NEB SOLN 0.02% 2.5 ML VIAL INH SCH ×4 (01:12→19:47)
[2022-01-11] MEDS: LEVALBUTEROL 1.25MG/0.5ML NEB INH SCH ×4 (01:13→20:11)
[2022-01-11] MEDS: CEFEPIME 2,000 MG in SYRINGE 0 ML IV SCH ×2 (03:28→14:03)
[2022-01-11] MEDS: HEPARIN SOD 5,000 UNIT/0.5 ML VIAL SQ SCH ×3 (05:30→23:30)
[2022-01-11 06:09] LABS: Hematocrit (blood only) 33.4 % (37-47); Hemoglobin 11.2 g/dL (12.0-16.0); Mean Corpuscular Hemoglobin 30.9 pg (25-34); Mean Corpuscular Hgb Conc 33.5 g/dL (32-36); Mean Corpuscular Volume 92.3 fL (80-100); Mean Platelet Volume 9.4 fL (7.4-10.4); Platelet Count 373 K/uL (130-400); RDW Coefficient of Variation 13.8 % (11.5-14.5); RDW Standard Deviation 46.8 fL (36.4-46.3); Red Blood Count 3.62 M/uL (4.2-5.4); White Blood Count 8.45 K/uL (4.8-10.8)
[2022-01-11 06:33] LABS: BUN Creatinine Ratio 21.2 (10-20); Calcium 9.3 mg/dl (8.5-10.1); Creatinine Clr Calc Pharmacy 61.9 ml/min; Est GFR (African American) 111.4 ml/min; Est GFR (Non-African American) 96.1 ml/min; Magnesium 1.7 mg/dl (1.7-2.4); Phosphorus 2.3 mg/dl (2.5-4.9); Potassium 3.8 mmol/L (3.5-5.1)
[2022-01-11] MEDS ORDERED: LEVALBUTEROL HCL 1.25 MG/3 ML NEB ONE ×2 (07:17→12:00)
[2022-01-11] MEDS: DOXYCYCLINE HYCLATE 100 MG CAP PO SCH ×2 (08:01→20:17)
[2022-01-11] MEDS: SACCHAROMYCES BOULARDII 250 MG CAP PO SCH (08:01)
[2022-01-11] MEDS: PANTOprazole 40 MG TAB PO SCH (08:01)
[2022-01-11] MEDS: predniSONE 20 MG TAB PO SCH (08:02)
[2022-01-11] MEDS: FLUTICASONE/VILANTEROL 100/25MCG 14 PUFFS/INHALER INH SCH (08:02)
[2022-01-11] MEDS: UMECLIDINIUM BROMIDE 62.5MCG/BLISTER 7 PUFFS/INHALER INH SCH (08:02)
[2022-01-11] MEDS: HYDROCODONE/ACETAMOPHEN 5/325MG TAB PO PRN ×3 (09:17→21:04)
[2022-01-11] MEDS ORDERED: MAGNESIUM SULFATE / D5W 1 GM/100 ML BAG IV ONE (15:13)
--- NOTE | 2022-01-11 16:48 | Hospitalist Progress Note ---
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 Cough, shortness of breath -Recently finished CAP treatment course with Augmentin -Procalcitonin 0.06 -She was started on levaquin for pseudomonas and atypical coverage and it appears she is improving. However, with her age and multiple comorbidities, she is at increased risk for AR from fluoroquinolone. Stopped Levaquin and instead started Cefepime and doxycyline. COPD Emphysema -Was previously only on albuterol PRN -Appreciate Pulmonology input, started on maintenance inhaler - Incruse + Breo ellipta -She would benefit from formal PFTs after discharge -continue prednisone 20mg daily Current smoker -Ongoing smoking cessation education -Pt decided to quit smoking altogether -Nicotine supplement offered, for now pt declines Severe protein malnutrition -Appreciate RD input, diet liberalized to general to encourage oral intake DVT ppx SQ heparin Admission and Anticipated Discharge Date Admission Date: January 08, 2022 Subjective Patient seen in follow-up of COPD exacerbation, pneumonia Currently patient sitting up in bed, in no acute distress She is on room air Reports improvement in cough, and sputum production, also says that sputum is not green anymore and more white Denies fevers, chills, chest pain, says shortness of breath is improved No abdominal pain, nausea vomiting Review of Systems Review of Systems: All systems reviewed & are unremarkable except as noted in Subjective Physical Exam Physical Exam: Physical Exam: thin, cachetic F i n no acute distres s Respiratory: poor airflow diffu sely, no wheezing/ rhonchi Cardiovascular:H regular rate and r hythm, no murmurs/ rubs/gallops Gastrointestinal ( Abdomen): soft, non tender, non distended Musculoskeletal: no edema, peripher al muscle wasting Neurologic: awake, alert, spon taneously moving e xtremities Results & Data Results & Data ([facility]) Vital Signs (Past 12 Hours) Vital Signs Temp Pulse Pulse Resp BP BP Pulse Ox 01/11/22 14:46 94 H 01/11/22 12:07 90 20 93 01/11/22 11:10 36.7 C 89 20 125/73 92 01/11/22 09:46 95 H 01/11/22 07:21 92 H 20 93 01/11/22 07:20 36.4 C L 88 20 127/70 92 Laboratory Results 01/11/22 01/11/22 Range/Units 05:42 05:42 WBC 8.45 (4.8-10.8) K/uL RBC 3.62 L (4.2-5.4) M/uL Hgb 11.2 L (12.0-16.0) g/dL Hct 33.4 L (37-47) % MCV 92.3 (80-100) fL MCH 30.9 (25-34) pg MCHC 33.5 (32-36) g/dL RDW Std Deviation 46.8 H (36.4-46.3) fL RDW Coeff of Nakul 13.8 (11.5-14.5) % Plt Count 373 (130-400) K/uL MPV 9.4 (7.4-10.4) fL Sodium 138 (136-145) mmol/L Potassium 3.8 (3.5-5.1) mmol/L Chloride 104 (98-107) mmol/L Carbon Dioxide 27 (21-32) mmol/L Anion Gap 7 (3-11) BUN 11 (6-23) mg/dl Creatinine 0.52 L (0.6-1.2) mg/dl Est Cr Clr Drug Dosing 61.9 ml/min Est GFR ( Amer) 111.4 ml/min Est GFR (Non-Af Amer) 96.1 ml/min BUN/Creatinine Ratio 21.2 H (10-20) Glucose 111 H (70-99(Fasting)) mg/dl Calcium 9.3 (8.5-10.1) mg/dl Phosphorus 2.3 L (2.5-4.9) mg/dl Magnesium 1.7 (1.7-2.4) mg/dl Medications Administered Current Inpatient Medications Acetaminophen (Acetaminophen 325 Mg Tab) 650 mg PO Q4H PRN PRN Reason: Pain or Fever Stop: 02/07/22 22:22 Hydrocodone Bitart/Acetaminophen (Hydrocodone/Acetamophen 5/325mg Tab) 1 tab PO TID PRN PRN Reason: Pain Stop: 01/22/22 22:22 Last Admin: 01/11/22 15:33 Dose: 1 tab Documented by: Atorvastatin Calcium (Atorvastatin 10 Mg Tab) 10 mg PO HS [facility] Stop: 02/07/22 22:22 Last Admin: 01/10/22 20:07 Dose: 10 mg Documented by: Carisoprodol (Carisoprodol 350 Mg Tablet) 350 mg PO TID PRN PRN Reason: Muscle Spasm Stop: 02/07/22 22:22 Doxycycline Hyclate (Doxycycline Hyclate 100 Mg Cap) 100 mg PO BID [facility] Stop: 01/16/22 20:59 Last Admin: 01/11/22 08:01 Dose: 100 mg Documented by: Fluticasone/Vilanterol (Fluticasone/Vilanterol 100/25mcg 14 Puffs/Inhaler) 1 puffs INH DAILY [facility] Stop: 02/08/22 11:59 Last Admin: 01/11/22 08:02 Dose: 1 puffs Documented by: Heparin Sodium (Porcine) (Heparin Sod 5,000 Unit/0.5 Ml Vial) 5,000 units SQ Q8 [facility] Stop: 02/07/22 22:22 Last Admin: 01/11/22 14:03 Dose: 5,000 units Documented by: Promethazine HCl 6.25 mg/ (Sodium Chloride) 50.25 mls @ 201 mls/hr IV Q6H PRN PRN Reason: Nausea And Vomiting Stop: 02/07/22 22:22 Cefepime HCl 2,000 mg/ Syringe 20 mls @ 5 mls/min IV Q12H [facility]; Protocol Stop: 01/16/22 15:29 Last Admin: 01/11/22 14:03 Dose: 5 mls/min Documented by: Magnesium Sulfate/Dextrose (Magnesium Sulfate / D5w) 1 gm in 100 mls @ 50 mls/hr IV ONE ONE Stop: 01/11/22 17:12 Last Infusion: 01/11/22 16:28 Dose: 50 mls/hr Documented by: Ipratropium [place] (Ipratropium [place] Neb Soln 0.02% 2.5 Ml Vial) 0.5 mg INH Q6R [facility] Stop: 02/08/22 00:59 Last Admin: 01/11/22 12:04 Dose: 0.5 mg Documented by: Levalbuterol HCl (Levalbuterol 1.25mg/0.5ml Neb) 1.25 mg INH Q6R [facility] Stop: 02/08/22 00:59 Last Admin: 01/11/22 12:05 Dose: Not Given Documented by: Multivitamins/Minerals (Cerovite Adv Formula Tab) 1 tab PO DAILY [facility] Stop: 02/08/22 08:59 Last Admin: 01/09/22 08:17 Dose: 1 tab Documented by: Nicotine Polacrilex (Nicotine Polacrilex 2 Mg Gum) 1 piece MT PRN PRN PRN Reason: smoke Stop: 02/08/22 15:04 Pantoprazole Sodium (Pantoprazole 40 Mg Tab) 40 mg PO QAM [facility] Stop: 02/08/22 08:59 Last Admin: 01/11/22 08:01 Dose: 40 mg Documented by: Prednisone (Prednisone 20 Mg Tab) 20 mg PO DAILY [facility] Stop: 01/13/22 08:59 Last Admin: 01/11/22 08:02 Dose: 20 mg Documented by: Saccharomyces Boulardii (Saccharomyces [place]oul[place]ii 250 Mg Cap) 250 mg PO DAILY [facility] Stop: 02/09/22 08:59 Last Admin: 01/11/22 08:01 Dose: 250 mg Documented by: Tramadol HCl (Tramadol Hcl 50 Mg Tablet) 25 mg PO Q4H PRN PRN Reason: Pain Stop: 02/07/22 22:22 Last Admin: 01/11/22 08:06 Dose: 25 mg Documented by: Umeclidinium [place] (Umeclidinium [place] 62.5mcg/Blister 7 Puffs/Inhaler) 1 puffs INH QAM [facility] Stop: 02/08/22 11:59 Last Admin: 01/11/22 08:02 Dose: 1 puffs Documented by: Zolpidem Tartrate (Zolpidem Tartrate 10 Mg Tab) 10 mg PO HS PRN PRN Reason: Insomnia Stop: 02/07/22 22:22 Last Admin: 01/10/22 23:08 Dose: 10 mg Documented by:
[2022-01-11] MEDS: ATORVASTATIN 10 MG TAB PO SCH (20:18)
[2022-01-11] MEDS: ZOLPIDEM TARTRATE 10 MG TAB PO PRN (23:30)
[2022-01-12] MEDS: IPRATROPIUM BROMIDE NEB SOLN 0.02% 2.5 ML VIAL INH SCH ×2 (00:18→06:57)
[2022-01-12] MEDS: LEVALBUTEROL 1.25MG/0.5ML NEB INH SCH ×2 (00:18→06:57)
[2022-01-12] MEDS: CEFEPIME 2,000 MG in SYRINGE 0 ML IV SCH ×2 (04:30→15:17)
[2022-01-12] MEDS: HEPARIN SOD 5,000 UNIT/0.5 ML VIAL SQ SCH ×2 (05:10→15:17)
[2022-01-12 07:24] LABS: BUN Creatinine Ratio 22.8 (10-20); Calcium 9.3 mg/dl (8.5-10.1); Creatinine Clr Calc Pharmacy 56.3 ml/min; Est GFR (African American) 108.1 ml/min; Est GFR (Non-African American) 93.3 ml/min; Magnesium 1.8 mg/dl (1.7-2.4); Potassium 3.9 mmol/L (3.5-5.1)
[2022-01-12] MEDS: predniSONE 20 MG TAB PO SCH (08:07)
[2022-01-12] MEDS: FLUTICASONE/VILANTEROL 100/25MCG 14 PUFFS/INHALER INH SCH (08:07)
[2022-01-12] MEDS: DOXYCYCLINE HYCLATE 100 MG CAP PO SCH (08:07)
[2022-01-12] MEDS: SACCHAROMYCES BOULARDII 250 MG CAP PO SCH (08:07)
[2022-01-12] MEDS: PANTOprazole 40 MG TAB PO SCH (08:07)
[2022-01-12] MEDS: UMECLIDINIUM BROMIDE 62.5MCG/BLISTER 7 PUFFS/INHALER INH SCH (08:08)
[2022-01-12] MEDS ORDERED: IPRATROPIUM BROMIDE NEB SOLN 0.02% 2.5 ML VIAL INH PRN (09:00)
[2022-01-12] MEDS ORDERED: LEVALBUTEROL 1.25MG/0.5ML NEB INH PRN (09:00)
[2022-01-12] MEDS: HYDROCODONE/ACETAMOPHEN 5/325MG TAB PO PRN ×2 (09:19→15:21)
--- NOTE | 2022-01-12 13:45 | Hospitalist Progress Note ---
Date of Service January 12, 2022 Assessment & Plan (1) Sepsis: Plan: Mrs Yany Maldonado is a 71 year old female with history of COPD (never seen Digital Printer), current smoker, AAA, migraine headache, PBC, fibromyalgia who presented to ER 01/08 for ongoing cough, shortness of breath after recently finishing a treatment course for CAP and COPD exacerbation. Cough, shortness of breath -Recently finished CAP treatment course with Augmentin -Procalcitonin 0.06 -She was started on levaquin for pseudomonas and atypical coverage and it appears she is improving. However, with her age and multiple comorbidities, she is at increased risk for AR from fluoroquinolone. Stopped Levaquin and instead started Cefepime and doxycyline. Sputum culture - light normal jona Sputum AFB smear negative AFB culture pending Plan to DC on cefpodoxime and Doxy COPD Emphysema -Was previously only on albuterol PRN -Appreciate Pulmonology input, started on maintenance inhaler - Incruse + Breo e llipta -She would benefit from formal PFTs after discharge -continue prednisone 20mg daily Current smoker -Ongoing smoking cessation education -Pt decided to quit smoking altogether -Nicotine supplement offered, for now pt declines Severe protein malnutrition -Appreciate RD input, diet liberalized to general to encourage oral intake DVT ppx SQ heparin Dispo: Plan to DC home today Admission and Anticipated Discharge Date Admission Date: January 08, 2022 Subjective Patient seen in follow-up of COPD exacerbation, pneumonia Currently patient sitting up in bed, in no acute distress She is on room air Reports improvement in cough, and sputum production, also says that sputum is not green anymore and more white Denies fevers, chills, chest pain, says shortness of breath is improved No abdominal pain, nausea vomiting Review of Systems Review of Systems: All systems reviewed & are unremarkable except as noted in Subjective Physical Exam Physical Exam: Physical Exam: thin, cachetic F i n no acute distres s Respiratory: poor airflow diffu sely, no wheezing/ rhonchi Cardiovascular:H regular rate and r hythm, no murmurs/ rubs/gallops Gastrointestinal ( Abdomen): soft, non tender, non distended Musculoskeletal: no edema, peripher al muscle wasting Neurologic: awake, alert, spon taneously moving e xtremities Results & Data Results & Data ([facility]) Vital Signs (Past 12 Hours) Vital Signs Temp Pulse Pulse Resp BP BP Pulse Ox 01/12/22 12:15 36.5 C 90 18 127/70 137/68 94 01/12/22 11:55 36.5 C 90 18 137/68 94 01/12/22 07:32 36.6 C 83 18 133/77 93 01/12/22 06:59 63 18 94 01/12/22 06:13 79 01/12/22 05:04 79 01/12/22 04:00 36.5 C 93 H 18 119/85 93 Laboratory Results 01/12/22 01/09/22 Range/Units 06:36 12:38 Sodium 137 (136-145) mmol/L Potassium 3.9 (3.5-5.1) mmol/L Chloride 102 (98-107) mmol/L Carbon Dioxide 28 (21-32) mmol/L Anion Gap 7 (3-11) BUN 13 (6-23) mg/dl Creatinine 0.57 L (0.6-1.2) mg/dl Est Cr Clr Drug Dosing 56.3 ml/min Est GFR ( Amer) 108.1 ml/min Est GFR (Non-Af Amer) 93.3 ml/min BUN/Creatinine Ratio 22.8 H (10-20) Glucose 106 H (70-99(Fasting)) mg/dl Calcium 9.3 (8.5-10.1) mg/dl Magnesium 1.8 (1.7-2.4) mg/dl Urine Legionella Ag SEE NOTE Medications Administered Current Inpatient Medications Acetaminophen (Acetaminophen 325 Mg Tab) 650 mg PO Q4H PRN PRN Reason: Pain or Fever Stop: 02/07/22 22:22 Hydrocodone Bitart/Acetaminophen (Hydrocodone/Acetamophen 5/325mg Tab) 1 tab PO TID PRN PRN Reason: Pain Stop: 01/22/22 22:22 Last Admin: 01/12/22 09:19 Dose: 1 tab Documented by: Atorvastatin Calcium (Atorvastatin 10 Mg Tab) 10 mg PO HS MONIQUE Stop: 02/07/22 22:22 Last Admin: 01/11/22 20:18 Dose: 10 mg Documented by: Carisoprodol (Carisoprodol 350 Mg Tablet) 350 mg PO TID PRN PRN Reason: Muscle Spasm Stop: 02/07/22 22:22 Doxycycline Hyclate (Doxycycline Hyclate 100 Mg Cap) 100 mg PO BID [facility] Stop: 01/16/22 20:59 Last Admin: 01/12/22 08:07 Dose: 100 mg Documented by: Fluticasone/Vilanterol (Fluticasone/Vilanterol 100/25mcg 14 Puffs/Inhaler) 1 puffs INH DAILY [facility] Stop: 02/08/22 11:59 Last Admin: 01/12/22 08:07 Dose: 1 puffs Documented by: Heparin Sodium (Porcine) (Heparin Sod 5,000 Unit/0.5 Ml Vial) 5,000 units SQ Q8 MONIQUE Stop: 02/07/22 22:22 Last Admin: 01/12/22 05:10 Dose: 5,000 units Documented by: Promethazine HCl 6.25 mg/ (Sodium Chloride) 50.25 mls @ 201 mls/hr IV Q6H PRN PRN Reason: Nausea And Vomiting Stop: 02/07/22 22:22 Cefepime HCl 2,000 mg/ Syringe 20 mls @ 5 mls/min IV Q12H [facility]; Protocol Stop: 01/16/22 15:29 Last Admin: 01/12/22 04:30 Dose: 5 mls/min Documented by: Ipratropium Marrero (Ipratropium Marrero Neb Soln 0.02% 2.5 Ml Vial) 0.5 mg INH Q6R PRN PRN Reason: Shortness Of Breath Or Wheezing Stop: 02/08/22 00:59 Levalbuterol HCl (Levalbuterol 1.25mg/0.5ml Neb) 1.25 mg INH Q6R PRN PRN Reason: Shortness Of Breath Or Wheezing Stop: 02/08/22 00:59 Multivitamins/Minerals (Cerovite Adv Formula Tab) 1 tab PO DAILY [facility] Stop: 02/08/22 08:59 Last Admin: 01/09/22 08:17 Dose: 1 tab Documented by: Nicotine Polacrilex (Nicotine Polacrilex 2 Mg Gum) 1 piece MT PRN PRN PRN Reason: smoke Stop: 02/08/22 15:04 Pantoprazole Sodium (Pantoprazole 40 Mg Tab) 40 mg PO QAM [facility] Stop: 02/08/22 08:59 Last Admin: 01/12/22 08:07 Dose: 40 mg Documented by: Prednisone (Prednisone 20 Mg Tab) 20 mg PO DAILY [facility] Stop: 01/13/22 08:59 Last Admin: 01/12/22 08:07 Dose: 20 mg Documented by: Saccharomyces Boulardii (Saccharomyces Boulardii 250 Mg Cap) 250 mg PO DAILY [facility] Stop: 02/09/22 08:59 Last Admin: 01/12/22 08:07 Dose: 250 mg Documented by: Tramadol HCl (Tramadol Hcl 50 Mg Tablet) 25 mg PO Q4H PRN PRN Reason: Pain Stop: 02/07/22 22:22 Last Admin: 01/11/22 08:06 Dose: 25 mg Documented by: Umeclidinium Marrero (Umeclidinium Marrero 62.5mcg/Blister 7 Puffs/Inhaler) 1 puffs INH QAM [facility] Stop: 02/08/22 11:59 Last Admin: 01/12/22 08:08 Dose: 1 puffs Documented by: Zolpidem Tartrate (Zolpidem Tartrate 10 Mg Tab) 10 mg PO HS PRN PRN Reason: Insomnia Stop: 02/07/22 22:22 Last Admin: 01/11/22 23:30 Dose: 10 mg Documented by:
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
== END 2022-01-12 15:52 | disposition home or self-care (01) | DRG 871 ==
LOC: ED 17:27 → 2N 20:50 → SUATTDRO 20:50 → 2N 21:55

== ENCOUNTER 2022-06-01 10:23 | Inpatient (IN) ==
--- NOTE | 2022-06-01 11:16 | Emergency Department Note ---
Impression & Plan Hypoxemia, Hypokalemia, Acute exacerbation of chronic obstructive pulmonary disease ED Provider Note NAME: AVE HAYWOOD AGE: 72 SEX: F : 1950 ARRIVES VIA: Ambulance INFORMANT: Patient, ED PROVIDER(S): Anish Armstrong MD Chief Complaint: Shortness of breath, rib pain HPI: Patient presents as she developed some posterior rib pain beginning this morning. The patient describes it as sharp and worsening with coughing or taking a big deep breath. The patient denies any falls or trauma. The patient does have a known history of COPD but does not use any medications on a regular basis and does follow with Dr. Stearns. The patient does not follow with a hand marker. The patient is still a smoker and does complain of intermittent productive cough sometimes clear but was recently green sputum. The patient does not wear oxygen at home. The patient was given fentanyl in route per EMS and did have some lower oxygen saturations at 88% was placed on nasal cannula. Patient denies any abdominal pain nausea vomiting. Patient [place] any fevers or chills. Patient states that the pain slightly improved with fentanyl but it has not improved. ROS: See HPI for pertinent positives and negatives. A total of 10 systems were reviewed and otherwise negative. Past medical history: See below Surgical history: See below Social history: See below Physical Exam: GENERAL: NAD, wearing a mask, non-toxic. Thin and emaciated in appearance, wearing glasses, nasal cannula in place. EYE EXAM: Normal conjunctiva. PERRL, no anisocoria and EOM's grossly intact w/o pain. NECK: Supple, no nuchal rigidity, no adenopathy, non-tender. No signs of meningismus. FROM of the neck with good chin to chest and neck extension. No stridor. LUNGS: Sonorous breath sounds, decreased breath sounds left chest, posterior left rib pain without obvious crepitus or flail chest. HEART: NSR, no MRG. ABDOMEN: Abdomen soft, non-tender, normo-active bowel sounds, no masses, no rebound or guarding. BACK: No CVA TTP. SKIN: No rashes and no bruising. UPPER EXTREMITIES: Upper extremities are grossly normal. LOWER EXTREMITIES: Grossly normal, no edema. NEURO EXAM: A&O x3, cranial nerves II-XII grossly intact, normal speech, moves all 4 extremities. Differential diagnoses: Reactive airway disease, pneumonia, pneumothorax, COPD, CHF, infections, cardiac ischemia, pulmonary embolism, musculoskeletal, gastrointestinal, as well as other pathologies. Course: Patient was seen and evaluated the bedside. Full history physical exam was performed. EKG interpreted by me Sinus with occasional PVC, rate of 89, normal intervals, normal axis, no ST elevations. Imaging Studies: See Below Cardiac monitoring: An order was placed for continuous cardiac monitoring. The monitor shows a rate of 88 with sinus rhythm. MDM: Patient was seen due to concern for rib pain with associated shortness of breath. Blood work is obtained and the patient was treated for COPD type symptoms. Patient was also ordered small amounts of morphine lidocaine patch and Tylenol to help with pain. Cough suppressant also ordered. Neb treatment also ordered. The patient's blood work shows a normal white count H&H and platelet count. The patient's kidney function is unremarkable. VBG shows chronic hypercarbia with compensated VBG pH is 7.38. Hypokalemia noted at 3.1. The patient's mag is elevated at 2.5. Patient's troponin is not elevated. Procalcitonin is not elevated. The chest x-ray shows no pneumothorax or left-sided rib fractures. The patient does have a nodular opacity over the left lower lung. EKG shows no ST elevations. Patient was reassessed is still had some pain but was informed of her findings. The patient stated that she wanted to try and go home. The patient was trialed off oxygen but was still hypoxemic 8788%. This was after the patient had received a neb treatment and steroids. Given this do believe the patient would benefit from inpatient treatment at this time. I did speak with the on-call hospitalist and he HADLEY Prince and the patient was admitted by Dr. White. Critical Care: I have personally spent 35 minutes of critical care time in direct management of this patient. This includes bedside care, interpretation of diagnostic studies, and testing, discussion with consultants, patient, and family members, and other require inpatient management activities. This 35 minutes is in excess of all separately billable procedures. Past Med/Surg History Medical History AAA (abdominal aortic aneurysm) without rupture COPD (chronic obstructive pulmonary disease) Fibromyalgia Hematuria Hyperlipidemia Lumbar disc disease Migraine Osteoporosis Tobacco use Surgical History History of tonsillectomy and adenoidectomy Family History Father FH: glaucoma Social History Smoking Status: Current every day smoker Tobacco Type: Cigarettes Cigarettes Per Day: 8; Second Hand Exposure: Yes; Hx Alcohol Use: No Hx Substance Use: No Preferred Language: Sinhala 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 Ability: Effective Field Rep Required: No Beliefs That Will Affect Care: None marital status: / Current Living Situation Comment: Lives with son Feels Safe at Home: Yes Assistive Devices: None Allergies Allergies Allergy/AdvReac Type Severity Reaction Status Date / Time sumatriptan [From Imitrex] Allergy Severe stopped Verified 01/23/22 10:54 breathing as per px Home Meds Home Medications Medication Instructions Recorded Confirmed albuterol sulfate 90 mcg/actuation 1 puff inhalation QID PRN Wheezing 04/22/20 06/01/22 aerosol inhaler alendronate 70 mg tablet 70 mg PO WK 04/22/20 06/01/22 butalbital 50 mg-acetaminophen 325 1 cap PO Q6H PRN Migraine Headache 04/22/20 06/01/22 mg-caffeine 40 mg-codeine 30 mg cap calcium carbonate 600 mg-vitamin 1 cap PO BID 04/22/20 06/01/22 D3 5 mcg (200 unit) capsule (Calcium 600 + D(3)) carisoprodol 350 mg tablet 350 mg PO TID PRN Muscle Spasm 04/22/20 06/01/22 cholecalciferol (vitamin D3) 25 25 mcg PO DAILY 04/22/20 06/01/22 mcg (1,000 unit) tablet (Vitamin D3) multivit,[id number] 1 tab PO DAILY 04/22/20 06/01/22 13.5 mg-200 mcg-250 mcg tablet ([facility]) omeprazole 20 mg capsule,delayed 20 mg PO QAM 04/22/20 06/01/22 release zolpidem 10 mg tablet 10 mg PO HS 04/22/20 06/01/22 aspirin 81 mg tablet,delayed 81 mg PO DAILY 06/01/22 06/01/22 release atorvastatin 20 mg tablet 20 mg PO DAILY 06/01/22 06/01/22 Previous Rx's Medication Instructions Recorded fluticasone furoate 100 1 ea inhalation DAILY #60 ea 01/12/22 mcg-vilanterol 25 mcg/dose inhalation powder (Breo Ellipta) umeclidinium 62.5 mcg/actuation 1 inh inhalation QAM #30 ea 01/12/22 blister powder for inhalation (Incruse Ellipta) Results & Data (ED) Vital Signs Vital Signs - 24 hr 06/01/22 10:41 06/01/22 10:30 06/01/22 10:40 Temperature 36.9 C Temperature Source Oral Pulse Rate 96 H 107 H 94 H Pulse Rate from SpO2 Sensor 100 H 86 Respiratory Rate 22 24 21 Blood Pressure 179/97 H Blood Pressure Mean 124 Pulse Oximetry 100 91 99 Oxygen Delivery Method Nasal Cannula Oxygen Flow Rate 2 Sepsis Recent Fever Within 48 Hours No Sepsis New/Unexplained Change in Mental Status No Sepsis Action Taken by Nursing No Action Required 06/01/22 10:50 06/01/22 11:00 06/01/22 11:10 Temperature Temperature Source Pulse Rate 91 H 91 H 90 Pulse Rate from SpO2 Sensor 88 87 88 Respiratory Rate 20 17 22 Blood Pressure Blood Pressure Mean Pulse Oximetry 100 97 97 Oxygen Delivery Method Oxygen Flow Rate Sepsis Recent Fever Within 48 Hours Sepsis New/Unexplained Change in Mental Status Sepsis Action Taken by Nursing 06/01/22 11:20 06/01/22 11:30 06/01/22 11:40 Temperature Temperature Source Pulse Rate 83 93 H 95 H Pulse Rate from SpO2 Sensor 83 Respiratory Rate 21 14 21 Blood Pressure Blood Pressure Mean Pulse Oximetry 98 Oxygen Delivery Method Oxygen Flow Rate Sepsis Recent Fever Within 48 Hours Sepsis New/Unexplained Change in Mental Status Sepsis Action Taken by Nursing 06/01/22 11:50 06/01/22 12:00 06/01/22 12:10 Temperature Temperature Source Pulse Rate 86 82 80 Pulse Rate from SpO2 Sensor Respiratory Rate 27 H 19 20 Blood Pressure Blood Pressure Mean Pulse Oximetry Oxygen Delivery Method Oxygen Flow Rate Sepsis Recent Fever Within 48 Hours Sepsis New/Unexplained Change in Mental Status Sepsis Action Taken by Nursing 06/01/22 12:20 06/01/22 12:30 06/01/22 12:54 Temperature Temperature Source Pulse Rate 73 78 Pulse Rate from SpO2 Sensor 93 H Respiratory Rate 21 20 Blood Pressure Blood Pressure Mean Pulse Oximetry 90 Oxygen Delivery Method Oxygen Flow Rate Sepsis Recent Fever Within 48 Hours Sepsis New/Unexplained Change in Mental Status Sepsis Action Taken by Nursing 06/01/22 13:00 06/01/22 13:10 06/01/22 13:19 Temperature Temperature Source Pulse Rate 85 84 Pulse Rate from SpO2 Sensor 90 83 83 Respiratory Rate 16 21 Blood Pressure Blood Pressure Mean Pulse Oximetry 95 95 Oxygen Delivery Method Oxygen Flow Rate Sepsis Recent Fever Within 48 Hours Sepsis New/Unexplained Change in Mental Status Sepsis Action Taken by Nursing 06/01/22 13:19 06/01/22 13:20 06/01/22 13:30 Temperature Temperature Source Pulse Rate 83 Pulse Rate from SpO2 Sensor 83 Respiratory Rate 23 Blood Pressure 127/68 139/67 Blood Pressure Mean 87 91 Pulse Oximetry 95 Oxygen Delivery Method Oxygen Flow Rate Sepsis Recent Fever Within 48 Hours Sepsis New/Unexplained Change in Mental Status Sepsis Action Taken by Nursing 06/01/22 13:30 06/01/22 13:40 06/01/22 13:50 Temperature Temperature Source Pulse Rate 90 85 86 Pulse Rate from SpO2 Sensor 87 82 89 Respiratory Rate 16 19 20 Blood Pressure Blood Pressure Mean Pulse Oximetry 96 95 95 Oxygen Delivery Method Nasal Cannula Oxygen Flow Rate 2 Sepsis Recent Fever Within 48 Hours Sepsis New/Unexplained Change in Mental Status Sepsis Action Taken by Nursing 06/01/22 14:00 06/01/22 14:00 06/01/22 14:10 Temperature Temperature Source Pulse Rate 84 93 H Pulse Rate from SpO2 Sensor 81 89 Respiratory Rate 19 20 Blood Pressure 124/70 Blood Pressure Mean 88 Pulse Oximetry 94 93 Oxygen Delivery Method Nasal Cannula Oxygen Flow Rate 2 Sepsis Recent Fever Within 48 Hours Sepsis New/Unexplained Change in Mental Status Sepsis Action Taken by Nursing 06/01/22 14:20 06/01/22 14:30 06/01/22 14:30 Temperature Temperature Source Pulse Rate 83 85 Pulse Rate from SpO2 Sensor 83 84 Respiratory Rate 16 24 Blood Pressure 140/69 Blood Pressure Mean 92 Pulse Oximetry 86 L 87 L Oxygen Delivery Method Room Air Room Air Oxygen Flow Rate Sepsis Recent Fever Within 48 Hours Sepsis New/Unexplained Change in Mental Status Sepsis Action Taken by Nursing 06/01/22 14:44 Temperature Temperature Source Pulse Rate 88 Pulse Rate from SpO2 Sensor 82 Respiratory Rate 25 H Blood Pressure Blood Pressure Mean Pulse Oximetry 88 L Oxygen Delivery Method Room Air Oxygen Flow Rate Sepsis Recent Fever Within 48 Hours Sepsis New/Unexplained Change in Mental Status Sepsis Action Taken by Group Home Medications Current Medication List: was personally reviewed by me Laboratory Data Attestation: I reviewed the patient's lab results. Result diagrams: 06/01/22 12:54 06/01/22 12:54 Lab Results 06/01/22 06/01/22 06/01/22 Range/Units 12:15 12:54 12:54 WBC 10.20 (4.8-10.8) K/ul RBC 4.49 (3.93-5.22) M/uL Hgb 14.0 (12.0-16.0) g/dl Hct 41.4 (34.1-44.9) % MCV 92.2 (80.0-100.0) fL MCH 31.2 (25.0-34.0) pg MCHC 33.8 (32.0-36.0) g/dL RDW Std Deviation 44.2 (36.4-46.3) fL RDW Coeff of Nakul 13.1 (11.5-14.5) % Plt Count 255 (130-400) K/uL MPV 9.7 (9.4-12.3) fL Immature Gran % (Auto) 0.2 % Neut % (Auto) 76.2 % Lymph % (Auto) 14.1 % [place] % (Auto) 8.8 % Eos % (Auto) 0.3 % Baso % (Auto) 0.4 % Neut # (Auto) 7.77 H (1.4-6.5) K/uL Lymph # (Auto) 1.44 (1.2-3.4) K/uL [place] # (Auto) 0.90 H (0.24-0.82) K/uL Eos # (Auto) 0.03 (0-0.50) K/uL Baso # (Auto) 0.04 (0-0.2) K/uL Immature Gran # (Auto) 0.02 (0.00-0.02) K/uL PT (9.0-12.0) Seconds INR (0.9-1.1) APTT (21.0-31.0) Seconds PTT Ratio VBG pH (7.36-7.41) VBG pCO2 (38-50) mmHg VBG pO2 mmHg VBG HCO3 mmol/L VBG O2 Saturation % VBG Base Excess mEq/L Sodium (136-145) mmol/L Potassium (3.5-5.1) mmol/L Chloride (98-107) mmol/L Carbon Dioxide (21-32) mmol/L Anion Gap (3-11) BUN (6-23) mg/dl Creatinine (0.6-1.2) mg/dl Est Cr Clr Drug Dosing ml/min Est GFR ( Amer) ml/min Est GFR (Non-Af Amer) ml/min BUN/Creatinine Ratio (10-20) Glucose (70-99(Fasting)) mg/dl Calcium (8.5-10.1) mg/dl Magnesium (1.7-2.4) mg/dl Total Bilirubin (0.2-1.0) mg/dl AST (13-39) U/L ALT (7-52) U/L Alkaline Phosphatase (34-104) U/L Troponin I High Sens (0-14) pg/ml Total Protein (6.0-8.3) gm/dl Albumin (3.4-5.0) gm/dl Globulin (2.5-4.0) gm/dl Albumin/Globulin Ratio (0.9-2) Procalcitonin < 0.05 (0-0.5) ng/ml SARS-CoV-2, RNA, NAAT NEGATIVE (NEGATIVE) 06/01/22 06/01/22 06/01/22 Range/Units 12:54 12:54 12:54 WBC (4.8-10.8) K/ul RBC (3.93-5.22) M/uL Hgb (12.0-16.0) g/dl Hct (34.1-44.9) % MCV (80.0-100.0) fL MCH (25.0-34.0) pg MCHC (32.0-36.0) g/dL RDW Std Deviation (36.4-46.3) fL RDW Coeff of Nakul (11.5-14.5) % Plt Count (130-400) K/uL MPV (9.4-12.3) fL Immature Gran % (Auto) % Neut % (Auto) % Lymph % (Auto) % [place] % (Auto) % Eos % (Auto) % Baso % (Auto) % Neut # (Auto) (1.4-6.5) K/uL Lymph # (Auto) (1.2-3.4) K/uL [place] # (Auto) (0.24-0.82) K/uL Eos # (Auto) (0-0.50) K/uL Baso # (Auto) (0-0.2) K/uL Immature Gran # (Auto) (0.00-0.02) K/uL PT 9.8 (9.0-12.0) Seconds INR 0.9 (0.9-1.1) APTT 25.1 (21.0-31.0) Seconds PTT Ratio 0.9 VBG pH 7.38 (7.36-7.41) VBG pCO2 59 H (38-50) mmHg VBG pO2 26 mmHg VBG HCO3 35 mmol/L VBG O2 Saturation < 60.0 % VBG Base Excess 7.7 mEq/L Sodium 143 (136-145) mmol/L Potassium 3.1 L (3.5-5.1) mmol/L Chloride 104 (98-107) mmol/L Carbon Dioxide 32 (21-32) mmol/L Anion Gap 7 (3-11) BUN 7 (6-23) mg/dl Creatinine 0.65 (0.6-1.2) mg/dl Est Cr Clr Drug Dosing 55.5 ml/min Est GFR ( Amer) 102.8 ml/min Est GFR (Non-Af Amer) 88.7 ml/min BUN/Creatinine Ratio 10.8 (10-20) Glucose 123 H (70-99(Fasting)) mg/dl Calcium 9.4 (8.5-10.1) mg/dl Magnesium 2.5 H (1.7-2.4) mg/dl Total Bilirubin 0.5 (0.2-1.0) mg/dl AST 21 (13-39) U/L ALT 17 (7-52) U/L Alkaline Phosphatase 108 H (34-104) U/L Troponin I High Sens 9.3 (0-14) pg/ml Total Protein 6.4 (6.0-8.3) gm/dl Albumin 3.8 (3.4-5.0) gm/dl Globulin 2.6 (2.5-4.0) gm/dl Albumin/Globulin Ratio 1.5 (0.9-2) Procalcitonin (0-0.5) ng/ml SARS-CoV-2, RNA, NAAT (NEGATIVE) Administered Medications Discontinued Medications Acetaminophen (Acetaminophen 500 Mg Tab) 1,000 mg PO NOW STA Stop: 06/01/22 11:26 Last Admin: 06/01/22 11:55 Dose: 1,000 mg Documented By: [id number] Albuterol (Albut/Ipratrop 3mg/0.5mg Neb 3 Ml Vial) 3 ml NEB NOW STA; Protocol Stop: 06/01/22 11:26 Last Admin: 06/01/22 12:05 Dose: 3 ml Documented By: [id number] Benzonatate (Benzonatate 100 Mg Capsule) 100 mg PO NOW ONE Stop: 06/01/22 11:31 Last Admin: 06/01/22 11:55 Dose: 100 mg Documented By: [id number] Sodium Chloride (Nss) 500 mls @ 999 mls/hr IV .Q31M STA Stop: 06/01/22 11:55 Last Infusion: 06/01/22 13:15 Dose: 0 mls/hr Documented By: [id number] Admin: 06/01/22 12:01 Dose: 999 mls/hr Documented By: [id number] Magnesium Sulfate/Dextrose (Magnesium Sulfate / D5w) 1 gm in 100 mls @ 100 mls/hr IV Q1H MONIQUE Stop: 06/01/22 13:29 Last Infusion: 06/01/22 14:23 Dose: 0 mls/hr Documented By: [id number] Admin: 06/01/22 13:02 Dose: 100 mls/hr Documented By: [id number] Infusion: 06/01/22 12:59 Dose: 100 mls/hr Documented By: [id number] Admin: 06/01/22 11:59 Dose: 100 mls/hr Documented By: [id number] Potassium Chloride ([place] / Wtr) 10 meq in 100 mls @ 100 mls/hr IV Q1H MONIQUE Stop: 06/01/22 17:14 Last Admin: 06/01/22 15:55 Dose: 100 mls/hr Documented By: [id number] Ioversol (Optiray 300 500ml) 113 ml IV ONCE ONE Stop: 06/01/22 16:50 Last Admin: 06/01/22 16:52 Dose: 113 ml Documented By: [id number] Lidocaine (Lidocaine 5% 1 Patch) 1 patch TD NOW STA Stop: 06/01/22 11:26 Last Admin: 06/01/22 12:05 Dose: 1 patch Documented By: [id number] Methylprednisolone (Methylprednisolone 125 Mg/2 Ml Vial) 60 mg IV NOW STA Stop: 06/01/22 11:26 Last Admin: 06/01/22 11:58 Dose: 60 mg Documented By: [id number] Morphine Sulfate (Morphine Sulfate 2 Mg/Ml Carp) 2 mg IV NOW STA Stop: 06/01/22 11:26 Last Admin: 06/01/22 11:54 Dose: 2 mg Documented By: [id number] Potassium Chloride (Potassium Chloride Crtab 20 Meq Tabcr) 20 meq PO NOW STA Stop: 06/01/22 15:08 Last Admin: 06/01/22 15:53 Dose: 20 meq Documented By: [id number] Imaging Data Radiologist's Impression: Ribs w/Chest X-Ray 06/01/22 11:25 XR ribs LT min 2V w CXR1V CLINICAL HISTORY: posterior rib pain, copd/sob COMPARISON: Chest radiograph and chest CT January 08, 2022. FINDINGS: No pneumothorax or pleural effusion is noted. Lung hyperinflation is noted. A 1.9 cm nodular density projects over the left lower lung. No acute left-sided rib fractures are identified. Cardiac size is normal. Mediastinal contours are normal. Severe emphysema is present. IMPRESSION: 1. No pneumothorax. No acute left-sided rib fractures. 2. Emphysema. 3. 1.9 cm nodular opacity which projects over the left lower lung. This could be related to the left nipple or minimal airspace disease. However, a nonemergent chest CT is recommended to exclude a pulmonary nodule. ACT 112: Negative or not required by law. Electronically signed by: Rajesh Howe M.D. 06/01/2022 1:30 PM Discharge Plan Visit Data Chief Complaint: Rib Injury/Pain Stated Complaint: L RIB PAIN WITH SOB ED Provider: Anish Armstrong Discharge Problem: Hypoxemia, Hypokalemia, Acute exacerbation of chronic obstructive pulmonary disease Patient Disposition: Admitted As Inpatient Discharge Instructions Interventions: ED Discharge Assessment Last Done: 06/01/22 16:52
[2022-06-01] MEDS ORDERED: MoRPHine SULFATE 2 MG/ML CARP IV STA (11:25)
[2022-06-01] MEDS ORDERED: SODIUM CHLORIDE 0.9% 500 ML IV STA (11:25)
[2022-06-01] MEDS ORDERED: methylPREDNISolone 125 MG/2 ML VIAL IV STA (11:25)
[2022-06-01] MEDS ORDERED: ACETAMINOPHEN 500 MG TAB PO STA (11:25)
[2022-06-01] MEDS ORDERED: LIDOCAINE 5% 1 PATCH TD STA (11:25)
[2022-06-01] MEDS ORDERED: ALBUT/IPRATROP 3MG/0.5MG NEB 3 ML VIAL NEB STA (11:25)
[2022-06-01] MEDS ORDERED: BENZONATATE 100 MG CAPSULE PO ONE (11:30)
[2022-06-01] MEDS: MAGNESIUM SULFATE / D5W 1 GM/100 ML BAG IV SCH ×2 (11:59→13:02)
[2022-06-01 13:07] LABS: Base Excess VBG 7.7 mEq/L; HCO3 VBG 35 mmol/L; Oxygen Saturation VBG < 60.0 %; PCO2 VBG 59 mmHg (38-50); PO2 VBG 26 mmHg; pH VBG 7.38 (7.36-7.41)
[2022-06-01 13:08] LABS: Basophils # (auto) 0.04 K/uL (0-0.2); Basophils % (auto) 0.4 %; Eosinophils # (auto) 0.03 K/uL (0-0.50); Eosinophils % (auto) 0.3 %; Hematocrit (blood only) 41.4 % (34.1-44.9); Immature Granulocytes # (auto) 0.02 K/uL (0.00-0.02); Immature Granulocytes % (auto) 0.2 %; Lymphocytes # (auto) 1.44 K/uL (1.2-3.4); Lymphocytes % (auto) 14.1 %; Mean Corpuscular Hemoglobin 31.2 pg (25.0-34.0); Mean Corpuscular Hgb Conc 33.8 g/dL (32.0-36.0); Mean Corpuscular Volume 92.2 fL (80.0-100.0); Mean Platelet Volume 9.7 fL (9.4-12.3); Monocytes % (auto) 8.8 %; Neutrophils # (auto) 7.77 K/uL (1.4-6.5); Neutrophils % (auto) 76.2 %; Platelet Count 255 K/uL (130-400); RDW Coefficient of Variation 13.1 % (11.5-14.5); RDW Standard Deviation 44.2 fL (36.4-46.3); Red Blood Count 4.49 M/uL (3.93-5.22)
[2022-06-01 13:20] LABS: INR 0.9 (0.9-1.1); Partial Thromboplastin Ratio 0.9; Partial Thromboplastin Time 25.1 Seconds (21.0-31.0); Prothrombin Time 9.8 Seconds (9.0-12.0)
--- NOTE | 2022-06-01 13:31 | XRay Report ---
XR ribs LT min 2V w CXR1V CLINICAL HISTORY: posterior rib pain, copd/sob COMPARISON: Chest radiograph and chest CT January 08, 2022. FINDINGS: No pneumothorax or pleural effusion is noted. Lung hyperinflation is noted. A 1.9 cm nodul ar density projects over the left lower lung. No acute left-sided rib fractures are identified. Cardi ac size is normal. Mediastinal contours are normal. Severe emphysema is present. IMPRESSION: 1. No pneumothorax. No acute left-sided rib fractures. 2. Emphysema. 3. 1.9 cm nodular opacity which projects over the left lower lung. This could be related to the left nipple or minimal airspace disease. However, a nonemergent chest CT is recommended to exclude a pulmo nary nodule. ACT 112: Negative or not required by law. Electronically signed by: Rajesh Howe M.D. 06/01/2022 1:30 PM
[2022-06-01 13:48] LABS: Albumin Globulin Ratio 1.5 (0.9-2); Albumin Level 3.8 gm/dl (3.4-5.0); BUN Creatinine Ratio 10.8 (10-20); Bilirubin,Total 0.5 mg/dl (0.2-1.0); Calcium 9.4 mg/dl (8.5-10.1); Creatinine Clr Calc Pharmacy 55.5 ml/min; Est GFR (African American) 102.8 ml/min; Est GFR (Non-African American) 88.7 ml/min; Globulin 2.6 gm/dl (2.5-4.0); Magnesium 2.5 mg/dl (1.7-2.4); Potassium 3.1 mmol/L (3.5-5.1); Total Protein 6.4 gm/dl (6.0-8.3)
[2022-06-01 13:54] LABS: Troponin I High Sensitivity 9.3 pg/ml (0-14)
[2022-06-01] MEDS ORDERED: POTASSIUM CHLORIDE CRTAB 20 MEQ TABCR PO STA (15:07)
--- NOTE | 2022-06-01 15:11 | History & Physical Report ---
Date of Service June 01, 2022 Assessment & Plan (1) Hypoxia: (2) Rib pain on left side: Plan: Patient is 72 y/o F with PMH COPD, tobacco use, arthritis, osteoporosis, chronic back pain, HLD, AAA, GERD, migraine presented to ER with c/o left posterior rib pain x 1 day started while sitting and twisted with sudden onset of pain aggravated with any movement and deep inspiration. Feels SOB when pain increases. Today EMS initial evaluation with O2 sat of 95% on RA. She was given Fentanyl 50mcg by EMS with repeat O2 sat of 88% and was placed on 2L oxygen via NC. In ER afebrile, P: 107 down to 84, R: 22 down to 16, BP: 179/97, 100% on 2L via NC and 87% on RA. No leukocytosis, negative procalcitonin, negative SARS-CoV-2 rapid test, negative high sensitivity troponin. EKG sinus rhythm without acute ST elevation Left Rib/CXR: No pneumothorax. No acute left-sided rib fractures. Emphysema. 1.9 cm nodular opacity which projects over the left lower lung. This could be related to the left nipple or minimal airspace disease. In ER was given Tylenol, albuterol neb, Tessalon Perles, magnesium sulfate 1gm, Solu-medrol 60mg IV, morphine 2mg, 500ml NSS DDX: Rib fracture, PE, musculoskeletal etiology, ACS, COPD exacerbation Obtain CTA chest to r/o PE or occult rib fracture Hypoxia may be secondary to narcotics, vs respiratory splinting Scheduled Tylenol, lidocaine patch and oxycodone prn pain Trend troponin EKG in am Incentive spirometer CBC, BMP in am (3) COPD (chronic obstructive pulmonary disease): Plan: No fever/chills, increased cough or sputum production No infiltrate on CXR and negative procalcitonin Low suspicion for COPD exacerbation at this time Monitor and if worsening consider adding additional steroids and/or antibiotics Albuterol neb prn Restart Breo, Incruse Ellipta that pt stopped taking at home (4) Hypokalemia: Plan: K: 3.1. magnesium: 2.5 Replace and monitor Repeat BMP and magnesium tonight (5) Abnormal CXR: Plan: 1.9 cm nodular opacity which projects over the left lower lung. This could be related to the left nipple or minimal airspace disease. CT chest pending to further assess (6) Hyperlipidemia: Plan: Continue atorvastatin (7) Arthritis: (8) Fibromyalgia: Plan: Chronic back pain Continue carisoprodol as needed (9) Low BMI: Plan: BMI: 16.5 (10) Tobacco use: Plan: Stopped smoking several months ago and unfortunately resumed smoking recently Smoking cessation encouraged Denies nicotine patch (11) Osteoporosis: Plan: On alendronate (12) AAA (abdominal aortic aneurysm) without rupture: Plan: 2.[address] scan on 2019 DVT Prophylaxis Heparin SQ DNR/DNI as per discussion with pt Follows with Dr Stearns for routine care Pt was seen and care coordinated with Dr White. See addendum History of Present Illness Chief Complaint: Rib pain Primary Care Provider: Nick Stearns DO Patient is 72 y/o F with PMH COPD, tobacco use, arthritis, osteoporosis, chronic back pain, HLD, AAA, GERD, migraine presented to ER with c/o left posterior rib pain x 1 day. History obtained from patient and chart review. Patient states last night started with left rib/back pain/left shoulder blade that started when she was sitting talking on phone and slightly twisted and had sudden onset of pain. Pain aggravated with movement and deep inspiration. Reports feels SOB when gets the stabbing pain sensation when she moves. Denies other chest pain. Denies any known injury or trauma. Has chronic back pain and uses Soma as needed and in past used hydrocodone in past but hasn't used recently. Has chronic cough productive of white sputum. She denies any increased cough or increased sputum production. History hospitalization in 01/08/22-01/12/22 for COPD exacerbation and had stopped smoking for a couple of months. Started smoking again recently after the of her . Smoking less than pack a day, was previously smoking 1.5ppd. Was discharged on Breo, Incruse Ellipta and was taking them however stopped using shortly after. She followed up initially with Dr Gay with pulmonology however did not keep her follow up appointment in 04/2022. Today EMS initial evaluation with O2 sat of 95% on RA. She was given Fentanyl 50mcg by EMS with repeat O2 sat of 88% and was placed on 2L oxygen via NC. Denies fever/chills, diaphoresis, N/V/D/C, BAIN, dizziness, syncope, vision changes, neck pain, orthopnea, palpitations, hemoptysis, sore throat, choking, otalgia, rhinorrhea, abdominal pain, paresthesias, weakness, extremity weakness, extremity edema, rashes, urinary symptoms. In ER left rib/CXR without infiltrate or rib fracture noted. She was noted to be hypoxic on RA at 87% improved on 1L oxygen via NC to 91%. Allergies Allergy/AdvReac Type Severity Reaction Status Date / Time sumatriptan [From Imitrex] Allergy Severe stopped Verified 01/23/22 10:54 breathing as per px Home Medications Medication Instructions Recorded Confirmed Type albuterol sulfate 90 mcg/actuation 1 puff inhalation QID PRN Wheezing 04/22/20 06/01/22 History aerosol inhaler alendronate 70 mg tablet 70 mg PO WK 04/22/20 06/01/22 History butalbital 50 mg-acetaminophen 325 1 cap PO Q6H PRN Migraine Headache 04/22/20 06/01/22 History mg-caffeine 40 mg-codeine 30 mg cap calcium carbonate 600 mg-vitamin 1 cap PO BID 04/22/20 06/01/22 History D3 5 mcg (200 unit) capsule (Calcium 600 + D(3)) carisoprodol 350 mg tablet 350 mg PO TID PRN Muscle Spasm 04/22/20 06/01/22 History cholecalciferol (vitamin D3) 25 25 mcg PO DAILY 04/22/20 06/01/22 History mcg (1,000 unit) tablet (Vitamin D3) multivit,[id number] 1 tab PO DAILY 04/22/20 06/01/22 History 13.5 mg-200 mcg-250 mcg tablet ([facility]) omeprazole 20 mg capsule,delayed 20 mg PO QAM 04/22/20 06/01/22 History release zolpidem 10 mg tablet 10 mg PO HS 04/22/20 06/01/22 History fluticasone furoate 100 1 ea inhalation DAILY #60 ea 01/12/22 06/01/22 Rx mcg-vilanterol 25 mcg/dose inhalation powder (Breo Ellipta) umeclidinium 62.5 mcg/actuation 1 inh inhalation QAM #30 ea 01/12/22 06/01/22 Rx blister powder for inhalation (Incruse Ellipta) aspirin 81 mg tablet,delayed 81 mg PO DAILY 06/01/22 06/01/22 History release atorvastatin 20 mg tablet 20 mg PO DAILY 06/01/22 06/01/22 History Past Med/Surg History Medical History AAA (abdominal aortic aneurysm) without rupture COPD (chronic obstructive pulmonary disease) Fibromyalgia Hematuria Hyperlipidemia Lumbar disc disease Migraine Osteoporosis Tobacco use Surgical History History of tonsillectomy and adenoidectomy Family History Father FH: glaucoma Social History Smoking Status: Current every day smoker Tobacco Type: Cigarettes Cigarettes Per Day: 8; Second Hand Exposure: Yes; Hx Alcohol Use: No Hx Substance Use: No Preferred Language: Estonian 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 Ability: Effective [employer]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 Beliefs That Will Affect Care: None marital status: / Current Living Situation Comment: Lives with son Feels Safe at Home: Yes Assistive Devices: None Review of Systems Review of Systems: All systems reviewed & are unremarkable except as noted in HPI & below Physical Exam Physical Exam: General: no acute distress, thin, frail elderly female Head: normocephalic, atraumatic Eyes: conjunctiva non-injected, anicteric ENT: normal inspection external ears, nose, mucous membranes moist Neck: supple, trachea midline Lungs: diminished throughout, no respiratory distress, no wheezing/rhonchi/rales Chest wall: +tenderness to palpation left posterior ribs, +tenderness distal scapula. No skin discolorations noted. Back: no spinous process tenderness to palpation, +kyphotic CV: RRR, no murmur, no pretibial edema Abd: normal BS, soft, non-tender Ext: no cyanosis, no calf tenderness Neuro: A&O x 3, no focal deficits noted, normal affect Skin: warm, dry Results & Data Results & Data ([facility]) Vital Signs (Past 12 Hours) Vital Signs Temp Pulse Resp BP Pulse Ox O2 Del Method O2 Flow Rate 06/01/22 14:44 88 25 H 88 L Room Air 06/01/22 14:30 85 24 87 L Room Air 06/01/22 14:30 140/69 06/01/22 14:20 83 16 86 L Room Air 06/01/22 14:10 93 H 20 93 06/01/22 14:00 84 19 94 Nasal Cannula 2 06/01/22 14:00 124/70 06/01/22 13:50 86 20 95 06/01/22 13:40 85 19 95 Nasal Cannula 2 06/01/22 13:30 90 16 96 06/01/22 13:30 139/67 06/01/22 13:20 83 23 95 06/01/22 13:19 127/68 06/01/22 13:19 84 21 95 06/01/22 13:10 85 16 95 06/01/22 12:54 90 06/01/22 12:30 78 20 06/01/22 12:20 73 21 06/01/22 12:10 80 20 06/01/22 12:00 82 19 06/01/22 11:50 86 27 H 06/01/22 11:40 95 H 21 06/01/22 11:30 93 H 14 06/01/22 11:20 83 21 98 06/01/22 11:10 90 22 97 06/01/22 11:00 91 H 17 97 06/01/22 10:50 91 H 20 100 06/01/22 10:40 94 H 21 99 06/01/22 10:30 107 H 24 91 06/01/22 10:41 36.9 C 96 H 22 179/97 H 100 Nasal Cannula 2 Laboratory Results Short CBC 06/01/22 Range/Units 12:54 WBC 10.20 (4.8-10.8) K/ul Hgb 14.0 (12.0-16.0) g/dl Hct 41.4 (34.1-44.9) % Plt Count 255 (130-400) K/uL BMP 06/01/22 12:54 Sodium 143 Potassium 3.1 L Chloride 104 Carbon Dioxide 32 BUN 7 Creatinine 0.65 Glucose 123 H Calcium 9.4 Liver Function 06/01/22 Range/Units 12:54 Total Bilirubin 0.5 (0.2-1.0) mg/dl AST 21 (13-39) U/L ALT 17 (7-52) U/L Alkaline Phosphatase 108 H (34-104) U/L Albumin 3.8 (3.4-5.0) gm/dl Diagnostic Findings Ribs w/Chest X-Ray 06/01/22 11:25 XR ribs LT min 2V w CXR1V CLINICAL HISTORY: posterior rib pain, copd/sob COMPARISON: Chest radiograph and chest CT January 08, 2022. FINDINGS: No pneumothorax or pleural effusion is noted. Lung hyperinflation is noted. A 1.9 cm nodular density projects over the left lower lung. No acute left-sided rib fractures are identified. Cardiac size is normal. Mediastinal contours are normal. Severe emphysema is present. IMPRESSION: 1. No pneumothorax. No acute left-sided rib fractures. 2. Emphysema. 3. 1.9 cm nodular opacity which projects over the left lower lung. This could be related to the left nipple or minimal airspace disease. However, a nonemergent chest CT is recommended to exclude a pulmonary nodule. ACT 112: Negative or not required by law. Electronically signed by: Rajesh Howe M.D. 06/01/2022 1:30 PM Supervising Physician Co-Signing Physician Notes Pt seen and examined by me, care coordinated w/ Lianna Prince PA-C, pls refer to her note above for further detail. Pt is 72 y/o F w/ COPD, tobacco use, arthritis, osteoporosis, chronic back pain, HLD, AAA, GERD, migraine who presents w/ left posterior rib pain x 1 day. Pain aggravated with movement and deep inspiration. Denies any other chest pain. Has chronic back pain and uses Soma as needed and in past used hydrocodone in past but hasn't used recently. Has chronic cough productive of white sputum. She denies any increased cough or increased sputum production. Most recently she was hospitalized for COPD exacerbation in December. At that time she was started on Breo Ellipta and Incruse, she also stopped smoking and followed up with her healthcare providers, including pulmonary medicine. Unfortunately she reports that her recently, and she started to smoke again, and she has not used her inhalers. Today EMS initial evaluation with O2 sat of 95% on RA. She was given Fentanyl 50mcg by EMS with repeat O2 sat of 88% and was placed on 2L oxygen via [place]. In ER left rib/CXR without infiltrate or rib fracture noted. She was noted to be hypoxic on RA at 87% improved on 1L oxygen via NC to 91%. Obtained CTA chest to r/o PE -shows extensive emphysema, scarring and mucous plugging. No PE. No report of rib fracture. Restarted her on her inhalers, Incruse and Breo. Flutter valve, Mucinex, incentive spirometer. Pain control for her back, and will monitor her closely. MD Christopher (1) COPD (chronic obstructive pulmonary disease) COPD type: unspecified COPD Qualified Code(s): J44.9 - Chronic obstructive pulmonary disease, unspecified
[2022-06-01] MEDS: POTASSIUM CHLORIDE / WTR 10 MEQ/100 ML PLCT IV SCH ×2 (15:55→18:20)
[2022-06-01] MEDS ORDERED: OPTIRAY 300 500mL IV ONE (16:49)
--- NOTE | 2022-06-01 17:03 | CT Scan Report ---
CT angio chest PE protocol CLINICAL HISTORY: PE TECHNIQUE: Multidetector row helical CT of the chest was performed with angiographic protocol. Hidalgo l and sagittal reformations were obtained. Coronal and sagittal MIPS were obtained from the axial alesha a set and were submitted for review. Automated dose lowering techniques and/or adjustment according to patient size were utilized for this exam. CT DOSE: 245.37 mGy.cm Comparison: Comparison is made to CT chest 01/08/2022 FINDINGS: Lungs and pleura: Diffuse centrilobular emphysema is seen most prominent in the upper lobes. There is bronchiectasis and mucous plugging throughout. Scarring is noted most prominently in the apices. Heart and pericardium: Heart size is normal. No pericardial effusion. Vessels: No evidence of pulmonary embolism. Mediastinum and brandon: Unremarkable. Chest wall and lower neck: Unremarkable. Abdomen: Unremarkable. Bones: Degenerative changes in the thoracic spine. IMPRESSION: 1. No evidence of pulmonary embolism. 2. Extensive emphysema, scarring, and mucous plugging. No airspace disease is seen. ACT 112: Negative or not required by law. Electronically signed by: Larry Brunson M.D. 06/01/2022 5:01 PM
[2022-06-01] MEDS ORDERED: ALBUTEROL 0.083% NEBU SOLN 3 ML VIAL NEB PRN (17:23)
[2022-06-01] MEDS ORDERED: POLYETHYLENE (MIRALAX) 17 GM PACK PO PRN (17:23)
[2022-06-01] MEDS ORDERED: ONDANSETRON INJ 2 MG/ML 2 ML VIAL IV PRN (17:23)
[2022-06-01] MEDS ORDERED: CARISOPRODOL 350 MG TABLET PO PRN (17:23)
[2022-06-01] MEDS ORDERED: oxyCODONE HCL IR 5 MG TAB (IMMEDIATE RELEASE) PO PRN (17:23)
[2022-06-01 20:05] LABS: BUN Creatinine Ratio 9.1 (10-20); Calcium 8.5 mg/dl (8.5-10.1); Est GFR (African American) 76.1 ml/min; Est GFR (Non-African American) 65.6 ml/min; Magnesium 2.2 mg/dl (1.7-2.4); Potassium 3.5 mmol/L (3.5-5.1)
[2022-06-01] MEDS: HEPARIN SOD 5,000 UNIT/0.5 ML VIAL SQ SCH (21:06)
[2022-06-01] MEDS: CALCIUM 600MG + VIT D 400 IU TAB PO SCH (21:06)
[2022-06-01] MEDS: guaiFENesin 600 MG TABCR PO SCH (21:06)
[2022-06-01] MEDS: ZOLPIDEM TARTRATE 10 MG TAB PO SCH (21:07)
[2022-06-01] MEDS: ACETAMINOPHEN 500 MG TAB PO SCH (21:07)
[2022-06-01] MEDS: HYDROCODONE/ACETAMOPHEN 5/325MG TAB PO PRN (21:07)
--- NOTE | 2022-06-01 22:12 | Electrocardiogram Report ---
Test Reason : Blood Pressure : / mmHG Vent. Rate : 089 BPM Atrial Rate : 089 BPM P-R Int : 118 ms QRS Dur : 088 ms QT Int : 352 ms P-R-T Axes : 082 068 031 degrees QTc Int : 428 ms Sinus rhythm with occasional Premature ventricular complexes Biatrial enlargement Nonspecific T wave abnormality Abnormal ECG When compared with ECG of 08-JAN-2022 18:19, Premature ventricular complexes are now Present Nonspecific T wave abnormality has replaced inverted T waves in Inferior leads T wave inversion no longer evident in Lateral leads Confirmed by Shyam Rogers ([id number]) on 06/01/2022 10:11:51 PM Referred By: REFERRED SELF Confirmed By:Shyam Rogers
[2022-06-02] MEDS: HYDROCODONE/ACETAMOPHEN 5/325MG TAB PO PRN (05:57)
[2022-06-02] MEDS: ACETAMINOPHEN 500 MG TAB PO SCH ×3 (05:58→21:30)
[2022-06-02 06:34] LABS: Hematocrit (blood only) 35.6 % (34.1-44.9); Mean Corpuscular Hemoglobin 31.2 pg (25.0-34.0); Mean Corpuscular Hgb Conc 33.7 g/dL (32.0-36.0); Mean Corpuscular Volume 92.5 fL (80.0-100.0); Mean Platelet Volume 9.9 fL (9.4-12.3); Platelet Count 233 K/uL (130-400); RDW Coefficient of Variation 13.1 % (11.5-14.5); RDW Standard Deviation 44.7 fL (36.4-46.3); Red Blood Count 3.85 M/uL (3.93-5.22); White Blood Count 7.59 K/ul (4.8-10.8)
--- NOTE | 2022-06-02 07:22 | Electrocardiogram Report ---
Test Reason : Blood Pressure : / mmHG Vent. Rate : 070 BPM Atrial Rate : 070 BPM P-R Int : 128 ms QRS Dur : 088 ms QT Int : 390 ms P-R-T Axes : 076 080 055 degrees QTc Int : 421 ms Normal sinus rhythm Normal ECG When compared with ECG of 01-JUN-2022 10:37, Premature ventricular complexes are no longer Present Confirmed by Benjie Jeffery ([id number]) on 06/02/2022 7:22:05 AM Referred By: REFERRED SELF Confirmed By:Cesar Jeffery
[2022-06-02 07:58] LABS: BUN Creatinine Ratio 12.7 (10-20); Calcium 8.7 mg/dl (8.5-10.1); Creatinine Clr Calc Pharmacy 53.5 ml/min; Est GFR (African American) 103.9 ml/min; Est GFR (Non-African American) 89.6 ml/min; Potassium 3.3 mmol/L (3.5-5.1)
[2022-06-02] MEDS ORDERED: POTASSIUM CHLORIDE CRTAB 20 MEQ TABCR PO ONE (09:01)
[2022-06-02] MEDS ORDERED: HYDROCODONE/ACETAMOPHEN 5/325MG TAB PO PRN (09:01)
[2022-06-02] MEDS: FLUTICASONE/VILANTEROL 100/25MCG 14 PUFFS/INHALER INH SCH (09:01)
[2022-06-02] MEDS: CHOLECALCIFEROL 1,000 UNITS 25 MCG TAB PO SCH (09:02)
[2022-06-02] MEDS: CALCIUM 600MG + VIT D 400 IU TAB PO SCH ×2 (09:02→21:29)
[2022-06-02] MEDS: guaiFENesin 600 MG TABCR PO SCH ×2 (09:02→21:29)
[2022-06-02] MEDS: ASPIRIN 81 MG ECTAB PO SCH (09:02)
[2022-06-02] MEDS: PANTOprazole 40 MG TAB PO SCH (09:02)
[2022-06-02] MEDS: UMECLIDINIUM BROMIDE 62.5MCG/BLISTER 7 PUFFS/INHALER INH SCH (09:03)
[2022-06-02] MEDS: HEPARIN SOD 5,000 UNIT/0.5 ML VIAL SQ SCH ×2 (09:03→21:29)
[2022-06-02] MEDS: LIDOCAINE 5% 1 PATCH TD SCH (09:04)
[2022-06-02] MEDS: ATORVASTATIN 20 MG TAB PO SCH (09:05)
[2022-06-02] MEDS: KETOROLAC TROMETHAMINE 15 MG/ML VIAL IV PRN ×2 (10:55→21:28)
[2022-06-02] MEDS: SODIUM CHLOR 7% 4 ML NEB NEB SCH ×2 (11:14→19:42)
--- NOTE | 2022-06-02 15:41 | Hospitalist Progress Note ---
Date of Service June 02, 2022 Assessment & Plan (1) Hypoxia: (2) Rib pain on left side: Plan: Per admitting service notes with addendum Patient is 72 y/o F with PMH COPD, tobacco use, arthritis, osteoporosis, chronic back pain, HLD, AAA, GERD, migraine presented to ER with c/o left posterior rib pain x 1 day started while sitting and twisted with sudden onset of pain aggravated with any movement and deep inspiration. Feels SOB when pain increases. Today EMS initial evaluation with O2 sat of 95% on RA. She was given Fentanyl 50mcg by EMS with repeat O2 sat of 88% and was placed on 2L oxygen via NC. In ER afebrile, P: 107 down to 84, R: 22 down to 16, BP: 179/97, 100% on 2L via NC and 87% on RA. No leukocytosis, negative procalcitonin, negative SARS-CoV-2 rapid test, negative high sensitivity troponin. EKG sinus rhythm without acute ST elevation Left Rib/CXR: No pneumothorax. No acute left-sided rib fractures. Emphysema. 1.9 cm nodular opacity which projects over the left lower lung. This could be related to the left nipple or minimal airspace disease. In ER was given Tylenol, albuterol neb, Tessalon Perles, magnesium sulfate 1gm, Solu-medrol 60mg IV, morphine 2mg, 500ml NSS DDX: Rib fracture, PE, musculoskeletal etiology, ACS, COPD exacerbation 06/02 CT chest: No pulmonary embolism, no rib fractures, no pneumonia Lungs and pleura: Diffuse centrilobular emphysema is seen most prominent in the upper lobes. There is bronchiectasis and mucous plugging throughout. Scarring is noted most prominently in the apices. Acute hypoxia likely secondary to left scapular pain, musculoskeletal etiology -- Start Toradol 50 mg as needed Continue scheduled Tylenol, Lidoderm patch Start warm compress --Start hypertonic saline twice daily, incentive spirometry, flutter valve Continue Mucinex -- Wean of oxygen accordingly (3) COPD (chronic obstructive pulmonary disease): Plan: No fever/chills, increased cough or sputum production No infiltrate on CXR and negative procalcitonin Low suspicion for COPD exacerbation at this time Monitor and if worsening consider adding additional steroids and/or antibiotics Albuterol neb prn Restart Breo, Incruse Ellipta that pt stopped taking at home 06/02 Not in exacerbation Hypoxia likely secondary to poor inspiratory effort secondary to pain, mucous plugging Start hypertonic saline twice daily Continue Breo, Incruse Ellipta Encouraged to use incentive spirometry, flutter valve (4) Hypokalemia: Plan: K: 3.1. magnesium: 2.5 Replace and monitor Repeat BMP and magnesium tonight Replace (5) Abnormal CXR: Plan: 1.9 cm nodular opacity which projects over the left lower lung. This could be related to the left nipple or minimal airspace disease. CT chest: IMPRESSION: 1. No evidence of pulmonary embolism. 2. Extensive emphysema, scarring, and mucous plugging. No airspace disease is seen. (6) Hyperlipidemia: Plan: Continue atorvastatin (7) Arthritis: (8) Fibromyalgia: Plan: Chronic back pain Continue carisoprodol as needed (9) Low BMI: Plan: BMI: 16.5 (10) Tobacco use: Plan: Stopped smoking several months ago and unfortunately resumed smoking recently Smoking cessation encouraged Denies nicotine patch (11) Osteoporosis: Plan: On alendronate (12) AAA (abdominal aortic aneurysm) without rupture: Plan: 2.[address] scan on 2019 DVT Prophylaxis Heparin SQ DNR/DNI as per discussion with pt Follows with Dr Stearns for routine care Disposition PT and OT evaluation Anticipate discharge to home medically stable Admission and Anticipated Discharge Date Admission Date: June 01, 2022 Subjective Follow-up for left scapular pain, hypoxia, COPD etc. Seen sitting up in bed, states she still has significant left scapular pain, worse with movement, sharp Has some difficulty breathing secondary to pain No fevers or chills, cough, sputum production No other symptoms Review of Systems Review of Systems: all noted and negative except for above Physical Exam Physical Exam: General- oriented x 3, not in distress, speaks in sentences with no effort or accessory muscle use Head- atraumatic Eyes- PERRL, EOMI, anicteric ENT- oropharynx clear Neck- supple, no JVD, no adenopathy, no thyromegaly; carotids +2/2, no bruits appreciated Lungs- clear to auscultation bilaterally, no rales/wheezes Heart- normal rate, regular rhythm; no murmur, no gallop, no rub appreciated Abdomen- normal bowel sounds, nondistended, soft, nontender, no masses or hepatosplenomegaly Extremities- no pretibial edema, no calf tenderness; peripheral pulses intact Back-positive tenderness on the left scapula, no edema/erythema/warmth Neuro- alert, oriented x 3; CN 2-12 grossly intact; motor 5/5 bilaterally;sensation 100% on all extremities; no other gross focal neurologic deficits Skin- warm & dry Results & Data Results & Data ([facility]) Vital Signs (Past 12 Hours) Vital Signs Temp Pulse Pulse Resp BP BP Pulse Ox 06/02/22 07:00 90 06/02/22 08:00 06/02/22 12:00 36.7 C 79 18 130/65 93 06/02/22 11:17 75 18 95 06/02/22 08:00 36.6 C 69 18 120/53 L 95 O2 Del Method O2 Flow Rate 06/02/22 07:00 06/02/22 08:00 Nasal Cannula 2 06/02/22 12:00 Nasal Cannula 2 06/02/22 11:17 Nasal Cannula 2 06/02/22 08:00 Nasal Cannula 2 all noted and reviewed including below (1) COPD (chronic obstructive pulmonary disease) COPD type: unspecified COPD Qualified Code(s): J44.9 - Chronic obstructive pulmonary disease, unspecified
[2022-06-02] MEDS: oxyCODONE HCL IR 5 MG TAB (IMMEDIATE RELEASE) PO PRN ×2 (16:23→23:42)
[2022-06-02] MEDS: ZOLPIDEM TARTRATE 10 MG TAB PO SCH (21:30)
[2022-06-03] MEDS: ACETAMINOPHEN 500 MG TAB PO SCH ×3 (06:03→21:08)
[2022-06-03] MEDS: SODIUM CHLOR 7% 4 ML NEB NEB SCH ×2 (07:29→20:11)
[2022-06-03] MEDS ORDERED: POTASSIUM CHLORIDE CRTAB 20 MEQ TABCR PO STA (08:18)
[2022-06-03] MEDS: CALCIUM 600MG + VIT D 400 IU TAB PO SCH ×2 (08:21→21:07)
[2022-06-03] MEDS: guaiFENesin 600 MG TABCR PO SCH ×2 (08:21→21:07)
[2022-06-03] MEDS: oxyCODONE HCL IR 5 MG TAB (IMMEDIATE RELEASE) PO PRN ×3 (08:21→21:06)
[2022-06-03] MEDS: ATORVASTATIN 20 MG TAB PO SCH (08:22)
[2022-06-03] MEDS: ASPIRIN 81 MG ECTAB PO SCH (08:22)
[2022-06-03] MEDS: CHOLECALCIFEROL 1,000 UNITS 25 MCG TAB PO SCH (08:22)
[2022-06-03] MEDS: LIDOCAINE 5% 1 PATCH TD SCH (08:23)
[2022-06-03] MEDS: PANTOprazole 40 MG TAB PO SCH (08:23)
[2022-06-03] MEDS: HEPARIN SOD 5,000 UNIT/0.5 ML VIAL SQ SCH ×2 (08:23→21:07)
[2022-06-03] MEDS: UMECLIDINIUM BROMIDE 62.5MCG/BLISTER 7 PUFFS/INHALER INH SCH (08:24)
[2022-06-03] MEDS: FLUTICASONE/VILANTEROL 100/25MCG 14 PUFFS/INHALER INH SCH (08:24)
--- NOTE | 2022-06-03 13:25 | Hospitalist Progress Note ---
Date of Service June 03, 2022 Assessment & Plan (1) Hypoxia: Plan: Has severe COPD Claims to quit smoking about 1 week ago Acute hypoxia likely secondary to left scapular pain, musculoskeletal etiology Started on Toradol 50 mg as needed Continue scheduled Tylenol, Lidoderm patch Start warm compress Remains clinically better Will need to be steps O2 saturation test prior to discharge PT OT evaluation (2) Rib pain on left side: Plan: Patient is 72 y/o F with PMH COPD, tobacco use, arthritis, osteoporosis, chronic back pain, HLD, AAA, GERD, migraine presented to ER with c/o left posterior rib pain x 1 day started while sitting and twisted with sudden onset of pain aggravated with any movement and deep inspiration. Feels SOB when pain increases. On the day of admission EMS initial evaluation with O2 sat of 95% on RA. She was given Fentanyl 50mcg by EMS with repeat O2 sat of 88% and was placed on 2L oxygen via NC. In ER afebrile, P: 107 down to 84, R: 22 down to 16, BP: 179/97, 100% on 2L via NC and 87% on RA. X-ray of the ribs did not show any fracture CTA did not show any pulmonary embolism Pain seems to be reasonably controlled (3) COPD (chronic obstructive pulmonary disease): Plan: In ER was given Tylenol, albuterol neb, Tessalon Perles, magnesium sulfate 1gm, Solu-medrol 60mg IV, morphine 2mg, 500ml NSS No fever/chills, increased cough or sputum production No infiltrate on CXR and negative procalcitonin Low suspicion for COPD exacerbation at this time Monitor and if worsening consider adding additional steroids and/or antibiotics Albuterol neb prn Restart Breo, Incruse Ellipta that pt stopped taking at home Has been requiring 2 L of oxygen at rest to maintain saturation and desaturates more with activity Clinically much better today and will need to have 2 steps O2 saturation test before discharge (4) Hypokalemia: Plan: K: 3.1. magnesium: 2.5 Replace and monitor Repeat BMP and magnesium tonight Replace (5) Abnormal CXR: Plan: 1.9 cm nodular opacity which projects over the left lower lung. This could be related to the left nipple or minimal airspace disease. CT chest: IMPRESSION: 1. No evidence of pulmonary embolism. 2. Extensive emphysema, scarring, and mucous plugging. No airspace disease is seen. (6) Hyperlipidemia: Plan: Continue atorvastatin (7) Arthritis: (8) Fibromyalgia: Plan: Chronic back pain Continue carisoprodol as needed (9) Low BMI: Plan: BMI: 16.5 (10) Tobacco use: Plan: Stopped smoking several months ago and unfortunately resumed smoking recently Smoking cessation encouraged Denies nicotine patch (11) Osteoporosis: Plan: On alendronate (12) AAA (abdominal aortic aneurysm) without rupture: Plan: 2.[address] scan on 2019 DVT Prophylaxis Heparin SQ DNR/DNI as per discussion with pt Follows with Dr Stearns for routine care Disposition PT and OT evaluation Anticipate discharge to home medically stable Admission and Anticipated Discharge Date Admission Date: June 01, 2022 Subjective 06/03/2022 The patient was seen and examined in medical telemetry unit She has been feeling much better but is still getting severe shortness of breath with exertion Has been requiring 2 L to maintain saturation at rest Denies any fever and or chills or any wheezing Review of Systems Review of Systems: All systems reviewed and are unremarkable except as noted below Respiratory: Minimal shortness of breath at rest Physical Exam Physical Exam: Sitting on the bed with mild to moderate shortness of breath Constitutional: + ill appearing and + thin Eyes: PERRL, conjunctivae normal, anicteric sclerae ENMT: external ear and nose normal, oropharynx normal Neck: trachea midline, no thyromegaly Respiratory: no respiratory distress Auscultation: + diminished lung sounds; no crackles and no wheezes Gastrointestinal (Abdomen): Inspection/Auscultation: normal bowel sounds; abdomen not distended Percussion/Palpation: abdomen soft; abdomen nontender Musculoskeletal: No acute arthritis in any joint Neurologic: normal touch/pain/proprioception and moves all extremities; no focal motor deficits Generally very weak and lethargic Psychiatric: A+Ox3, euthymic affect Lymphatic: no cervical or axillary lymphadenopathy Results & Data Results & Data ([facility]) Vital Signs (Past 12 Hours) Vital Signs Temp Pulse Pulse Resp BP BP Pulse Ox 06/03/22 11:06 36.7 C 85 16 109/57 L 94 06/03/22 07:00 71 06/03/22 10:48 06/03/22 07:56 36.3 C L 91 H 18 133/50 L 94 06/03/22 07:30 75 18 96 06/03/22 03:30 36.5 C 67 18 117/66 97 O2 Del Method O2 Flow Rate 06/03/22 11:06 Nasal Cannula 2 06/03/22 07:00 06/03/22 10:48 Nasal Cannula 2 06/03/22 07:56 Nasal Cannula 2 06/03/22 07:30 Nasal Cannula 2 06/03/22 03:30 Room Air Medications Administered Current Inpatient Medications Acetaminophen (Acetaminophen 500 Mg Tab) 1,000 mg PO Q8 [facility] Stop: 07/01/22 21:59 Last Admin: 06/03/22 13:17 Dose: Not Given Albuterol (Albuterol 0.083% Nebu Soln 3 Ml Vial) 2.5 mg NEB Q6R PRN; Protocol PRN Reason: Shortness Of Breath Or Wheezing Stop: 07/01/22 17:22 Aspirin (Aspirin 81 Mg Ectab) 81 mg PO DAILY [facility] Stop: 07/02/22 08:59 Last Admin: 06/03/22 08:22 Dose: 81 mg Atorvastatin Calcium (Atorvastatin 20 Mg Tab) 20 mg PO DAILY [facility] Stop: 07/02/22 08:59 Last Admin: 06/03/22 08:22 Dose: 20 mg Carisoprodol (Carisoprodol 350 Mg Tablet) 350 mg PO TID PRN PRN Reason: Muscle Spasm Stop: 07/01/22 17:22 Fluticasone/Vilanterol (Fluticasone/Vilanterol 100/25mcg 14 Puffs/Inhaler) 1 puffs INH DAILY [facility] Stop: 07/02/22 08:59 Last Admin: 06/03/22 08:24 Dose: 1 puffs Guaifenesin (Guaifenesin 600 Mg Tabcr) 1,200 mg PO Q12 [facility] Stop: 07/01/22 20:59 Last Admin: 06/03/22 08:21 Dose: 1,200 mg Heparin Sodium (Porcine) (Heparin Sod 5,000 Unit/0.5 Ml Vial) 5,000 units SQ Q12 [facility] Stop: 07/01/22 20:59 Last Admin: 06/03/22 08:23 Dose: 5,000 units Ketorolac Tromethamine (Ketorolac Tromethamine 15 Mg/Ml Vial) 15 mg IV Q6H PRN PRN Reason: mild-moderate pain Stop: 06/07/22 08:58 Last Admin: 06/02/22 21:28 Dose: 15 mg Lidocaine (Lidocaine 5% 1 Patch) 1 patch TD QAM [facility] Stop: 07/02/22 08:59 Last Admin: 06/03/22 08:23 Dose: 1 patch Miscellaneous (Remove Lidoderm Patch) 1 each N/A DAILY@2100 [facility] Stop: 07/01/22 20:59 Last Admin: 06/02/22 21:30 Dose: 1 each Multivitamins/Minerals (Calcium 600mg + Vit D 400 Iu Tab) 1 tab PO BID [facility] Stop: 07/01/22 20:59 Last Admin: 06/03/22 08:21 Dose: 1 tab Ondansetron HCl (Ondansetron Inj 2 Mg/Ml 2 Ml Vial) 4 mg IV Q6H PRN PRN Reason: Nausea Stop: 07/01/22 17:22 Last Admin: 06/02/22 11:01 Dose: 4 mg Oxycodone HCl (Oxycodone Hcl Ir 5 Mg Tab (Immediate Release)) 5 mg PO Q6H PRN PRN Reason: severe pain Stop: 06/16/22 09:04 Last Admin: 06/03/22 08:21 Dose: 5 mg Pantoprazole Sodium (Pantoprazole 40 Mg Tab) 40 mg PO QAM [facility] Stop: 07/02/22 08:59 Last Admin: 06/03/22 08:23 Dose: 40 mg Polyethylene Glycol (Polyethylene (Miralax) 17 Gm Pack) 17 gm PO DAILY PRN PRN Reason: Constipation Stop: 07/01/22 17:22 Sodium Chloride (Sodium Chlor 7% 4 Ml Neb) 4 ml NEB BIDR [facility] Stop: 07/02/22 08:59 Last Admin: 06/03/22 07:29 Dose: 4 ml Umeclidinium [place] (Umeclidinium [place] 62.5mcg/Blister 7 Puffs/Inhaler) 1 puffs INH QAM [facility] Stop: 07/02/22 08:59 Last Admin: 06/03/22 08:24 Dose: 1 puffs Vitamin D (Cholecalciferol 1,000 Units 25 Mcg Tab) 1,000 units PO DAILY [facility] Stop: 07/02/22 08:59 Last Admin: 06/03/22 08:22 Dose: 1,000 units Zolpidem Tartrate (Zolpidem Tartrate 10 Mg Tab) 10 mg PO HS [facility] Stop: 07/01/22 20:59 Last Admin: 06/02/22 21:30 Dose: 10 mg (1) COPD (chronic obstructive pulmonary disease) COPD type: unspecified COPD Qualified Code(s): J44.9 - Chronic obstructive pulmonary disease, unspecified
[2022-06-03] MEDS: KETOROLAC TROMETHAMINE 15 MG/ML VIAL IV PRN (18:13)
[2022-06-03] MEDS: ZOLPIDEM TARTRATE 10 MG TAB PO SCH (21:08)
[2022-06-04] MEDS: ACETAMINOPHEN 500 MG TAB PO SCH ×2 (05:52→14:01)
[2022-06-04 07:08] LABS: Basophils # (auto) 0.03 K/uL (0-0.2); Basophils % (auto) 0.4 %; Eosinophils # (auto) 0.08 K/uL (0-0.50); Hemoglobin 12.3 g/dl (12.0-16.0); Immature Granulocytes # (auto) 0.03 K/uL (0.00-0.02); Immature Granulocytes % (auto) 0.4 %; Lymphocytes # (auto) 1.42 K/uL (1.2-3.4); Lymphocytes % (auto) 18.5 %; Mean Corpuscular Hemoglobin 31.4 pg (25.0-34.0); Mean Corpuscular Hgb Conc 34.2 g/dL (32.0-36.0); Mean Corpuscular Volume 91.8 fL (80.0-100.0); Mean Platelet Volume 9.8 fL (9.4-12.3); Monocytes # (auto) 0.88 K/uL (0.24-0.82); Monocytes % (auto) 11.5 %; Neutrophils # (auto) 5.23 K/uL (1.4-6.5); Neutrophils % (auto) 68.2 %; Platelet Count 233 K/uL (130-400); RDW Standard Deviation 43.5 fL (36.4-46.3); Red Blood Count 3.92 M/uL (3.93-5.22); White Blood Count 7.67 K/ul (4.8-10.8)
[2022-06-04] MEDS: SODIUM CHLOR 7% 4 ML NEB NEB SCH (07:16)
[2022-06-04 07:33] LABS: BUN Creatinine Ratio 21.2 (10-20); Calcium 9.7 mg/dl (8.5-10.1); Creatinine Clr Calc Pharmacy 51.3 ml/min; Est GFR (African American) 102.3 ml/min; Est GFR (Non-African American) 88.3 ml/min; Magnesium 1.6 mg/dl (1.7-2.4); Phosphorus 2.9 mg/dl (2.5-4.9); Potassium 4.1 mmol/L (3.5-5.1)
[2022-06-04] MEDS: PANTOprazole 40 MG TAB PO SCH (08:23)
[2022-06-04] MEDS: CHOLECALCIFEROL 1,000 UNITS 25 MCG TAB PO SCH (08:23)
[2022-06-04] MEDS: ASPIRIN 81 MG ECTAB PO SCH (08:23)
[2022-06-04] MEDS: guaiFENesin 600 MG TABCR PO SCH (08:24)
[2022-06-04] MEDS: ATORVASTATIN 20 MG TAB PO SCH (08:24)
[2022-06-04] MEDS: CALCIUM 600MG + VIT D 400 IU TAB PO SCH (08:24)
[2022-06-04] MEDS: UMECLIDINIUM BROMIDE 62.5MCG/BLISTER 7 PUFFS/INHALER INH SCH (08:24)
[2022-06-04] MEDS: FLUTICASONE/VILANTEROL 100/25MCG 14 PUFFS/INHALER INH SCH (08:24)
[2022-06-04] MEDS: LIDOCAINE 5% 1 PATCH TD SCH (08:25)
[2022-06-04] MEDS: HEPARIN SOD 5,000 UNIT/0.5 ML VIAL SQ SCH (08:25)
[2022-06-04] MEDS: oxyCODONE HCL IR 5 MG TAB (IMMEDIATE RELEASE) PO PRN (11:45)
--- NOTE | 2022-06-04 14:13 | Hospitalist Progress Note ---
Date of Service June 04, 2022 Assessment & Plan (1) Hypoxia: Plan: Has severe COPD Claims to quit smoking about 1 week ago Acute hypoxia likely secondary to left scapular pain, musculoskeletal etiology Started on Toradol 50 mg as needed Continue scheduled Tylenol, Lidoderm patch Start warm compress Remains clinically better Will need to be steps O2 saturation test prior to discharge PT OT evaluation-completed and the patient can be discharged home Has had 2 steps O2 saturation test and the patient does not require any oxygen at rest or with ambulation She will be discharged home this afternoon (2) Rib pain on left side: Plan: Patient is 72 y/o F with PMH COPD, tobacco use, arthritis, osteoporosis, chronic back pain, HLD, AAA, GERD, migraine presented to ER with c/o left posterior rib pain x 1 day started while sitting and twisted with sudden onset of pain aggravated with any movement and deep inspiration. Feels SOB when pain increases. On the day of admission EMS initial evaluation with O2 sat of 95% on RA. She was given Fentanyl 50mcg by EMS with repeat O2 sat of 88% and was placed on 2L oxygen via NC. In ER afebrile, P: 107 down to 84, R: 22 down to 16, BP: 179/97, 100% on 2L via NC and 87% on RA. X-ray of the ribs did not show any fracture CTA did not show any pulmonary embolism Pain seems to be reasonably controlled (3) COPD (chronic obstructive pulmonary disease): Plan: In ER was given Tylenol, albuterol neb, Tessalon Perles, magnesium sulfate 1gm, Solu-medrol 60mg IV, morphine 2mg, 500ml NSS No fever/chills, increased cough or sputum production No infiltrate on CXR and negative procalcitonin Low suspicion for COPD exacerbation at this time Monitor and if worsening consider adding additional steroids and/or antibiotics Albuterol neb prn Restart Breo, Incruse Ellipta that pt stopped taking at home Has been requiring 2 L of oxygen at rest to maintain saturation and desaturates more with activity Clinically much better today and will need to have 2 steps O2 saturation test before discharge Medically stable without any significant shortness of breath at rest or with exertion (4) Hypokalemia: Plan: K: 3.1. magnesium: 2.5 Replace and monitor Repeat BMP and magnesium tonight Replace (5) Abnormal CXR: Plan: 1.9 cm nodular opacity which projects over the left lower lung. This could be related to the left nipple or minimal airspace disease. CT chest: IMPRESSION: 1. No evidence of pulmonary embolism. 2. Extensive emphysema, scarring, and mucous plugging. No airspace disease is seen. (6) Hyperlipidemia: Plan: Continue atorvastatin (7) Arthritis: (8) Fibromyalgia: Plan: Chronic back pain Continue carisoprodol as needed (9) Low BMI: Plan: BMI: 16.5 (10) Tobacco use: Plan: Stopped smoking several months ago and unfortunately resumed smoking recently Smoking cessation encouraged Denies nicotine patch (11) Osteoporosis: Plan: On alendronate (12) AAA (abdominal aortic aneurysm) without rupture: Plan: 2.[address] scan on 2019 DVT Prophylaxis Heparin SQ DNR/DNI as per discussion with pt Follows with Dr Stearns for routine care Disposition She will be discharged home this afternoon Admission and Anticipated Discharge Date Admission Date: June 01, 2022 Subjective 06/03/2022 The patient was seen and examined in medical telemetry unit She has been feeling much better but is still getting severe shortness of breath with exertion Has been requiring 2 L to maintain saturation at rest Denies any fever and or chills or any wheezing 06/04/2022 The patient was seen and examined in medical telemetry unit She has been feeling much better and denies any significant shortness of breath at rest She has had physical therapy and also passed 2 years steps O2 saturation test She will be discharged home this afternoon Review of Systems Review of Systems: All systems reviewed and are unremarkable except as noted below Respiratory: Minimal shortness of breath at rest Physical Exam Physical Exam: Sitting on the bed with mild to moderate shortness of breath Constitutional: + ill appearing and + thin Eyes: PERRL, conjunctivae normal, anicteric sclerae ENMT: external ear and nose normal, oropharynx normal Neck: trachea midline, no thyromegaly Respiratory: no respiratory distress Auscultation: + diminished lung sounds; no crackles and no wheezes Gastrointestinal (Abdomen): Inspection/Auscultation: normal bowel sounds; abdomen not distended Percussion/Palpation: abdomen soft; abdomen nontender Musculoskeletal: No acute arthritis in any joint Neurologic: normal touch/pain/proprioception and moves all extremities; no focal motor deficits Psychiatric: A+Ox3, euthymic affect Lymphatic: no cervical or axillary lymphadenopathy Results & Data Results & Data ([facility]) Vital Signs (Past 12 Hours) Vital Signs Temp Pulse Pulse Pulse Pulse Pulse Resp 06/04/22 13:05 110 H 106 H 93 H 06/04/22 11:24 36.8 C 87 16 06/04/22 08:04 36.4 C L 72 16 06/04/22 07:21 06/04/22 07:16 78 20 06/04/22 07:08 76 06/04/22 03:25 36.4 C L 79 18 Resp Resp Resp BP BP Pulse Ox Pulse Ox 06/04/22 13:05 22 20 18 90 06/04/22 11:24 125/72 90 06/04/22 08:04 101/57 L 96 06/04/22 07:21 06/04/22 07:16 95 06/04/22 07:08 06/04/22 03:25 135/74 90 Pulse Ox Pulse Ox O2 Del Method O2 Flow Rate 06/04/22 13:05 90 93 06/04/22 11:24 Room Air 06/04/22 08:04 Nasal Cannula 1 06/04/22 07:21 Nasal Cannula 2 06/04/22 07:16 Nasal Cannula 1 06/04/22 07:08 06/04/22 03:25 Room Air Laboratory Results Short CBC 06/04/22 Range/Units 06:48 WBC 7.67 (4.8-10.8) K/ul Hgb 12.3 (12.0-16.0) g/dl Hct 36.0 (34.1-44.9) % Plt Count 233 (130-400) K/uL BMP 06/04/22 06:48 Sodium 136 Potassium 4.1 Chloride 101 Carbon Dioxide 32 BUN 14 Creatinine 0.66 Glucose 112 H Calcium 9.7 Medications Administered Current Inpatient Medications Acetaminophen (Acetaminophen 500 Mg Tab) 1,000 mg PO Q8 [facility] Stop: 07/01/22 21:59 Last Admin: 06/04/22 14:01 Dose: 1,000 mg Albuterol (Albuterol 0.083% Nebu Soln 3 Ml Vial) 2.5 mg NEB Q6R PRN; Protocol PRN Reason: Shortness Of Breath Or Wheezing Stop: 07/01/22 17:22 Aspirin (Aspirin 81 Mg Ectab) 81 mg PO DAILY [facility] Stop: 07/02/22 08:59 Last Admin: 06/04/22 08:23 Dose: 81 mg Atorvastatin Calcium (Atorvastatin 20 Mg Tab) 20 mg PO DAILY [facility] Stop: 07/02/22 08:59 Last Admin: 06/04/22 08:24 Dose: 20 mg Carisoprodol (Carisoprodol 350 Mg Tablet) 350 mg PO TID PRN PRN Reason: Muscle Spasm Stop: 07/01/22 17:22 Fluticasone/Vilanterol (Fluticasone/Vilanterol 100/25mcg 14 Puffs/Inhaler) 1 puffs INH DAILY [facility] Stop: 07/02/22 08:59 Last Admin: 06/04/22 08:24 Dose: 1 puffs Guaifenesin (Guaifenesin 600 Mg Tabcr) 1,200 mg PO Q12 [facility] Stop: 07/01/22 20:59 Last Admin: 06/04/22 08:24 Dose: 1,200 mg Heparin Sodium (Porcine) (Heparin Sod 5,000 Unit/0.5 Ml Vial) 5,000 units SQ Q12 [facility] Stop: 07/01/22 20:59 Last Admin: 06/04/22 08:25 Dose: 5,000 units Ketorolac Tromethamine (Ketorolac Tromethamine 15 Mg/Ml Vial) 15 mg IV Q6H PRN PRN Reason: mild-moderate pain Stop: 06/07/22 08:58 Last Admin: 06/03/22 18:13 Dose: 15 mg Lidocaine (Lidocaine 5% 1 Patch) 1 patch TD QAM [facility] Stop: 07/02/22 08:59 Last Admin: 06/04/22 08:25 Dose: 1 patch Miscellaneous (Remove Lidoderm Patch) 1 each N/A DAILY@2100 [facility] Stop: 07/01/22 20:59 Last Admin: 06/03/22 21:08 Dose: 1 each Multivitamins/Minerals (Calcium 600mg + Vit D 400 Iu Tab) 1 tab PO BID [facility] Stop: 07/01/22 20:59 Last Admin: 06/04/22 08:24 Dose: 1 tab Ondansetron HCl (Ondansetron Inj 2 Mg/Ml 2 Ml Vial) 4 mg IV Q6H PRN PRN Reason: Nausea Stop: 07/01/22 17:22 Last Admin: 06/02/22 11:01 Dose: 4 mg Oxycodone HCl (Oxycodone Hcl Ir 5 Mg Tab (Immediate Release)) 5 mg PO Q6H PRN PRN Reason: severe pain Stop: 06/16/22 09:04 Last Admin: 06/04/22 11:45 Dose: 5 mg Pantoprazole Sodium (Pantoprazole 40 Mg Tab) 40 mg PO QAM [facility] Stop: 07/02/22 08:59 Last Admin: 06/04/22 08:23 Dose: 40 mg Polyethylene Glycol (Polyethylene (Miralax) 17 Gm Pack) 17 gm PO DAILY PRN PRN Reason: Constipation Stop: 07/01/22 17:22 Sodium Chloride (Sodium Chlor 7% 4 Ml Neb) 4 ml NEB BIDR [facility] Stop: 07/02/22 08:59 Last Admin: 06/04/22 07:16 Dose: 4 ml Umeclidinium [place] (Umeclidinium [place] 62.5mcg/Blister 7 Puffs/Inhaler) 1 puffs INH QAM [facility] Stop: 07/02/22 08:59 Last Admin: 06/04/22 08:24 Dose: 1 puffs Vitamin D (Cholecalciferol 1,000 Units 25 Mcg Tab) 1,000 units PO DAILY [facility] Stop: 07/02/22 08:59 Last Admin: 06/04/22 08:23 Dose: 1,000 units Zolpidem Tartrate (Zolpidem Tartrate 10 Mg Tab) 10 mg PO HS [facility] Stop: 07/01/22 20:59 Last Admin: 06/03/22 21:08 Dose: 10 mg (1) COPD (chronic obstructive pulmonary disease) COPD type: unspecified COPD Qualified Code(s): J44.9 - Chronic obstructive pulmonary disease, unspecified
--- NOTE | 2022-06-05 07:27 | Discharge Summary ---
Date of Service June 05, 2022 Admission HPI Per Admitting Provider Patient is 72 y/o F with PMH COPD, tobacco use, arthritis, osteoporosis, chronic back pain, HLD, AAA, GERD, migraine presented to ER with c/o left posterior rib pain x 1 day. History obtained from patient and chart review. Patient states last night started with left rib/back pain/left shoulder blade that started when she was sitting talking on phone and slightly twisted and had sudden onset of pain. Pain aggravated with movement and deep inspiration. Reports feels SOB when gets the stabbing pain sensation when she moves. Denies other chest pain. Denies any known injury or trauma. Has chronic back pain and uses Soma as needed and in past used hydrocodone in past but hasn't used recently. Has chronic cough productive of white sputum. She denies any increased cough or increased sputum production. History hospitalization in 01/08/22-01/12/22 for COPD exacerbation and had stopped smoking for a couple of months. Started smoking again recently after the of her . Smoking less than pack a day, was previously smoking 1.5ppd. Was discharged on Breo, Incruse Ellipta and was taking them however stopped using shortly after. She followed up initially with Dr Gay with pulmonology however did not keep her follow up appointment in 04/2022. Today EMS initial evaluation with O2 sat of 95% on RA. She was given Fentanyl 50mcg by EMS with repeat O2 sat of 88% and was placed on 2L oxygen via NC. Denies fever/ chills, diaphoresis, N/V/D/C, BAIN, dizziness, syncope, vision changes, neck pain, orthopnea, palpitations, hemoptysis, sore throat, choking, otalgia, rhinorrhea, abdominal pain, paresthesias, weakness, extremity weakness, extremity edema, rashes, urinary symptoms. In ER left rib/CXR without infiltrate or rib fracture noted. She was noted to be hypoxic on RA at 87% improved on 1L oxygen via NC to 91%. Admission Exam Per Admitting Provider Physical Exam: General: no acute distress, thin, frail elderly female Head: normocephalic, atraumatic Eyes: conjunctiva non-injected, anicteric ENT: normal inspection external ears, nose, mucous membranes moist Neck: supple, trachea midline Lungs: diminished throughout, no respiratory distress, no wheezing/rhonchi/rales Chest wall: +tenderness to palpation left posterior ribs, +tenderness distal scapula. No skin discolorations noted. Back: no spinous process tenderness to palpation, +kyphotic CV: RRR, no murmur, no pretibial edema Abd: normal BS, soft, non-tender Ext: no cyanosis, no calf tenderness Neuro: A&O x 3, no focal deficits noted, normal affect Skin: warm, dry Principal Diagnosis Acute hypoxia secondary to severe COPD, no definite infection, left-sided ribs pain, fibromyalgia Discharge Exam Sitting on the bed with mild to moderate shortness of breath Constitutional + ill appearing and + thin Eyes PERRL, conjunctivae normal, anicteric sclerae ENMT external ear and nose normal, oropharynx normal Neck trachea midline, no thyromegaly Respiratory no respiratory distress Auscultation: + diminished lung sounds; no crackles and no wheezes Gastrointestinal (Abdomen) Inspection/Auscultation: normal bowel sounds; abdomen not distended Percussion/Palpation: abdomen soft; abdomen nontender Neurologic normal touch/pain/proprioception and moves all extremities; no focal motor deficits Psychiatric A+Ox3, euthymic affect Lymphatic no cervical or axillary lymphadenopathy Discharge Data Allergies Allergy/AdvReac Type Severity Reaction Status Date / Time sumatriptan [From Imitrex] Allergy Severe stopped Verified 01/23/22 10:54 breathing as per px Consultations 06/01/22 14:49 ED Decision to Admit Stat Ordered Studies 06/01/22 15:51 CT angio chest PE protocol Stat Hospital Course (1) Hypoxia: Has severe COPD Claims to quit smoking about 1 week ago Acute hypoxia likely secondary to left scapular pain, musculoskeletal etiology Started on Toradol 50 mg as needed Continue scheduled Tylenol, Lidoderm patch Start warm compress Remains clinically better Will need to be steps O2 saturation test prior to discharge PT OT evaluation-completed and the patient can be discharged home Has had 2 steps O2 saturation test and the patient does not require any oxygen at rest or with ambulation She will be discharged home this afternoon (2) Rib pain on left side: Patient is 72 y/o F with PMH COPD, tobacco use, arthritis, osteoporosis, chronic back pain, HLD, AAA, GERD, migraine presented to ER with c/o left posterior rib pain x 1 day started while sitting and twisted with sudden onset of pain aggravated with any movement and deep inspiration. Feels SOB when pain increases. On the day of admission EMS initial evaluation with O2 sat of 95% on RA. She was given Fentanyl 50mcg by EMS with repeat O2 sat of 88% and was placed on 2L oxygen via NC. In ER afebrile, P: 107 down to 84, R: 22 down to 16, BP: 179/97, 100% on 2L via NC and 87% on RA. X-ray of the ribs did not show any fracture CTA did not show any pulmonary embolism Pain seems to be reasonably controlled (3) COPD (chronic obstructive pulmonary disease): In ER was given Tylenol, albuterol neb, Tessalon Perles, magnesium sulfate 1gm, Solu-medrol 60mg IV, morphine 2mg, 500ml NSS No fever/chills, increased cough or sputum production No infiltrate on CXR and negative procalcitonin Low suspicion for COPD exacerbation at this time Monitor and if worsening consider adding additional steroids and/or antibiotics Albuterol neb prn Restart Breo, Incruse Ellipta that pt stopped taking at home Has been requiring 2 L of oxygen at rest to maintain saturation and desaturates more with activity Clinically much better today and will need to have 2 steps O2 saturation test before discharge Medically stable without any significant shortness of breath at rest or with exertion (4) Hypokalemia: K: 3.1. magnesium: 2.5 Replace and monitor Repeat BMP and magnesium tonight Replace (5) Abnormal CXR: 1.9 cm nodular opacity which projects over the left lower lung. This could be related to the left nipple or minimal airspace disease. CT chest: IMPRESSION: 1. No evidence of pulmonary embolism. 2. Extensive emphysema, scarring, and mucous plugging. No airspace disease is seen. (6) Hyperlipidemia: Continue atorvastatin (7) Arthritis: (8) Fibromyalgia: Chronic back pain Continue carisoprodol as needed (9) Low BMI: BMI: 16.5 (10) Tobacco use: Stopped smoking several months ago and unfortunately resumed smoking recently Smoking cessation encouraged Denies nicotine patch (11) Osteoporosis: On alendronate (12) AAA (abdominal aortic aneurysm) without rupture: 2.[address] scan on 2019 DVT Prophylaxis Heparin SQ DNR/DNI as per discussion with pt Follows with Dr Stearns for routine care Disposition She will be discharged home this afternoon Total Time Total Time Spent Total Time Spent (In Minutes): 35 minutes Discharge Plan Discharge Items Patient Disposition: Home - Self-Care Reason For Visit: SOB Discharge Diagnosis: Acute hypoxia secondary to severe COPD, no definite infection, left-sided ribs pain, fibromyalgia Condition on Discharge: Fair Activity: Resume your previous activity Non-emergency contact: Primary Care Provider Call non-emergency contact if: you have any medication questions and your symptoms worsen Follow-up/Referrals: Nick Stearns DO [Primary Care Provider] - (Date & Time 06/08/2022 11:20 AM Provider Nick Stearns DO Department [facility] [address], [place] ) Diet: Regular Addtl Attending Provider Instructions: Please take precautions to avoid falls Take your medications as advised Take precautions to avoid respiratory stimulants as advised Please keep appointment with your healthcare provider Can try tylenol 1 gm up to 3 times a day for pain ribs pain on top of the Diclofenac gel Pending Studies at Discharge: No Stand-Alone Forms: My Adfaces, Smoking Cessation Medications and DC Order Prescriptions: New diclofenac sodium 1 % gel 2 g topical TID Qty: 100 0RF Rx Instructions: Over left posterior ribs Continued alendronate 70 mg tablet 70 mg PO WK carisoprodol 350 mg tablet 350 mg PO TID PRN (Reason: Muscle Spasm) omeprazole 20 mg capsule,delayed release(DR/EC) 20 mg PO QAM zolpidem 10 mg tablet 10 mg PO HS [id number] [id number] mg capsule 1 cap PO Q6H PRN (Reason: Migraine Headache) Calcium 600 + D(3) 600 mg calcium- 200 unit Capsule 1 cap PO BID cholecalciferol (vitamin D3) [Vitamin D3] 25 mcg (1,000 unit) Tablet 25 mcg PO DAILY [facility] Multi [facility] 13.5-200-250 mg-mcg-mcg Tablet 1 tab PO DAILY albuterol sulfate 90 mcg/actuation Hfa Aerosol Inhaler 1 puff INHALATION QID PRN (Reason: Wheezing) Incruse Ellipta 62.5 mcg/actuation Blister With Device 1 inh inhalation QAM Qty: 30 0RF Rx Instructions: Has not been taking fluticasone furoate-vilanterol [Breo Ellipta] 100-25 mcg/dose Blister With Device 1 ea inhalation DAILY Qty: 60 0RF Rx Instructions: Has not been taking atorvastatin 20 mg tablet 20 mg PO DAILY aspirin 81 mg Tablet,Delayed Release (Dr/Ec) 81 mg PO DAILY Discharge Orders: Discharge Order (Routine); Ordered 06/04/22 Ordered By: Jimena Aleman Admission Data Admit Date/Time: 06/01/22 15:15 Attending Provider: Jimena Aleman Admit Provider: Alex White Primary Care Provider: Nikc Stearns Other Providers: Alex White ; Regis Larkin Other Interventions: Discharge Summary Assessment (RN) Last Done: 06/04/22 14:48
== END 2022-06-04 15:11 | disposition home or self-care (01) | DRG 206 ==
LOC: ED 10:23 → 2N 15:15 → SUATTDRO 15:15 → 2N 16:52
DX: Z79.899 Other long term (current) drug therapy; M79.7 Fibromyalgia; M54.9 Dorsalgia, unspecified; Z88.8 Allergy status to other drugs, medicaments and biological substances; R91.1 Solitary pulmonary nodule; I71.40 Abdominal aortic aneurysm, without rupture, unspecified; Z68.1 Body mass index [BMI] 19.9 or less, adult; E87.6 Hypokalemia; Z79.51 Long term (current) use of inhaled steroids; J43.9 Emphysema, unspecified; M25.512 Pain in left shoulder; R09.02 Hypoxemia; F17.210 Nicotine dependence, cigarettes, uncomplicated; Z66 Do not resuscitate; Z79.82 Long term (current) use of aspirin; M81.0 Age-related osteoporosis without current pathological fracture; E78.5 Hyperlipidemia, unspecified; G89.29 Other chronic pain

== ENCOUNTER 2024-06-22 14:12 | Inpatient (IN) ==
[2024-06-22 15:06] LABS: Base Excess VBG 11.4 mEq/L; HCO3 VBG 38 mmol/L; Oxygen Saturation VBG < 60.0 %; PCO2 VBG 54 mmHg (38-50); PO2 VBG 21 mmHg; pH VBG 7.45 (7.36-7.41)
--- NOTE | 2024-06-22 15:07 | XRay Report ---
XR chest 1V portable HISTORY: 74 years-old Female Chest pain, nonspecific COMPARISON: 06/01/2022 TECHNIQUE: AP view of the chest FINDINGS: Cardiac silhouette is unchanged. Severe pulmonary emphysema with chronic interstitial coarsening/fibr osis. Chronic rib fractures. No pneumothorax or large pleural effusion. Degenerative changes of the s houlders and spine. Mild patchy bibasilar opacities are new from prior. IMPRESSION: 1. Mild patchy bibasilar opacities may represent atelectasis versus pneumonitis. 2. Severe emphysema redemonstrated. ACT 112: Negative or not required by law. The above report was generated using voice recognition software. It may contain grammatical, syntax o r spelling errors. Electronically signed by: Fran Frausto M.D. 06/22/2024 3:06 PM
[2024-06-22 15:18] LABS: Basophils # (auto) 0.05 K/uL (0.00-0.20); Basophils % (auto) 0.2 %; Hematocrit (blood only) 37.3 % (37.0-47.0); Hemoglobin 12.9 g/dl (12.0-16.0); Immature Granulocytes % (auto) 0.9 %; Lymphocytes # (auto) 1.25 K/uL (1.20-3.40); Lymphocytes % (auto) 5.9 %; Mean Corpuscular Hemoglobin 31.4 pg (25.0-34.0); Mean Corpuscular Hgb Conc 34.6 g/dL (32.0-36.0); Mean Corpuscular Volume 90.8 fL (80.0-100.0); Mean Platelet Volume 9.4 fL (9.4-12.4); Monocytes # (auto) 1.62 K/uL (0.11-0.59); Monocytes % (auto) 7.6 %; Neutrophils # (auto) 18.08 K/uL (1.40-6.50); Neutrophils % (auto) 85.4 %; Platelet Count 481 K/uL (130-400); RDW Coefficient of Variation 12.4 % (11.5-14.5); RDW Standard Deviation 41.4 fL (36.4-46.3); Red Blood Count 4.11 M/uL (4.20-5.40)
[2024-06-22] MEDS: ALBUT/IPRATROP 3MG/0.5MG NEB 3 ML VIAL NEB STA ×2 (15:18→16:51)
[2024-06-22] MEDS: methylPREDNISolone 125 MG/2 ML VIAL IV STA (15:18)
[2024-06-22 15:28] LABS: Albumin Globulin Ratio 0.9 (0.9-2); Albumin Level 3.5 gm/dl (3.4-5.0); BUN Creatinine Ratio 12.5 (10-20); Bilirubin,Total 0.4 mg/dl (0.2-1.0); Creatinine Clr Calc Pharmacy 35.3 ml/min; Globulin 3.9 gm/dl (2.5-4.0); Potassium 3.1 mmol/L (3.5-5.1); Total Protein 7.4 gm/dl (6.0-8.3)
[2024-06-22 15:34] LABS: Troponin I High Sensitivity 41.5 pg/ml (0-14)
[2024-06-22 15:48] LABS: Partial Thromboplastin Time 28 Seconds (21-31); Prothrombin Time 11.1 Seconds (9.0-12.0)
[2024-06-22 16:07] LABS: D Dimer 2290 ug/L FEU (0-500)
[2024-06-22] MEDS: OPTIRAY 320 125ml IV ONE (16:41)
--- NOTE | 2024-06-22 17:08 | CT Scan Report ---
CT ANGIOGRAPHY OF THE CHEST, PULMONARY EMBOLUS PROTOCOL CLINICAL HISTORY: Cough. Evaluate for pulmonary embolus. COMPARISON STUDY: Chest CT June 01, 2022. Chest radiograph performed earlier today. TECHNIQUE: Following IV administration of 117 mL of Optiray, helical axial images of the chest were o btained utilizing the pulmonary embolus protocol. Maximal intensity projections and sagittal and cor onal reformats were viewed on an independent 3D workstation. IV contrast was administered without co mplication. Automated exposure control was utilized for the study. A dose lowering technique was ut ilized adhering to the principles of ALARA. CT DOSE: 319.91 mGy.cm FINDINGS: No pulmonary emboli are identified. There is no thoracic aortic dissection. Size of the he art is at the upper limits of normal. There is no pericardial effusion. An enlarged subcarinal lymph node measures approximately 3.2 x 1.6 cm. Severe emphysema with lung hyperexpansion is again noted. M oderate multifocal bilateral lower lobe and right middle lobe opacities are present. Multifocal mucus plugging is present. There is no pneumothorax or pleural effusion. No acute fractures within the bon y thorax are noted. Subpleural biapical opacities are unchanged and CT of June 01, 2022 and repr esent scarring. IMPRESSION: 1. No pulmonary emboli identified. 2. Multifocal right middle lobe and bilateral lobe airspace opacities suggestive of pneumonia. Associ ated mucous plugging. A follow-up chest CT in 2 months to ensure resolution is recommended. 3. Mildly enlarged subcarinal lymph node. This is likely reactive but should be assessed on follow-up CT to ensure resolution. 4. Severe emphysema. ACT 112: Negative or not required by law. Electronically signed by: Rajesh Howe M.D. 06/22/2024 5:06 PM
[2024-06-22] MEDS: PIPERACILLIN/TAZOBACTAM 4.5 GM/120 ML BAG IV ONE (17:54)
--- NOTE | 2024-06-22 18:33 | Emergency Department Note ---
History of Present Illness General Chief Complaint: Shortness of Breath/Dyspnea Stated Complaint: SOB Time Seen by Provider: 06/22/24 14:37 History of Present Illness Provider Complaint: shortness of breath Onset (ago): week(s) (1) Consistency/Duration: + progressively worsening Relieved By: + nothing Exacerbated By: + exertion and + coughing Known history of: COPD Associated symptoms: + cough, + wheezing, + sputum production and + chest congestion; no hemoptysis or no abdominal pain Related Data Home oxygen amount: none Home Medications Medication Instructions Recorded Confirmed Type albuterol sulfate 90 mcg/actuation 1 puff inhalation QID PRN Wheezing 04/22/20 06/01/22 History aerosol inhaler alendronate 70 mg tablet 70 mg PO WK 04/22/20 06/01/22 History butalbital 50 mg-acetaminophen 325 1 cap PO Q6H PRN Migraine Headache 04/22/20 06/01/22 History mg-caffeine 40 mg-codeine 30 mg cap calcium 600 mg (as 1 cap PO BID 04/22/20 06/01/22 History carbonate)-vitamin D3 5 mcg (200 unit) capsule (Calcium 600 + D(3)) carisoprodol 350 mg tablet 350 mg PO TID PRN Muscle Spasm 04/22/20 06/01/22 History cholecalciferol (vitamin D3) 25 25 mcg PO DAILY 04/22/20 06/01/22 History mcg (1,000 unit) tablet (Vitamin D3) multivit,[id number] 1 tab PO DAILY 04/22/20 06/01/22 History 13.5 mg-200 mcg-250 mcg tablet ([facility]) omeprazole 20 mg capsule,delayed 20 mg PO QAM 04/22/20 06/01/22 History release zolpidem 10 mg tablet 10 mg PO HS 04/22/20 06/01/22 History fluticasone furoate 100 1 ea inhalation DAILY #60 ea 01/12/22 06/01/22 Rx mcg-vilanterol 25 mcg/dose inhalation powder (Breo Ellipta) umeclidinium 62.5 mcg/actuation 1 inh inhalation QAM #30 ea 01/12/22 06/01/22 Rx blister powder for inhalation (Incruse Ellipta) aspirin 81 mg tablet,delayed 81 mg PO DAILY 06/01/22 06/01/22 History release atorvastatin 20 mg tablet 20 mg PO DAILY 06/01/22 06/01/22 History diclofenac sodium 1 % topical gel 2 g topical TID #100 grams 06/04/22 Rx Allergies Allergy/AdvReac Type Severity Reaction Status Date / Time sumatriptan [From Imitrex] Allergy Severe stopped Verified 01/23/22 10:54 breathing as per px Past Med/Surg History Problem List (Updated 06/22/24 @ 18:41 by Arturo Chaudhari MD) COPD (chronic obstructive pulmonary disease) (Acute) Pneumonia (Acute) Hypoxia (Acute) Acute exacerbation of chronic obstructive pulmonary disease (Acute) Hypoxemia (Acute) AAA (abdominal aortic aneurysm) without rupture Low BMI Arthritis Abnormal CXR Hypokalemia (Acute) Rib pain on left side Hypoxia Hypoxemia Abnormal CT scan of lung Pneumonia (Acute) COPD (chronic obstructive pulmonary disease) (Acute) Hypokalemia (Acute) Dehydration (Acute) Sepsis Hematuria Acute renal failure (Acute) Elevated lactic acid level (Acute) SBO (small bowel obstruction) (Acute) Fibromyalgia Migraine Hyperlipidemia Osteoporosis Lumbar disc disease Tobacco use (Acute) Sepsis (Acute) Medical History COPD (chronic obstructive pulmonary disease) Surgical History History of tonsillectomy and adenoidectomy Family History Father FH: glaucoma Social History Smoking Status: Current every day smoker Tobacco Type: Cigarettes Cigarettes Per Day: 15; Second Hand Exposure: No; Do You Dip or Chew Tobacco: No; Hx Alcohol Use: No Hx Substance Use: No Preferred Language: Ukrainian 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 Ability: Effective Ui Designer Required: No Beliefs That Will Affect Care: None marital status: / Current Living Situation: Family Current Living Situation Comment: Lives with son Feels Safe at Home: Yes Assistive Devices: None Physical Exam 2 Vital Signs: Vital Signs - 24 hr 06/22/24 14:13 06/22/24 14:13 06/22/24 14:59 Temperature 36.6 C Temperature Source Temporal Artery Sc an Pulse Rate 107 H 110 H Pulse Rate [Apical ] Pulse Rate from Sp O2 Sensor Pulse Rhythm Regular Respiratory Rate 18 28 H Respiratory Effort / Characteristics Respiratory Depth Respiratory Patter n Blood Pressure 102/60 Blood Pressure [Ri ght Arm] Blood Pressure Kathryn n 74 Blood Pressure Kathryn n [Right Arm] Pulse Oximetry 86 L 90 Oxygen Delivery Me thod Room Air Room Air Room Air Oxygen Flow Rate Sepsis Recent Feve r Within 48 Hours No Sepsis New/Unexpla ined Change in Men adam Status N/A Sepsis Action Take n by Nursing No Action Required Oxygen Flow Rate - Titration 06/22/24 15:09 06/22/24 15:12 06/22/24 15:18 Temperature Temperature Source Pulse Rate 93 H 95 H Pulse Rate [Apical ] Pulse Rate from Sp O2 Sensor 88 93 H Pulse Rhythm Respiratory Rate 31 H 26 H Respiratory Effort / Characteristics Respiratory Depth Respiratory Patter n Blood Pressure 125/78 Blood Pressure [Ri ght Arm] Blood Pressure Kathryn n 93 Blood Pressure Kathryn n [Right Arm] Pulse Oximetry 91 91 Oxygen Delivery Me thod Oxygen Flow Rate Sepsis Recent Feve r Within 48 Hours Sepsis New/Unexpla ined Change in Men adam Status Sepsis Action Take n by Nursing Oxygen Flow Rate - Titration 06/22/24 15:18 06/22/24 15:27 06/22/24 15:30 Temperature Temperature Source Pulse Rate 87 90 Pulse Rate [Apical ] Pulse Rate from Sp O2 Sensor 91 H 95 H Pulse Rhythm Respiratory Rate 29 H 21 Respiratory Effort / Characteristics Respiratory Depth Respiratory Patter n Blood Pressure 133/78 Blood Pressure [Ri ght Arm] Blood Pressure Kathryn n 105 Blood Pressure Kathryn n [Right Arm] Pulse Oximetry 93 98 Oxygen Delivery Me thod Oxygen Flow Rate Sepsis Recent Feve r Within 48 Hours Sepsis New/Unexpla ined Change in Men adam Status Sepsis Action Take n by Nursing Oxygen Flow Rate - Titration 06/22/24 15:31 06/22/24 15:39 06/22/24 16:00 Temperature Temperature Source Pulse Rate 98 H 88 Pulse Rate [Apical ] Pulse Rate from Sp O2 Sensor 89 Pulse Rhythm Respiratory Rate 28 H Respiratory Effort / Characteristics Respiratory Depth Respiratory Patter n Blood Pressure 131/77 Blood Pressure [Ri ght Arm] Blood Pressure Kathryn n 85 Blood Pressure Kathryn n [Right Arm] Pulse Oximetry 93 Oxygen Delivery Me thod Oxygen Flow Rate Sepsis Recent Feve r Within 48 Hours Sepsis New/Unexpla ined Change in Men adam Status Sepsis Action Take n by Nursing Oxygen Flow Rate - Titration 06/22/24 16:00 06/22/24 16:06 06/22/24 16:13 Temperature Temperature Source Pulse Rate 97 H 95 H Pulse Rate [Apical ] 89 Pulse Rate from Sp O2 Sensor 97 H 77 Pulse Rhythm Respiratory Rate 31 H 30 H 20 Respiratory Effort / Characteristics Non-Labored Sponta neous Respiratory Depth Normal Respiratory Patter n Regular Blood Pressure Blood Pressure [Ri ght Arm] 131/77 Blood Pressure Kathryn n Blood Pressure Kathryn n [Right Arm] 95 Pulse Oximetry 94 94 95 Oxygen Delivery Me thod Nasal Cannula Oxygen Flow Rate 2 Sepsis Recent Feve r Within 48 Hours Sepsis New/Unexpla ined Change in Men adam Status Sepsis Action Take n by Nursing Oxygen Flow Rate - Titration 06/22/24 16:30 06/22/24 16:30 06/22/24 16:52 Temperature Temperature Source Pulse Rate Pulse Rate [Apical ] Pulse Rate from Sp O2 Sensor Pulse Rhythm Respiratory Rate Respiratory Effort / Characteristics Respiratory Depth Respiratory Patter n Blood Pressure 118/71 Blood Pressure [Ri ght Arm] Blood Pressure Kathryn n 85 Blood Pressure Kathryn n [Right Arm] Pulse Oximetry 97 88 L Oxygen Delivery Me thod Nasal Cannula Oxygen Flow Rate 2 Sepsis Recent Feve r Within 48 Hours Sepsis New/Unexpla ined Change in Men adam Status Sepsis Action Take n by Nursing Oxygen Flow Rate - Titration 3 06/22/24 18:00 Temperature Temperature Source Pulse Rate Pulse Rate [Apical ] 94 H Pulse Rate from Sp O2 Sensor Pulse Rhythm Respiratory Rate 24 Respiratory Effort / Characteristics Non-Labored Sponta neous Respiratory Depth Normal Respiratory Patter n Regular Blood Pressure Blood Pressure [Ri ght Arm] 130/70 Blood Pressure Kathryn n Blood Pressure Kathryn n [Right Arm] 90 Pulse Oximetry 92 Oxygen Delivery Me thod Nasal Cannula Oxygen Flow Rate 3 Sepsis Recent Feve r Within 48 Hours Sepsis New/Unexpla ined Change in Men adam Status Sepsis Action Take n by Nursing Oxygen Flow Rate - Titration Physical Exam: Physical Exam GENERAL: oriented to person, place, and time. appears well-developed and well- nourished. HENT: Exam performed. - Head: Normocephalic and atraumatic. EYES: Conjunctivae and EOM are normal. Right eye exhibits no discharge. Left eye exhibits no discharge. No scleral icterus. NECK: Normal range of motion. Neck supple. No JVD present. CV: Normal rate, regular rhythm, normal heart sounds and intact distal pulses. There is no peripheral edema. Palpable radial pulses bue. PULM/CHEST: Diminished breath sounds bilaterally with scant expiratory wheezes. ABD: The abdomen is soft. There is no tenderness. NEURO: Motor and sensation grossly intact. SKIN: Skin is warm and dry. He is not diaphoretic. PSYCH: normal mood and affect. Behavior is normal. Judgment and thought content normal. Course Course 1437: The patient was evaluated in room C6. A complete history and physical exam was performed Cardiac monitoring: An order was placed for continuous cardiac monitoring. The monitor shows a rate of 110 with sinus rhythm interpreted by me Patient found to be hypoxic on room air. Supplemental oxygen was applied which improved the patient's oxygen saturation. 1623: Patient's oxygen saturation stable on room supplemental oxygen. D-dimer elevated. CT of the chest will be ordered. 1839: Vital signs stable on supplemental oxygen.Labs show white blood cell count of 21.2. VBG unremarkable. Potassium 3.1. High-sensitivity troponin elevated. CTA of the chest shows no PE but does show pneumonia. Zosyn ordered for the patient. Discussed the case with Dr. Harrison who agreed to admit the patient to his service. Administered Medications Discontinued Medications Albuterol (Albut/Ipratrop 3mg/0.5mg Neb 3 Ml Vial) 3 ml NEB NOW STA; Protocol Stop: 06/22/24 14:45 Last Admin: 06/22/24 15:18 Dose: 3 ml Documented By: DALLAS Albuterol (Albut/Ipratrop 3mg/0.5mg Neb 3 Ml Vial) 3 ml NEB NOW STA; Protocol Stop: 06/22/24 16:24 Last Admin: 06/22/24 16:51 Dose: 3 ml Documented By: DALLAS Piperacillin Sod/Tazobactam Sod (Zosyn) 4.5 gm in 120 mls @ 240 mls/hr IV NOW ONE Stop: 06/22/24 17:55 Last Infusion: 06/22/24 18:27 Dose: Infused Documented By: Admin: 06/22/24 17:54 Dose: 240 mls/hr Documented By: DALLAS Ioversol (Optiray 320 125ml) 117 ml IV ONCE ONE Stop: 06/22/24 16:41 Last Admin: 06/22/24 16:41 Dose: 117 ml Documented By: GINETTE Methylprednisolone (Methylprednisolone 125 Mg/2 Ml Vial) 125 mg IV NOW STA Stop: 06/22/24 14:45 Last Admin: 06/22/24 15:18 Dose: 125 mg Documented By: DALLAS Medical Decision Making Laboratory Data Attestation: I reviewed the patient's lab results. 06/22/24 14:55 06/22/24 14:55 Lab Results 06/22/24 06/22/24 Range/Units 14:55 16:55 WBC 21.20 H (4.8-10.8) K/ul RBC 4.11 L (4.20-5.40) M/uL Hgb 12.9 (12.0-16.0) g/dl Hct 37.3 (37.0-47.0) % MCV 90.8 (80.0-100.0) fL MCH 31.4 (25.0-34.0) pg MCHC 34.6 (32.0-36.0) g/dL RDW Std Deviation 41.4 (36.4-46.3) fL RDW Coeff of Nakul 12.4 (11.5-14.5) % Plt Count 481 H (130-400) K/uL MPV 9.4 (9.4-12.4) fL Immature Gran % (Auto) 0.9 % Neut % (Auto) 85.4 % Lymph % (Auto) 5.9 % [place] % (Auto) 7.6 % Eos % (Auto) 0.0 % Baso % (Auto) 0.2 % Neut # (Auto) 18.08 H (1.40-6.50) K/uL Lymph # (Auto) 1.25 (1.20-3.40) K/uL [place] # (Auto) 1.62 H (0.11-0.59) K/uL Eos # (Auto) 0.00 (0.00-0.50) K/uL Baso # (Auto) 0.05 (0.00-0.20) K/uL Immature Gran # (Auto) 0.20 (0.01-0.20) K/uL PT 11.1 (9.0-12.0) Seconds INR 1.0 (0.9-1.1) APTT 28 (21-31) Seconds PTT Ratio 1.0 D-Dimer 2290 H* (0-500) ug/L FEU VBG pH 7.45 H (7.36-7.41) VBG pCO2 54 H (38-50) mmHg VBG pO2 21 mmHg VBG HCO3 38 mmol/L VBG O2 Saturation < 60.0 % VBG Base Excess 11.4 mEq/L Sodium 136 (136-145) mmol/L Potassium 3.1 L (3.5-5.1) mmol/L Chloride 93 L (98-107) mmol/L Carbon Dioxide 34 H (21-32) mmol/L Anion Gap 9 (3-11) BUN 8 (6-23) mg/dl Creatinine 0.64 (0.6-1.2) mg/dl Est Cr Clr Drug Dosing 35.3 ml/min eGFR 92.68 BUN/Creatinine Ratio 12.5 (10-20) Glucose 129 H (70-99(Fasting)) mg/dl Calcium 10.0 (8.6-10.3) mg/dl Total Bilirubin 0.4 (0.2-1.0) mg/dl AST 20 (13-39) U/L ALT 16 (7-52) U/L Alkaline Phosphatase 119 H (34-104) U/L Troponin I High Sens 41.5 H 31.0 H D (0-14) pg/ml Total Protein 7.4 (6.0-8.3) gm/dl Albumin 3.5 (3.4-5.0) gm/dl Globulin 3.9 (2.5-4.0) gm/dl Albumin/Globulin Ratio 0.9 (0.9-2) Imaging Data Radiologist's Impression: Chest X-Ray 06/22/24 14:24 XR chest 1V portable HISTORY: 74 years-old Female Chest pain, nonspecific COMPARISON: 06/01/2022 TECHNIQUE: AP view of the chest FINDINGS: Cardiac silhouette is unchanged. Severe pulmonary emphysema with chronic interstitial coarsening/fibrosis. Chronic rib fractures. No pneumothorax or large pleural effusion. Degenerative changes of the shoulders and spine. Mild patchy bibasilar opacities are new from prior. IMPRESSION: 1. Mild patchy bibasilar opacities may represent atelectasis versus pneumonitis. 2. Severe emphysema redemonstrated. ACT 112: Negative or not required by law. The above report was generated using voice recognition software. It may contain grammatical, syntax or spelling errors. Electronically signed by: Fran Frausto M.D. 06/22/2024 3:06 PM Chest CTA 06/22/24 16:23 CT ANGIOGRAPHY OF THE CHEST, PULMONARY EMBOLUS PROTOCOL CLINICAL HISTORY: Cough. Evaluate for pulmonary embolus. COMPARISON STUDY: Chest CT June 01, 2022. Chest radiograph performed earlier today. TECHNIQUE: Following IV administration of 117 mL of Optiray, helical axial images of the chest were obtained utilizing the pulmonary embolus protocol. Maximal intensity projections and sagittal and coronal reformats were viewed on an independent 3D workstation. IV contrast was administered without complication. Automated exposure control was utilized for the study. A dose lowering technique was utilized adhering to the principles of ALARA. CT DOSE: 319.91 mGy.cm FINDINGS: No pulmonary emboli are identified. There is no thoracic aortic dissection. Size of the heart is at the upper limits of normal. There is no pericardial effusion. An enlarged subcarinal lymph node measures approximately 3.2 x 1.6 cm. Severe emphysema with lung hyperexpansion is again noted. Moderate multifocal bilateral lower lobe and right middle lobe opacities are present. Multifocal mucus plugging is present. There is no pneumothorax or pleural effusion. No acute fractures within the bony thorax are noted. Subpleural biapical opacities are unchanged and CT of June 01, 2022 and represent scarring. IMPRESSION: 1. No pulmonary emboli identified. 2. Multifocal right middle lobe and bilateral lobe airspace opacities suggestive of pneumonia. Associated mucous plugging. A follow-up chest CT in 2 months to ensure resolution is recommended. 3. Mildly enlarged subcarinal lymph node. This is likely reactive but should be assessed on follow-up CT to ensure resolution. 4. Severe emphysema. ACT 112: Negative or not required by law. Electronically signed by: Rajesh Howe M.D. 06/22/2024 5:06 PM ECG Data Attestation: I personally reviewed and interpreted this ECG as follows: Interpretation: Sinus tachycardia with rate of 108. CO 100 QRS [address] elevation or ST depression. No delta wave. [facility] Narrative 1437: The patient was evaluated in room C6. A complete history and physical exam was performed Cardiac monitoring: An order was placed for continuous cardiac monitoring. The monitor shows a rate of 110 with sinus rhythm interpreted by me Patient found to be hypoxic on room air. Supplemental oxygen was applied which improved the patient's oxygen saturation. 1623: Patient's oxygen saturation stable on room supplemental oxygen. D-dimer elevated. CT of the chest will be ordered. 1839: Vital signs stable on supplemental oxygen.Labs show white blood cell count of 21.2. VBG unremarkable. Potassium 3.1. High-sensitivity troponin elevated. CTA of the chest shows no PE but does show pneumonia. Zosyn ordered for the patient. Discussed the case with Dr. Harrison who agreed to admit the patient to his service. Impression & Plan Hypoxia, Pneumonia, COPD (chronic obstructive pulmonary disease) Critical Care Time Critical Care Time: Yes Total Critical Care Time: 47 I have personally spent greater than 47 minutes of critical care time in the direct management of this patient. This includes bedside care, interpretation of diagnostic studies, and testing, discussion with consultants, patient, and family members, and other required patient management activities. This 47 minutes is in excess of all separately billable procedures. Discharge Plan Visit Data Chief Complaint: Shortness of Breath/Dyspnea Stated Complaint: SOB ED Provider: Arturo Chaudhari Discharge Problem: Hypoxia, Pneumonia, COPD (chronic obstructive pulmonary disease) Patient Disposition: Admitted As Inpatient Forms Stand Alone Forms: [facility] Prescriptions Prescriptions: No Action alendronate 70 mg tablet 70 mg PO WK carisoprodol 350 mg tablet 350 mg PO TID PRN (Reason: Muscle Spasm) omeprazole 20 mg capsule,delayed release(DR/EC) 20 mg PO QAM zolpidem 10 mg tablet 10 mg PO HS [id number] [id number] mg capsule 1 cap PO Q6H PRN (Reason: Migraine Headache) Calcium 600 + D(3) 600 mg calcium- 200 unit Capsule 1 cap PO BID cholecalciferol (vitamin D3) [Vitamin D3] 25 mcg (1,000 unit) Tablet 25 mcg PO DAILY [facility] 13.5-200-250 mg-mcg-mcg Tablet 1 tab PO DAILY albuterol sulfate 90 mcg/actuation Hfa Aerosol Inhaler 1 puff INHALATION QID PRN (Reason: Wheezing) Incruse Ellipta 62.5 mcg/actuation Blister With Device 1 inh inhalation QAM Qty: 30 0RF Rx Instructions: Has not been taking fluticasone furoate-vilanterol [Breo Ellipta] 100-25 mcg/dose Blister With Device 1 ea inhalation DAILY Qty: 60 0RF Rx Instructions: Has not been taking atorvastatin 20 mg tablet 20 mg PO DAILY aspirin 81 mg Tablet,Delayed Release (Dr/Ec) 81 mg PO DAILY diclofenac sodium 1 % gel 2 g topical TID Qty: 100 0RF Rx Instructions: Over left posterior ribs Referrals Referrals: Nick Stearns DO [Primary Care Provider] - Discharge Problem: Pneumonia Qualifiers: Pneumonia type: due to unspecified organism Laterality: unspecified laterality Lung location: unspecified part of lung Qualified Code(s): J18.9 - Pneumonia, unspecified organism COPD (chronic obstructive pulmonary disease) Qualifiers: COPD type: unspecified COPD Qualified Code(s): J44.9 - Chronic obstructive pulmonary disease, unspecified
[2024-06-22] MEDS ORDERED: ALUMINUM/MAGNESIUM SUSP 30 ML UDC PO PRN (18:55)
[2024-06-22] MEDS ORDERED: POLYETHYLENE (MIRALAX) 17 GM PACK PO PRN (18:55)
--- NOTE | 2024-06-22 19:04 | History & Physical Report ---
Date of Service June 22, 2024 Assessment & Plan (1) Pneumonia: Plan Multifocal pneumonia Mild COPD exacerbation Continue Zosyn, add probiotic, continue DuoNebs and Mucomyst, and tapering dose of steroid. Get blood culture and sputum culture. Other chronic medical conditions: CAD, COPD, osteoporosis, GERD---- continue with/resume home meds as when able. DVT prophylaxis: Heparin subcu Full code History of Present Illness Chief Complaint: shortness of breath Primary Care Provider: Nick Stearns DO 74-year-old lady with PMH of group C COPD, HLD, right renal artery stenosis, celiac artery stenosis, superior mesenteric artery stenosis, GERD, Warthin's tumor, fibromyalgia, age-related osteoporosis, tobacco use disorder presented to the ED with complaint of shortness of breath for several months, progressively getting worse since last couple of weeks. She also reports cough with greenish sputum for about 1 week duration, denies fever/sore throat/chest pain. She reports poor appetite and patient reports not moving around much, she reports progressively getting weaker. Patient denies belly pain or acute changes in her bowel or bladder habit. Patient admits to smoking 1 packs a day, has been smoking for more than 50 years, denies alcohol or recreational drug use. Medications reviewed with the patient and her daughters at bedside. Plan of care discussed with them in detail, they voiced understanding. DNR/DNI as per my discussion with the patient. Allergies Allergy/AdvReac Type Severity Reaction Status Date / Time sumatriptan [From Imitrex] Allergy Severe stopped Verified 01/23/22 10:54 breathing as per px Home Medications Medication Instructions Recorded Confirmed Type albuterol sulfate 90 mcg/actuation 1 puff inhalation QID PRN Wheezing 04/22/20 06/01/22 History aerosol inhaler alendronate 70 mg tablet 70 mg PO WK 04/22/20 06/01/22 History butalbital 50 mg-acetaminophen 325 1 cap PO Q6H PRN Migraine Headache 04/22/20 06/01/22 History mg-caffeine 40 mg-codeine 30 mg cap calcium 600 mg (as 1 cap PO BID 04/22/20 06/01/22 History carbonate)-vitamin D3 5 mcg (200 unit) capsule (Calcium 600 + D(3)) carisoprodol 350 mg tablet 350 mg PO TID PRN Muscle Spasm 04/22/20 06/01/22 History cholecalciferol (vitamin D3) 25 25 mcg PO DAILY 04/22/20 06/01/22 History mcg (1,000 unit) tablet (Vitamin D3) multivit,[id number]-#[id number] 1 tab PO DAILY 04/22/20 06/01/22 History 13.5 mg-200 mcg-250 mcg tablet ([facility]) omeprazole 20 mg capsule,delayed 20 mg PO QAM 04/22/20 06/01/22 History release zolpidem 10 mg tablet 10 mg PO HS 04/22/20 06/01/22 History fluticasone furoate 100 1 ea inhalation DAILY #60 ea 01/12/22 06/01/22 Rx mcg-vilanterol 25 mcg/dose inhalation powder (Breo Ellipta) umeclidinium 62.5 mcg/actuation 1 inh inhalation QAM #30 ea 01/12/22 06/01/22 Rx blister powder for inhalation (Incruse Ellipta) aspirin 81 mg tablet,delayed 81 mg PO DAILY 06/01/22 06/01/22 History release atorvastatin 20 mg tablet 20 mg PO DAILY 06/01/22 06/01/22 History diclofenac sodium 1 % topical gel 2 g topical TID #100 grams 06/04/22 Rx Past Med/Surg History Problem List (Updated 06/22/24 @ 18:41 by Arturo Chaudhari MD) COPD (chronic obstructive pulmonary disease) (Acute) Pneumonia (Acute) Hypoxia (Acute) Acute exacerbation of chronic obstructive pulmonary disease (Acute) Hypoxemia (Acute) AAA (abdominal aortic aneurysm) without rupture Low BMI Arthritis Abnormal CXR Hypokalemia (Acute) Rib pain on left side Hypoxia Hypoxemia Abnormal CT scan of lung Pneumonia (Acute) COPD (chronic obstructive pulmonary disease) (Acute) Hypokalemia (Acute) Dehydration (Acute) Sepsis Hematuria Acute renal failure (Acute) Elevated lactic acid level (Acute) SBO (small bowel obstruction) (Acute) Fibromyalgia Migraine Hyperlipidemia Osteoporosis Lumbar disc disease Tobacco use (Acute) Sepsis (Acute) Medical History COPD (chronic obstructive pulmonary disease) Surgical History History of tonsillectomy and adenoidectomy Family History Father FH: glaucoma Social History Smoking Status: Current every day smoker Tobacco Type: Cigarettes Cigarettes Per Day: 15; Second Hand Exposure: No; Do You Dip or Chew Tobacco: No; Hx Alcohol Use: No Hx Substance Use: No Preferred Language: [place] Citizen 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 Ability: Effective B[employer]er Required: No Beliefs That Will Affect Care: None marital status: / Current Living Situation: Family Current Living Situation Comment: Lives with son Feels Safe at Home: Yes Assistive Devices: None Review of Systems 2 Review of Systems: Negative otherwise mentioned in HPI. Physical Exam Physical Exam: GENERAL: Alert and oriented x3. NAD, on 3L NC O2. appears old/frail/weak. HEENT: No pallor, no icterus. Pupils equal, round and reactive to light. Oral mucosa moist. NECK: No JVD, no neck masses. HEART: S1 and S2 heard. Regular rate and rhythm. HR in 90s. No murmur, no gallop. RESPIRATORY SYSTEM: Normal AP diameter. No accessory muscle use. No wheezing, no crackles. decreased breath sounds, occ b/l rhonchi. ABDOMEN: Soft, bowel sounds present, nontender, no distention. CENTRAL NERVOUS SYSTEM: No facial droop. Speech is clear. Obeys simple commands. Moves extremities. EXTREMITIES: No edema, no erythema seen. Results & Data Results & Data Vital Signs (Past 12 Hours) Vital Signs Temp Pulse Pulse Resp BP BP Pulse Ox 06/22/24 18:00 94 H 24 130/70 92 06/22/24 16:52 88 L 06/22/24 16:30 97 06/22/24 16:30 118/71 06/22/24 16:13 89 20 131/77 95 06/22/24 16:06 95 H 30 H 94 06/22/24 16:00 97 H 31 H 94 06/22/24 16:00 131/77 06/22/24 15:39 88 28 H 93 06/22/24 15:31 98 H 06/22/24 15:30 133/78 06/22/24 15:27 90 21 98 06/22/24 15:18 87 29 H 93 10/21/24 15:18 125/78 06/22/24 15:12 95 H 26 H 91 06/22/24 15:09 93 H 31 H 91 06/22/24 14:59 110 H 28 H 90 06/22/24 14:13 06/22/24 14:13 36.6 C 107 H 18 102/60 86 L O2 Del Method O2 Flow Rate 06/22/24 18:00 Nasal Cannula 3 06/22/24 16:52 Nasal Cannula 2 06/22/24 16:30 06/22/24 16:30 06/22/24 16:13 Nasal Cannula 2 06/22/24 16:06 06/22/24 16:00 06/22/24 16:00 06/22/24 15:39 06/22/24 15:31 06/22/24 15:30 06/22/24 15:27 06/22/24 15:18 06/22/24 15:18 06/22/24 15:12 06/22/24 15:09 06/22/24 14:59 Room Air 06/22/24 14:13 Room Air 06/22/24 14:13 Room Air (1) Pneumonia Laterality: unspecified laterality Lung location: unspecified part of lung Pneumonia type: due to unspecified organism Qualified Code(s): J18.9 - Pneumonia, unspecified organism
[2024-06-22 20:15] LABS: Adenovirus PCR Not Detected (NotDetected); Bordetella parapertussis PCR Not Detected (NotDetected); Bordetella pertussis PCR Not Detected (NotDetected); Chlamydia pneumoniae PCR Not Detected (NotDetected); Coronavirus 229E PCR Not Detected (NotDetected); Coronavirus CoV-2 (COVID19)PCR Not Detected (NotDetected); Coronavirus HKU1 PCR Not Detected (NotDetected); Coronavirus NL63 PCR Not Detected (NotDetected); Coronavirus OC43PCR Not Detected (NotDetected); Human Metapneumovirus PCR Not Detected (NotDetected); Influenza A PCR Not Detected (NotDetected); Influenza B PCR Not Detected (NotDetected); Mycoplasma pneumoniae PCR Not Detected (NotDetected); Parainfluenza Virus 1 PCR Not Detected (NotDetected); Parainfluenza Virus 2 PCR Not Detected (NotDetected); Parainfluenza Virus 3 PCR Not Detected (NotDetected); Parainfluenza Virus 4 PCR Not Detected (NotDetected); Respiratory Syncytial VirusPCR Not Detected (NotDetected); Rhinovirus/Enterovirus PCR DETECTED (NotDetected)
[2024-06-22] MEDS: ALBUT/IPRATROP 3MG/0.5MG NEB 3 ML VIAL NEB SCH (20:40)
[2024-06-22] MEDS: ACETYLCYSTEINE 20% INHAL SOLN 4ML ***DISPENSED BY RESP. INH SCH (20:41)
[2024-06-22] MEDS: HEPARIN SOD 5,000 UNIT/0.5 ML VIAL SQ SCH (21:45)
--- OUTSIDE RECORDS SUMMARY | 2024-06-22 22:02 | External Medical Summary | Summary of Care ---
Author Name Unknown Organization [facility] Address [address] [place] [address] Phone [phone] Care Team Providers Care Export Sales Assistant Name Role Phone Nick Stearns DO Primary Care Provider [phone] Encounter Details Date Type Department Care Team (Late st Contact Info) Description 05/06/2024 External Data Patient Risk Medial Allergies Active Allergy Reactions Criticality Noted Date Comments Lorazepam 05/02/2020 Pulled out NG tube---behavioral issues Triptans 01/03/2009 Pregabalin 01/03/2009 Methylprednisolone 01/03/2009 documented as of this encounter (statuses as of 05/06/2024) Medications Medication Sig Dispensed Refills Start Date End Date Status CALCIUM + D 600-200 MG-UNIT PO TABSIndications:Other osteoporosis one pill twice a day 60 5 9 Active VITAMIN D-3 1000 UNITS PO CAPS Take by mouth at bedtime. Active ALENDRONATE SODIUM 70 MG PO TABS 1 pill once a week with 8 oz. water 30 minutes before first meal of the day. Remain upright for 30 min after taking pill 4 Active HYDROCODONE-ACETAMINOPHEN 5-325 MG PO TABS Take 1 Tablet by mouth in the morning and 1 Tablet at noon and 1 Tablet before bedtime. 5 Active Multiple Vitamins-Minerals (ZAID MULTIVITAMIN FOR WOMEN) Tablet Take 1 Tab by mouth daily. 7 Active zolpidem (AMBIEN) 10 MG Tablet Take 1 Tablet by mouth at bedtime. 0 Active Carisoprodol 350 MG Oral Tablet (SOMA) Take 1 Tablet by mouth 3 times a day as needed. 0 Active Aspirin 81 MG Oral Tablet Delayed Release Take 1 Tablet by mouth daily. PM 1 Active Albuterol Sulfate HFA 108 (90 Base) MCG/ACT Inhalation Aerosol SolutionIndications:COPD, moderate (HCC) Use up to 4 times daily as needed 18 g 5 1 Active Probiotic 250 MG Oral Capsule Take by mouth . Active Benzonatate 100 MG Oral Capsule (Tessalon Perles)Indications:Acute cough Take 1 Capsule by mouth 3 times a day as needed for Cough. Do not cut, crush, or chew. 50 Capsule 1 3 Active Compressor NebulizerIndications:Bron chitis, complicated Inhale via nebulizer. Use as directed. Tubing, medi cup and inhaler device 1 Each 1 3 Active Ipratropium-Albuterol 0.5-2.5 (3) MG/3ML Inhalation Solution (Duoneb)Indications:Bronc hitis, complicated Inhale 3 mL via nebulizer in the morning and 3 mL in the evening. 60 mL 5 3 Active Additional Information Patient taking differently:3 mL Nebulizer BID (0700,1900),Indications: as needed, Reported on 03/12/2023 Atorvastatin Calcium 20 MG Oral Tablet (Lipitor)Indications:Pure hypercholesterolemia Take 1 Tablet by mouth at bedtime. 90 Tablet 3 4 Active Potassium Chloride ER 10 MEQ Oral Capsule Extended ReleaseIndications:[place] lemia Take 1 Capsule by mouth in the morning. 90 Capsule 3 4 Active Mirtazapine 45 MG Oral Tablet (Remeron)Indications:Curr ent moderate episode of major depressive disorder without prior episode (HCC) Take 1 Tablet by mouth at bedtime. 90 Tablet 3 4 Active Omeprazole 20 MG Oral Capsule Delayed Release (PriLOSEC)Indications:Gas troesophageal reflux disease without esophagitis Take 1 Capsule by mouth in the morning. 90 Capsule 1 4 Active Grbrjbnqam-HUFK-Vpzevaba 50-300-40 MG Oral Capsule (Fioricet)Indications:Jose susan variant Take 1 Capsule by mouth every 6 hours as needed for Headache. 60 Capsule 4 Active documented as of this encounter (statuses as of 05/06/2024) Active Problems Problem Noted Date Diagnosed Date Right renal artery stenosis 02/24/2023 Celiac artery stenosis 02/24/2023 Superior mesenteric artery stenosis 02/24/2023 Current moderate episode of major depressive disorder without prior episode 07/18/2022 Unspecified severe protein-calorie malnutrition 06/11/2022 Warthin's tumor 12/20/2021 COPD, group C, by GOLD 2017 classification 07/10 Overview: Per COPD GOLD Classification Age-related osteoporosis wit hout current pathological fracture 06/19/2021 Pure hypercholesterolemia 04/12/2020 Gastroesophageal reflux disease without esophagi tis 04/12/2020 Migraine variant 12/13/2016 Parotid mass 04/13/2016 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 08/11/2015 Polyarticular osteoarthritis 02/05/2013 Fibromyalgia documented as of this encounter (statuses as of 05/06/2024) Resolved Problems Problem Noted Date Diagnosed Date Resolved Date Prediabetes 02/12/2022 08/15/2023 Overview: Per Prediabetes protocol Rheumatoid arthritis with po sitive rheumatoid factor 10/11/2017 02/12/2019 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 Mixed dyslipidemia 02/22/2009 Overview: Per Lipid Taxonomy. Other osteoporosis without c urrent pathological fracture 10/20/2021 Overview: ICD-10 update of inactive term Migraine 10/11/2017 Osteoarthrosis, unspecified whether generalized or localized, other specified sites 10/11/2017 documented as of this encounter (statuses as of 05/06/2024) Immunizations Name Administration Dates Next Due COVID-19 mRNA, LNP-s, No Pre serve, 2-Dose Series (Moderna) 12/23/2020,11/18/2020 COVID-19, MRNA-LNP, 23-24, P F, 30 MCG/0.3 mL, 12 YRS AND ABOVE, IM (BackerKit-ComirnatEasy Bill Online) 08/02/2023 COVID-19, mRNA, LNP-s, PF, B ooster, 100mcg/0.5mg (Moderna) 03/26/2022,08/14/2021 Covid-19, Mrna, Lnp-s, Pf, B ivalent, 50 Mcg, IM, 12 yrs and above (Moderna) 06/15/2022 Pneumococcal Conjugate Vacc, 13 Valent (Prevnar) 03/15/2016 Pneumococcal Polysaccharide PPV23 (Pneumovax) 02/04/2015,01/03/2009 RSV Vac., Bivalent, Perfusio n F, Pf,0.5 Ml (Abrysvo) 12/13/2023 Season Influenza, Quad, PF, Adjuvanted, 65+ Yrs, IM (FLUAD) 05/24/2022 Seasonal Influenza, PF, 6 M & above, IM , (FluLaval or Fluzone) 06/03/2020,08/14/2018,06/06/2017 Seasonal Influenza, Quadriva lent Hd (Fluzone Hd) 08/02/2023,05/15/2021 Seasonal Influenza, Quadriva lent, No Preserve, IM 08/09/2016,08/11/2015 Seasonal Influenza, Trivalen t, (IIV3), with Preserv, (Fluzone) 08/18/2013,07/30/2012,08/01/2010 Seasonal Influenza, Trivalen t, Adjuvanted, 65+ YRS, PF, (Fluad) 08/21/2019 TDAP (age 10 and older)(Boostrix) 10/20/2021 TDAP, Age 7 and older, IM (Adacel) 02/15/2010 Varicella Zoster Vaccine (Adult) 02/03/2013 Zoster Vaccine Recombinant (Shingrix) 01/10/2021 ,07/18/2020 documented as of this encounter Social History Tobacco Use Types Packs/Day Years Used Date Smoking Tobacco: Every Day Cigarettes 0.5 51 Passive Smoke Exposure: Current Smokeless Tobacco: Never Alcohol Use Standard Drinks/Week Comments No 0 (1 standard drink = 0.6 oz pur e alcohol) PHQ-2 Answer Date Recorded PHQ Adult Total Score 0 02/22/2023 Hunger Vital Sign Answer Date Recorded Within the past 12 months, y ou worried that your food would run out before you got the money to buy more. Never true 02/23/20 23 Within the past 12 months, t he food you bought just didn't last and you didn't have money to get more. Never true 02/22/2023 Sex and Gender Information Value Date Recorded Sex Assigned at Female 10/20/2021 11:32 AM EST Gender Identity Female 10/20/2021 11:32 AM EST Sexual Orientation Straight 10/20/2021 11 :32 AM EST Job Start Date Occupation Industry Not on file Not on file Not on file documented as of this encounter Plan of Treatment Upcoming Encounters Date Type Department Care Team (Late st Contact Info) Description 08/21/2024 3:40 PM EST Office Visit Family Practice [address], [place] [address] [place] [address] Nick Stearns, [address] [place] [address] Health Maintenance Due Date Last Done Comments Colonoscopy 1995 Fecal Occult Blood Test 1995 Sigmoidoscopy 1995 Adult Wellness Visit 01/25/2016 *ADVANCE DIRECTIVE NOT ON FILE 01/21/2022 COVID-19 Vaccine ( season) 2024 08/02/2023, 06/15/2022, 03/26/2022, Additional history exists Influenza Vaccine (FLU shot) (#1) 2024 08/02/2023, 05/24/2022, 05/15/2021, Additional history exists Cologuard 07/04/2024 07/04/2021, 06/03, 06/21/2021 Colorectal Cancer Screening 07/04/2024 Depression Monitoring 08/02/2024 08/02/2023 DISCUSS TOBACCO CESSATION (REFER TO SMARTSET #3291) 12/12/2024 12/13/2023 (Discussed) DXA Scan 12/24/2024 12/24/2022, 07/03, 05/15/2018, Additional history exists O2 ASSESSMENT COMPLETED IN PAST YEAR FOR COPD 04/17/2025 04/17/2024 Mammogram 04/30/2025 04/30/2024, 04/02, 04/11/2022, Additional history exists DTap/Tdap Vaccines (3 - Td or Tdap) 10/20/2031 10/20/2021, 02/15/2010 Pneumococcal Vaccine: 65+ Years Completed 03/15/2016, 02/04/2015, 01/03/2009 VITAMIN D LEVEL ONCE IN A LIFETIME-USE SMARTSET# [id number] Completed 04/18/2018, 10/11/2017, 02/15/2010 Zoster Vaccines Completed 01/10/2021, 07/03, 02/03/2013 Alpha-1 Antitrypsin Completed 10/20/2021 Lung Cancer Screening Completed 01/31/2023 , 04/20/2022, 01/08/2022 HPV (Gardasil) Vaccine Aged Out No lo nger eligible based on patient's age to complete this topic Hepatitis B Vaccine Aged Out No longe r eligible based on patient's age to complete this topic MENINGOCOCCAL (MENACTRA/MENVEO) Aged Out No longer eligible based on patient's age to complete this topic documented as of this encounter Medical Devices Not on filedocumented as of this encounter Care Teams Export Sales Assistant Relationship Specialty Start Date End Date Nick Stearns DO [address] [place] [address] PCP - General Internal Medicine 04/16/24 documented as of this encounter
--- OUTSIDE RECORDS SUMMARY | 2024-06-22 22:02 | External Medical Summary | Summary of Care ---
Author Name Unknown Organization [facility] Address [address] [place] [address] Phone [phone] Care Team Providers Care Quality Assurance Supervisor Name Role Phone Nick Stearns DO Primary Care Provider [phone] Reason for Visit * Reason Onset Date Comments Lung Cancer Screening Outreach 05/08/2024 Encounter Details Date Type Department Care Team (Late st Contact Info) Description 05/08/2024 Telephone Thoracic Surg [facility] [address] [place] [address] Candace Ng, RN Lung Cancer Screening Outreach Allergies Active Allergy Reactions Criticality Noted Date Comments Lorazepam 05/02/2020 Pulled out NG tube---behavioral issues Triptans 01/03/2009 Pregabalin 01/03/2009 Methylprednisolone 01/03/2009 documented as of this encounter (statuses as of 05/08/2024) Medications Medication Sig Dispensed Refills Start Date [...] the morning. 90 Capsule 1 4 Active Vungvwzice-SKBQ-Nmpoamic 50-300-40 MG Oral Capsule (Fioricet)Indications:Jose davis variant Take 1 Capsule by mouth every 6 hours as needed for Headache. 60 Capsule 4 Active documented as of this encounter (statuses as of 05/08/2024) Active Problems Problem Noted Date Diagnosed Date [...] as of this encounter (statuses as of 05/08/2024) Resolved Problems Problem Noted Date Diagnosed Date [...] Overview: Per Lipid Taxonomy. Mixed dyslipidemia 02/22/2009 9 Overview: Per Lipid Taxonomy. Other osteoporosis without c urrent pathological fracture 10/20/2021 Overview: ICD-10 update of inactive term Migraine 10/11/2017 Osteoarthrosis, unspecified whether generalized or localized, other specified sites 10/11/2017 documented as of this encounter (statuses as of 05/08/2024) Immunizations Name Administration Dates Next Due COVID-19 mRNA, LNP-s, No Pre serve, 2-Dose Series (Moderna) 12/23/2020,11/18/2020 COVID-19, MRNA-LNP, 23-24, P F, 30 MCG/0.3 mL, 12 YRS AND ABOVE, IM (Immunetics-Comirnat) 08/02/2023 COVID-19, mRNA, LNP-s, PF, B ooster, [...] on file documented as of this encounter Miscellaneous Notes * Telephone Encounter - Candace Ng RN - 05/08/2024 10:04 AM EDT Lung Cancer Screening Program ([facility]) High Risk Outreach Call Summary 05/08/2024 Through advanced analysis/trending of this patient's history, they have been identified to have a positive Lung flag and are at a higher risk for lung cancer. This advanced analysis estimates the patient's risk for lung cancer. It only indicates that the patient's chances to have this condition are higher compared to most people. It does not indicate that the patient has this condition, but it is highly recommended the patient have a low dose CT screening for further evaluation. Patient previously declined or noncompliant Candace Ng RN documented in this encounter Plan of Treatment Upcoming Encounters Date Type Department Care Team (Late st Contact Info) Description 08/21/2024 3:40 PM EST Office Visit Family Practice [address], [place] [address] [place] [address] Nick Stearns, [address] [place] [address] Health Maintenance Due Date Last Done Comments [...] D LEVEL ONCE IN A LIFETIME-USE SMARTSET# [id number] Completed 04/18/2018, 10/11/2017, 02/15/2010 Zoster Vaccines Completed [...] filedocumented as of this encounter Care Teams Quality Assurance Supervisor Relationship Specialty Start Date End Date Nick Stearns DO [address] [place] [address] PCP - General Internal Medicine 04/16/24 documented as of this encounter
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
--- OUTSIDE RECORDS SUMMARY | 2024-06-22 22:03 | External Medical Summary | Summary of Care ---
Author Name Unknown Organization [facility] Address [address] [place] [address] Phone [phone] Care Team Providers Care Basketball Referee Name Role Phone Samara Stearns DO Primary Care Provider [phone] Reason for Visit * Reason Onset Date Comments Medication Refill 03/30/2024 Encounter Details Date Type Department Care Team (Late st Contact Info) Description 03/30/2024 Refill Family Practice [address] [place] [address] [place] [phone] Samara Stearns DO [address] [place] [address] Gastroesophageal reflux disease without esophagitis Allergies Active Allergy Reactions Criticality Noted Date Comments Lorazepam 05/02/2020 Pulled out NG tube---behavioral issues Triptans 01/03/2009 Pregabalin 01/03/2009 Methylprednisolone 01/03/2009 documented as of this encounter (statuses as of 03/31/2024) Medications Medication Sig Dispensed Refills Start Date [...] the morning. 90 Capsule 3 4 Active Oaizsmelok-YTTB-Gwfthivm 50-300-40 MG Oral Capsule (Fioricet)Indications:Mi graine variant Take 1 Capsule by mouth every 6 hours as needed for Headache. 60 Capsule 4 Active Mirtazapine 45 MG Oral Tablet (Remeron)Indications:Cur rent moderate episode of major depressive disorder without prior episode (HCC) Take 1 Tablet by mouth at bedtime. 90 Tablet 3 4 Active Omeprazole 20 MG Oral Capsule Delayed Release (PriLOSEC)Indications:Ga stroesophageal reflux disease without esophagitis Take 1 Capsule by mouth in the morning. 90 Capsule 1 4 Active Omeprazole 20 MG Oral Capsule Delayed Release (PriLOSEC)Indications:Ga stroesophageal reflux disease without esophagitis Take 1 Capsule by mouth in the morning. 90 Capsule 1 4 024 Discontin ued(Refil l) documented as of this encounter (statuses as of 03/31/2024) Active Problems Problem Noted Date Diagnosed Date [...] as of this encounter (statuses as of 03/31/2024) Resolved Problems Problem Noted Date Diagnosed Date Resolved Date Prediabetes 02/12/2022 08/15/2023 Overview: Per Prediabetes protocol Rheumatoid arthritis with po sitive rheumatoid factor 10/11/2017 02/12/2019 Primary biliary cirrhosis 03/28/2017 GERD (gastroesophageal reflux disease) 12/13/2016 04/12/2020 Primary biliary cholangitis 08/11/2015 03/28/2017 Overview: ICD-10 Update of inactive term COPD, moderate 09/24/2012 07/13/2021 Overview: Per COPD GOLD Classification Bacterial pneumonia 05/10/2010 03/28/20 Dyslipidemia, goal to be determined 08/09/2009 05/02/2020 Overview: Per Lipid Taxonomy. Mixed dyslipidemia 02/22/2009 Overview: Per Lipid Taxonomy. Other osteoporosis without c urrent pathological fracture 10/20/2021 Overview: ICD-10 update of inactive term Migraine 10/11/2017 Osteoarthrosis, unspecified whether generalized or localized, other specified sites 10/11/2017 documented as of this encounter (statuses as of 03/31/2024) Immunizations Name Administration Dates Next Due COVID-19 [...] encounter Miscellaneous Notes * Telephone Encounter - Warren Cottrell, [facility] - 03/31/2024 9:55 AM EDTSigned Prescriptions: Disp Refills Omeprazole 20 MG Oral Capsule Delayed Rele*90 Cap*1 Sig: Take 1Capsule by mouth in the morning.Authorizing Provider: SAMARA STEARNS User: WARREN COTTRELL * Telephone Encounter - Mattie Hidalgo, sugar cane farm manager - 03/30/2024 11:11 AM EDT Did you pend patient's preferred pharmacy and medication before forwarding?yes [facility], [address] [place] Pending Prescriptions: Disp Refills Omeprazole 20 MG Oral Capsule Delayed Rel*90 Cap*1 Sig: Take 1 Capsule by mouth in the morning. Last Visit: 12/13/2023 (in office), Visit date not found (telemedicine) Next Visit: 04/17/2024 If no future appointments scheduled, and last appointment is greater than a year ago, please schedule patient for a follow-up appointment Last date the medication was ordered: 10-01-23 Is this request for a controlled substance?No Urine Drug Screen:No results found for this or any previous visit. Patient Phone Numbers Labs: Lab Results Component Value Date/Time CREAT 0.7 12/13/2023 03:45 PM CREAT 0.66 01/08/2022 12:00 AM CREAT 0.8 07/18/2020 01:02 PM POTASSIUM 3.4 (L) 12/13/2023 03:45 PM POTASSIUM 2.9 (A) 01/08/2022 12:00 AM POTASSIUM 3.6 05/11/2020 01:18 PM TSH 1.48 11/08/2022 11:57 AM TSH 2.00 04/21/2015 04:03 PM LDLCALC 62 12/13/2023 03:45 PM LDLCALC 75 04/12/2020 04:41 PM LDLDIRECT NOT APPLICABLE 04/12/2020 04:41 PM ALT 15 12/13/2023 03:45 PM ALT 16 04/12/2020 04:41 PM HGBA1C 5.3 12/13/2023 03:45 PM HGBA1C 6.1 (A) 01/08/2022 12:00 AM HGBA1C 5.3 04/15/2015 02:54 PM documented in this encounter Plan of Treatment Upcoming Encounters Date Type Department Care Team (Late st Contact Info) Description 04/17/2024 3:00 PM EDT Office Visit Family Practice [address], [place] [address] [facility] [place] [phone] Samara Stearns, [address] [place] [address] Health Maintenance Due Date Last Done Comments Colonoscopy 1995 Fecal Occult Blood Test 1995 Sigmoidoscopy 1995 *ADVANCE DIRECTIVE NOT ON FILE 01/21/2022 Mammogram 04/11/2023 04/11/2022, 04/02, 04/10/2021, Additional history exists COVID-19 Vaccine ( season) 2023 08/02/2023, 06/15/2022, 03/26/2022, Additional history exists *CXR OR CT FOR COPD EVER 03/15/2024 Influenza Vaccine (FLU shot) (#1) 2024 08/02/2023, 05/24/2022, 05/15/2021, Additional history exists Cologuard 07/04/2024 07/04/2021, 06/03, 06/21/2021 Colorectal Cancer Screening 07/04/2024 Depression Monitoring 08/02/2024 08/02/2023 DISCUSS TOBACCO CESSATION (REFER TO SMARTSET #[id number]) 12/12/2024 12/13/2023 (Discussed) O2 ASSESSMENT COMPLETED IN PAST YEAR FOR COPD 12/12/2024 12/13/2023 DXA Scan 12/24/2024 12/24/2022, 07/03, 05/15/2018, Additional history exists DTaP,Tdap,and Td Vaccines (3 - Td or Tdap) 10/20/2031 10/20/2021, 02/15/2010 Hepatitis C Screening Completed 04/21/2015 Pneumococcal Vaccine: 65+ Years Completed 03/15/2016, 02/04/2015, 01/03/2009 VITAMIN D LEVEL ONCE IN A LIFETIME-USE SMARTSET# [id number] Completed 04/18/2018, 10/11/2017, 02/15/2010 Zoster Vaccines Completed [...] as of this encounter Visit Diagnoses Diagnosis Gastroesophageal reflux disease without esophagitis Esophageal reflux documented in this encounter Care Teams Basketball Referee Relationship Specialty Start Date End Date Samara Stearns DO PCP - General Internal Medicine 05/30/22 documented as of this encounter
--- OUTSIDE RECORDS SUMMARY | 2024-06-22 22:03 | External Medical Summary | Summary of Care ---
Author Name Unknown Organization [facility] Address [address] [place] [address] Phone [phone] Care Team Providers Care Janitor Caretaker Name Role Phone Samara Stearns DO Primary Care Provider [phone] Reason for Visit * Reason Onset Date Comments Medication Refill 03/13/2024 Encounter Details Date Type Department Care Team (Late st Contact Info) Description 03/13/2024 Refill Family Practice [address], [place] [address] [place] [phone] Samara Stearns DO [address] [place] [address] Current moderate episode of major depressive disorder without prior episode ([facility]) Allergies Active Allergy Reactions Criticality Noted Date Comments Lorazepam 05/02/2020 Pulled out NG tube---behavioral issues Triptans 01/03/2009 Pregabalin 01/03/2009 Methylprednisolone 01/03/2009 documented as of this encounter (statuses as of 03/16/2024) Medications Medication Sig Dispensed Refills Start Date [...] the morning. 90 Capsule 1 4 Active Potassium Chloride ER 10 MEQ Oral Capsule Extended ReleaseIndications:Hypok alemia Take 1 Capsule by mouth in the morning. 90 Capsule 3 4 Active Iwavyffkym-EKKP-Fswvandt 50-300-40 MG Oral Capsule (Fioricet)Indications:Mi graine variant Take 1 Capsule by mouth every 6 hours as needed for Headache. 60 Capsule 4 Active Mirtazapine 45 MG Oral Tablet (Remeron)Indications:Cur rent moderate episode of major depressive disorder without prior episode (HCC) Take 1 Tablet by mouth at bedtime. 90 Tablet 3 4 Active Mirtazapine 45 MG Oral Tablet (Remeron)Indications:Cur rent moderate episode of major depressive disorder without prior episode (HCC) Take 1 Tablet by mouth at bedtime. 30 Tablet 3 4 024 Discontin ued(Refil l) documented as of this encounter (statuses as of 03/16/2024) Active Problems Problem Noted Date Diagnosed Date [...] as of this encounter (statuses as of 03/16/2024) Resolved Problems Problem Noted Date Diagnosed Date [...] as of this encounter (statuses as of 03/16/2024) Immunizations Name Administration Dates Next Due COVID-19 [...] encounter Miscellaneous Notes * Telephone Encounter - Crystal Roberson CPhT - 03/16/2024 11:39 AM EDT Pt calling to check on status of refill request Thank you, Crystal Roberson Welder [employer] [facility] ([facility]) (formerly Telepharmacy) 03/16/2024 11:39 AM * Telephone Encounter - Raheem Goodman [facility] - 03/16/2024 10:00 AM EDTSigned Prescriptions: Disp Refills Mirtazapine 45 MG Oral Tablet (Remeron) 90 Tab*3 Sig: Take 1 Tablet by mouth at bedtime. Authorizing Provider: SAMARA STEARNS Ordering User: RAHEEM GOODMAN * Telephone Encounter - Livia Morfin production pattern maker - 03/13/2024 11:43 AM EDT Did you pend patient's preferred pharmacy and medication before forwarding?yes Pharmacy: [facility], [address] [place] Pending Prescriptions: Disp Refills Mirtazapine 45 MG Oral Tablet (Remeron) 30 Tab*3 Sig: Take 1 Tablet by mouth at bedtime. Last Visit: 12/13/2023 (in office), Visit date not found (telemedicine) Next Visit: 04/17/2024 If no future appointments scheduled, and last appointment is greater than a year ago, please schedule patient for a follow-up appointment Last date the medication was ordered: 11/11/2023 Is this request for a controlled substance?No [...] EDT Office Visit Family Practice [address], [place] [address] [place] [address] Samara Stearns, [address] [place] [address] Health Maintenance Due Date Last Done Comments [...] 08/02/2023 DISCUSS TOBACCO CESSATION (REFER TO SMARTSET #8621) 12/12/2024 12/13/2023 (Discussed) O2 ASSESSMENT COMPLETED IN PAST YEAR FOR COPD 12/12/2024 12/13/2023 DXA Scan 12/24/2024 12/24/2022, 07/03, 05/15/2018, Additional history exists DTaP,Tdap,and Td Vaccines (3 - Td or Tdap) 10/20/2031 10/20/2021, 02/15/2010 Pneumococcal Vaccine: 65+ Years Completed 03/15/2016, 02/04/2015, 01/03/2009 VITAMIN D LEVEL ONCE IN A LIFETIME-USE SMARTSET# [id number] Completed 04/18/2018, 10/11/2017, 02/15/2010 Zoster Vaccines Completed [...] as of this encounter Visit Diagnoses Diagnosis Current moderate episode of major depressive disorder without prior episode (HCC) documented in this encounter Care Teams Janitor Caretaker Relationship Specialty Start Date End Date Samara Stearns DO PCP - General Internal Medicine 05/30/22 documented as of this encounter
--- OUTSIDE RECORDS SUMMARY | 2024-06-22 22:03 | External Medical Summary | Summary of Care ---
Author Name Unknown Organization [facility] Address [address] [place] [address] Phone [phone] Care Team Providers Care Kennel Keeper Name Role Phone Samara Stearns DO Primary Care Provider Reason for Visit * Reason Onset Date Comments Medication Refill 03/13/2024 Encounter Details Date Type Department Care Team (Late st Contact Info) Description 03/13/2024 Refill Family Practice [address], [place] [address] [place] [phone] Samara Stearns DO [address] [place] [address] Current moderate episode of major depressive disorder without prior episode ([facility]) Allergies Active Allergy Reactions Criticality Noted Date [...] the morning. 90 Capsule 3 4 Active Mzdalcfxny-BZMO-Icltwvyk 50-300-40 MG Oral Capsule (Fioricet)Indications:Mi graine variant [...] encounter Miscellaneous Notes * Telephone Encounter - Raheem Goodman, [facility] - 03/16/2024 10:00 AM EDTSigned Prescriptions: Disp Refills Mirtazapine 45 MG Oral Tablet (Remeron) 90 Tab*3 Sig: Take 1 Tablet by mouth at bedtime. Authorizing Provider: SAMARA STEARNS Ordering User: RAHEEM GOODMAN * Telephone Encounter - Livia Morfin, watch guard gate - 03/13/2024 11:43 AM EDT Did you pend patient's preferred pharmacy and medication before forwarding?yes [facility], [address] [place] Pending Prescriptions: Disp Refills [...] EDT Office Visit Family Practice [address], [place] [address] [place] [address] Samara Stearns, [address] [place] [address] Health Maintenance Due Date Last Done Comments [...] D LEVEL ONCE IN A LIFETIME-USE SMARTSET# [id number] Completed 04/18/2018, 10/11/2017, 02/15/2010 Zoster Vaccines Completed [...] (HCC) documented in this encounter Care Teams Kennel Keeper Relationship Specialty Start Date End Date Samara Stearns DO PCP - General Internal Medicine 05/30/22 documented as of this encounter
--- OUTSIDE RECORDS SUMMARY | 2024-06-22 22:03 | External Medical Summary | Summary of Care ---
Author Name Unknown Organization [facility] Address [address] [place] [address] Phone [phone] Care Team Providers Care Turfgrass Management Professor Name Role Phone Nick Stearns DO Primary Care Provider [phone] Reason for Visit * Reason Comments Follow Up Encounter Details Date Type Department Care Team (Latest Contact Info) Description 04/17/2024 3:00 PM EDT Office Visit Family Practice [address], [place] [address] [place] [address] Nick Stearns DO [address] [place] [address] COPD, group C, by GOLD 2017 classification [...] as of this encounter (statuses as of 04/17/2024) Medications Medication Sig Dispensed Refills Start Date [...] the morning. 90 Capsule 1 4 Active Nedeftplvd-XHQE-Zbeuasnl 50-300-40 MG Oral Capsule (Fioricet)Indications:Mi graine variant Take 1 Capsule by mouth every 6 hours as needed for Headache. 60 Capsule 4 Active Oeehebishp-SNIV-Loemiejl 50-300-40 MG Oral Capsule (Fioricet)Indications:Mi graine variant Take 1 Capsule by mouth every 6 hours as needed for Headache. 60 Capsule 4 024 Discontin ued(Refil l) documented as of this encounter (statuses as of 04/17/2024) Active Problems Problem Noted Date Diagnosed Date [...] as of this encounter (statuses as of 04/17/2024) Resolved Problems Problem Noted Date Diagnosed Date [...] as of this encounter (statuses as of 04/17/2024) Immunizations Name Administration Dates Next Due COVID-19 [...] by mouth in the morning. 90Capsule 1 Ooymotokkg-AXTP-Kklopibj 50-300-40 MG Oral Capsule (Fioricet) Take 1 [...] additional imaging Polyarticular osteoarthritis Migraine variant - Qynzomiprf-YMIO-Kcmsowni 50-300-40 MG Oral Capsule (Fioricet); Take 1 [...] Description 04/30/2024 2:30 PM EDT Imaging Radiology [address] [place] [address] 08/21/2024 3:40 PM EST Office Visit Family Practice [address], [place] [address] [place] [phone] Nick Stearns, [address] [place] [address] Scheduled Orders Name Type Priority Associated Diagnoses [...] Additional history exists COVID-19 Vaccine ( season) 2024 08/02/2023, 06/15/2022, 03/26/2022, Additional history exists Postponed from 12/02/2023 (Patient Declined After Education) Influenza Vaccine (FLU shot) (#1) 2024 08/02/2023, 05/24/2022, 05/15/2021, Additional history exists Cologuard 07/04/2024 07/04/2021, 06/03, 06/21/2021 Colorectal Cancer Screening 07/04/2024 Depression Monitoring 08/02/2024 08/02/2023 DISCUSS TOBACCO CESSATION (REFER TO SMARTSET #6331) 12/12/2024 12/13/2023 (Discussed) DXA Scan 12/24/2024 12/24/2022, 07/03, 05/15/2018, Additional history exists O2 ASSESSMENT COMPLETED IN PAST YEAR FOR COPD 04/17/2025 04/17/2024 DTaP,Tdap,and Td Vaccines (3 - Td or Tdap) 10/20/2031 10/20/2021, 02/15/2010 Pneumococcal Vaccine: 65+ Years Completed 03/15/2016, 02/04/2015, 01/03/2009 VITAMIN D LEVEL ONCE IN A LIFETIME-USE SMARTSET# [id number] Completed 04/18/2018, 10/11/2017, 02/15/2010 Zoster Vaccines Completed [...] mammogram documented in this encounter Care Teams Turfgrass Management Professor Relationship Specialty Start Date End Date Nick Stearns DO [address] [place] [address] PCP - General Internal Medicine 04/16/24 documented as of this encounter
--- OUTSIDE RECORDS SUMMARY | 2024-06-22 22:03 | External Medical Summary | Summary of Care ---
Author Name Unknown Organization [facility] Address [address] [place] [address] Phone [phone] Care Team Providers Care Table Games Dealer Name Role Phone Nick Stearns DO Primary Care Provider [phone] Reason for Visit * Reason Comments eRx-Medication Refill Encounter Details Date Type Department Care Team (Late st Contact Info) Description 02/13/2024 Refill Family Practice [address], [place] [address] [place] [address] Nick Stearns DO [address] [place] [address] Potassium deficiency Allergies Active Allergy Reactions Criticality Noted Date Comments Lorazepam 05/02/2020 Pulled out NG tube---behavioral issues Triptans 01/03/2009 Pregabalin 01/03/2009 Methylprednisolone 01/03/2009 documented as of this encounter (statuses as of 02/14/2024) Medications Medication Sig Dispensed Refills Start Date [...] the morning. 90 Capsule 1 4 Active Mirtazapine 45 MG Oral Tablet (Remeron)Indications:Curr ent moderate episode of major depressive disorder without prior episode (HCC) Take 1 Tablet by mouth at bedtime. 30 Tablet 3 4 Active Zgeubrnnut-ZJAA-Oiffkwcu 50-300-40 MG Oral Capsule (Fioricet)Indications:Jose susan variant Take 1 Capsule by mouth every 6 hours as needed for Headache. 60 Capsule 4 Active Potassium Chloride ER 10 MEQ Oral Capsule Extended ReleaseIndications:Hypoka lemia Take 1 Capsule by mouth in the morning. 90 Capsule 3 4 Active documented as of this encounter (statuses as of 02/14/2024) Active Problems Problem Noted Date Diagnosed Date [...] as of this encounter (statuses as of 02/14/2024) Resolved Problems Problem Noted Date Diagnosed Date [...] as of this encounter (statuses as of 02/14/2024) Immunizations Name Administration Dates Next Due COVID-19 [...] encounter Miscellaneous Notes * Telephone Encounter - Yasemin Garcia RPh - 02/14/2024 9:27 AM EDTRefused Prescriptions: Disp Refills Potassium Chloride Orin ER 20 MEQ Oral Tab*30 Tab*5 Sig: TAKE ONE TABLET BY MOUTH IN THE MORNINGRefused By: YASEMIN GARCIA for Refusal: Refill Not Appropri ate documented in this encounter Plan of Treatment Upcoming Encounters Date Type Department Care Team (Late st Contact Info) Description 04/17/2024 3:00 PM EDT Office Visit Family Practice [address], [place] [address] [place] [phone] Nick Stearns, [address] [place] [address] Health Maintenance Due Date Last Done Comments Colonoscopy 1995 Fecal Occult Blood Test 1995 Sigmoidoscopy 1995 *ADVANCE DIRECTIVE NOT ON FILE 01/21/2022 Mammogram 04/11/2023 04/11/2022, 04/02, 04/10/2021, Additional history exists COVID-19 Vaccine ( season) 2023 08/02/2023, 06/15/2022, 03/26/2022, Additional history exists Cologuard 07/04/2024 07/04/2021, 06/03, [...] D LEVEL ONCE IN A LIFETIME-USE SMARTSET# [id number] Completed 04/18/2018, 10/11/2017, 02/15/2010 Zoster Vaccines Completed 01/10/2021, 07/03, 02/03/2013 Alpha-1 Antitrypsin Completed 10/20/2021 Lung Cancer Screening Completed 01/31/2023 , 04/20/2022, 01/08/2022 Influenza Vaccine (FLU shot) Completed 09/2022, 05/24/2022, 05/15/2021, Additional history exists GARDASIL-HPV IMMUNIZATION SERIES Aged Out No longer eligible based on patient's age to complete this topic Hepatitis B Aged Out No longer eligi ble based on patient's age to complete this topic MENINGOCOCCAL (MENACTRA/MENVEO) Aged Out No longer eligible based on patient's age to complete this topic documented as of this encounter Medical Devices Not on filedocumented as of this encounter Visit Diagnoses Diagnosis Potassium deficiency Hypopotassemia documented in this encounter Care Teams Table Games Dealer Relationship Specialty Start Date End Date Nick Stearns DO PCP - General Internal Medicine 05/30/22 documented as of this encounter
--- OUTSIDE RECORDS SUMMARY | 2024-06-22 22:03 | External Medical Summary | Summary of Care ---
Author Name Unknown Organization [facility] Address [address] [place] [address] Phone [phone] Care Team Providers Care Metal Control Coordinator Name Role Phone Samara Stearns DO Primary Care Provider [phone] Reason for Visit * Reason Onset Date Comments Medication Refill 02/21/2024 Encounter Details Date Type Department Care Team (Late st Contact Info) Description 02/21/2024 Refill Family Practice [address], [place] [address] [place] [phone] Samara Stearns DO [address] [place] [address] Migraine variant Allergies Active Allergy Reactions Criticality Noted Date Comments Lorazepam 05/02/2020 Pulled out NG tube---behavioral issues Triptans 01/03/2009 Pregabalin 01/03/2009 Methylprednisolone 01/03/2009 documented as of this encounter (statuses as of 02/21/2024) Medications Medication Sig Dispensed Refills Start Date [...] at bedtime. 30 Tablet 3 4 Active Potassium Chloride ER 10 MEQ Oral Capsule Extended ReleaseIndications:Hypok alemia Take 1 Capsule by mouth in the morning. 90 Capsule 3 4 Active Uonspennei-BKMY-Poxogotq 50-300-40 MG Oral Capsule (Fioricet)Indications:Mi graine variant Take 1 Capsule by mouth every 6 hours as needed for Headache. 60 Capsule 4 Active Zmfnokeyud-CSTD-Khupuzdp 50-300-40 MG Oral Capsule (Fioricet)Indications:Mi graine variant Take 1 Capsule by mouth every 6 hours as needed for Headache. 60 Capsule 4 024 Discontin ued(Refil l) documented as of this encounter (statuses as of 02/21/2024) Active Problems Problem Noted Date Diagnosed Date [...] as of this encounter (statuses as of 02/21/2024) Resolved Problems Problem Noted Date Diagnosed Date [...] as of this encounter (statuses as of 02/21/2024) Immunizations Name Administration Dates Next Due COVID-19 [...] encounter Miscellaneous Notes * Telephone Encounter - Samara Stearns DO - 02/21/2024 12:18 PM EDTSigned Prescriptions: Disp Refills Pipwyoxtgo-BSRV-Rjxuawnf 50-300-40 MG Oral*60 Cap*0 Sig: Take 1 Capsule by mouth every 6 hours as needed for Headache.Authorizing Provider: SAMARA STEARNS * Telephone Encounter - Celia Bowens [facility] - 02/21/2024 12:12 PM EDT Pending Prescriptions: Disp Refills Uwacjarvik-LSCP-Yfpomrub 50-300-40 MG Oral*60 Cap*0 Sig: Take 1 Capsule by mouth every 6 hours as needed for Headache. * Telephone Encounter - Celia Bowens [facility] - 02/21/2024 12:12 PM EDT I have reviewed the patients controlled substance dispensing history in the Prescription Drug Monitoring Program in compliance with the [facility] regulations before prescribing a controlled substance. PDMP checked on 02/21/2024. Pending Prescriptions: Disp Refills Reaipsdbnb-WSYN-Nqopktzv 50-300-40 MG Ora*60 Cap*0 Sig: Take 1 Capsule by mouth every 6 hours as needed for Headache. Last Visit: 12/13/2023 (in office), Visit date not found (telemedicine) Next Visit: 04/17/2024 Date medication was last filled: 12/13 Date medication is due for refill: 12/28 Pharmacy: [facility], [address] [place] Is this request for a controlled substance? Yes and Urine Drug Screen Not completed Toxicology results: No results found for this or any previous visit. Please approve if appropriate. Thank you, Celia Bowens, PharmD. Clinical Pharmacist [facility] ([facility]) 02/21/2024, 12:12 PM * Telephone Encounter - Mattie Hidalgo PHARM Tech - 02/21/2024 11:34 AM EDT Pt called asking if it can be a high priority, please advise Did you pend patient's preferred pharmacy and medication before forwarding?yes Pharmacy: [facility], [facility] [place] Pending Prescriptions: Disp Refills Lzstnesqrp-VHLL-Wacamfja 50-300-40 MG Ora*60 Cap*0 Sig: Take 1 Capsule by mouth every 6 hours as needed for Headache. Last Visit: 12/13/2023 (in office), Visit date not found (telemedicine) Next Visit: 04/17/2024 If no future appointments scheduled, and last appointment is greater than a year ago, please schedule patient for a follow-up appointment Last date the medication was ordered: 12-13-23 Is this request for a controlled substance?Yes, What was the last refill date 12-13-23 w/ quantity 60 and dosage 50-300-40 and Urine Drug Screen Not completed Urine Drug Screen:No results found for this [...] EDT Office Visit Family Practice [address], [place] [address] [place] [phone] Samara Stearns, [address] [facility] [place] [address] Health Maintenance Due Date Last Done Comments [...] D LEVEL ONCE IN A LIFETIME-USE SMARTSET# [id number] Completed 04/18/2018, 10/11/2017, 02/15/2010 Zoster Vaccines Completed [...] as of this encounter Visit Diagnoses Diagnosis Migraine variant Variants of migraine, not elsewhere classified, without mention of intractable migraine without mention of status migrainosus documented in this encounter Care Teams Metal Control Coordinator Relationship Specialty Start Date End Date Samara Stearns DO PCP - General Internal Medicine 05/30/22 documented as of this encounter
[2024-06-23] MEDS: PIPERACILLIN/TAZOBACTAM 4.5 GM/100 ML BAG IV SCH (00:22)
[2024-06-23 07:55] LABS: Calcium 9.1 mg/dl (8.6-10.3); Magnesium 2.1 mg/dl (1.7-2.4); Potassium 3.2 mmol/L (3.5-5.1)
[2024-06-23 07:57] LABS: Hematocrit (blood only) 33.9 % (37.0-47.0); Hemoglobin 11.1 g/dl (12.0-16.0); Mean Corpuscular Hemoglobin 30.8 pg (25.0-34.0); Mean Corpuscular Hgb Conc 32.7 g/dL (32.0-36.0); Mean Corpuscular Volume 94.2 fL (80.0-100.0); Mean Platelet Volume 10.5 fL (9.4-12.4); Platelet Count 372 K/uL (130-400); RDW Coefficient of Variation 12.6 % (11.5-14.5); RDW Standard Deviation 43.4 fL (36.4-46.3); White Blood Count 11.67 K/ul (4.8-10.8)
[2024-06-23 08:01] LABS: BUN Creatinine Ratio 19.3 (10-20); Creatinine Clr Calc Pharmacy 53.4 ml/min; Phosphorus 3.8 mg/dl (2.5-4.9)
[2024-06-23] MEDS: ADVANCED PROBIOTIC 625 MG CAPSULE PO SCH (08:11)
[2024-06-23] MEDS: predniSONE 20 MG TAB PO SCH (08:11)
[2024-06-23] MEDS: POTASSIUM CHLORIDE CRTAB 20 MEQ TABCR PO STA (09:19)
--- NOTE | 2024-06-23 11:21 | Hospitalist Progress Note ---
Date of Service June 23, 2024 Assessment & Plan (1) Pneumonia: Plan Sepsis Multifocal pneumonia Enterovirus/Rhinovirus Infection Mild COPD exacerbation Pt with leukocytosis, tachypnea, tachycardia on arrival, likely pulmonary infectious source Chest XR and chest CTA with suggestion of pneumonia. A follow-up chest CT in 2 months to ensure resolution is recommended. Biofire noting enterovirus/rhinovirus infection VBG pH of 7.45, pCO2 54 Procalcitonin pending Follow sputum culture Follow Blood cultures UA ordered and pending in the setting of sepsis as well IV Zosyn for possible bacterial component Steroids Continue DuoNebs and Mucomyst Oxygen supplementation as needed Consider pulmonology consult Improving currently Hypokalemia replete as needed Failure to thrive Malnutrition Dietary consult, appreciate recs Other chronic medical conditions: CAD, COPD, osteoporosis, GERD---- continue with/resume home meds as when able. Diet: HH DVT prophylaxis: Heparin subcu Dispo: PT/OT for further recs Admission and Anticipated Discharge Date Admission Date: June 22, 2024 Subjective Patient was seen sitting in bed, resting comfortably Nasal cannula in nares denies shortness of breath or chest tightness at the time States that her cough had improved Review of Systems Review of Systems: All systems reviewed & are unremarkable except as noted in Subjective Physical Exam Physical Exam: General: Alert, oriented. Thin, cachectic Psych: Appropriate mood and affect HEENT: NC/AT CV: RRR Resp: Breath sounds with good air movement bilaterally, no increased effort of breathing. Abdomen: Soft, nontender Extremities: No edema in lower extremities bilaterally. Results & Data Results & Data Vital Signs (Past 12 Hours) Vital Signs Temp Pulse Pulse Pulse Resp BP Pulse Ox 06/23/24 08:25 73 06/23/24 08:00 06/23/24 07:46 81 18 91 06/23/24 07:23 36.6 C 78 20 107/64 95 06/23/24 03:07 36.5 C 79 18 120/66 96 06/23/24 00:25 90 18 94 O2 Del Method O2 Flow Rate 06/23/24 08:25 06/23/24 08:00 Nasal Cannula 3 06/23/24 07:46 Nasal Cannula 3 06/23/24 07:23 Nasal Cannula 3 06/23/24 03:07 Nasal Cannula 3 06/23/24 00:25 Nasal Cannula 3 Diagnostic Findings Chest X-Ray 06/22/24 14:24 XR chest 1V portable HISTORY: 74 years-old Female Chest pain, nonspecific COMPARISON: 06/01/2022 TECHNIQUE: AP view of the chest FINDINGS: Cardiac silhouette is unchanged. Severe pulmonary emphysema with chronic interstitial coarsening/fibrosis. Chronic rib fractures. No pneumothorax or large pleural effusion. Degenerative changes of the shoulders and spine. Mild patchy bibasilar opacities are new from prior. IMPRESSION: 1. Mild patchy bibasilar opacities may represent atelectasis versus pneumonitis. 2. Severe emphysema redemonstrated. ACT 112: Negative or not required by law. The above report was generated using voice recognition software. It may contain grammatical, syntax or spelling errors. Electronically signed by: Fran Frausto M.D. 06/22/2024 3:06 PM Chest CTA 06/22/24 16:23 CT ANGIOGRAPHY OF THE CHEST, PULMONARY EMBOLUS PROTOCOL CLINICAL HISTORY: Cough. Evaluate for pulmonary embolus. COMPARISON STUDY: Chest CT June 01, 2022. Chest radiograph performed earlier today. TECHNIQUE: Following IV administration of 117 mL of Optiray, helical axial images of the chest were obtained utilizing the pulmonary embolus protocol. Maximal intensity projections and sagittal and coronal reformats were viewed on an independent 3D workstation. IV contrast was administered without complication. Automated exposure control was utilized for the study. A dose lowering technique was utilized adhering to the principles of ALARA. CT DOSE: 319.91 mGy.cm FINDINGS: No pulmonary emboli are identified. There is no thoracic aortic dissection. Size of the heart is at the upper limits of normal. There is no pericardial effusion. An enlarged subcarinal lymph node measures approximately 3.2 x 1.6 cm. Severe emphysema with lung hyperexpansion is again noted. Moderate multifocal bilateral lower lobe and right middle lobe opacities are present. Multifocal mucus plugging is present. There is no pneumothorax or pleural effusion. No acute fractures within the bony thorax are noted. Subpleural biapical opacities are unchanged and CT of June 01, 2022 and represent scarring. IMPRESSION: 1. No pulmonary emboli identified. 2. Multifocal right middle lobe and bilateral lobe airspace opacities suggestive of pneumonia. Associated mucous plugging. A follow-up chest CT in 2 months to ensure resolution is recommended. 3. Mildly enlarged subcarinal lymph node. This is likely reactive but should be assessed on follow-up CT to ensure resolution. 4. Severe emphysema. ACT 112: Negative or not required by law. Electronically signed by: Rajesh Howe M.D. 06/22/2024 5:06 PM (1) Pneumonia Laterality: unspecified laterality Lung location: unspecified part of lung Pneumonia type: due to unspecified organism Qualified Code(s): J18.9 - Pneumo ras, unspecified organism
[2024-06-23] MEDS: ACETAMINOPHEN 325 MG TAB PO PRN (16:36)
[2024-06-23] MEDS: INFLUENZA VACC TS2024-25(65y+)/PF (IIV3) 0.5mL Syr IM ONE (20:10)
[2024-06-23] MEDS: DICLOFENAC SOD 1% GEL 100 GM TUBE EXT SCH (22:57)
[2024-06-23] MEDS: MIRTAZAPINE SOLTAB 15 MG PO SCH (22:58)
[2024-06-23] MEDS: ZOLPIDEM TARTRATE 5 MG TAB PO PRN (22:58)
[2024-06-23] MEDS: CARISOPRODOL 350 MG TABLET PO PRN (23:01)
[2024-06-24 06:17] LABS: Basophils # (auto) 0.02 K/uL (0.00-0.20); Basophils % (auto) 0.1 %; Eosinophils # (auto) 0.03 K/uL (0.00-0.50); Eosinophils % (auto) 0.2 %; Hematocrit (blood only) 32.2 % (37.0-47.0); Hemoglobin 10.8 g/dl (12.0-16.0); Immature Granulocytes # (auto) 0.09 K/uL (0.01-0.20); Immature Granulocytes % (auto) 0.6 %; Lymphocytes # (auto) 1.47 K/uL (1.20-3.40); Lymphocytes % (auto) 10.6 %; Mean Corpuscular Hemoglobin 31.3 pg (25.0-34.0); Mean Corpuscular Hgb Conc 33.5 g/dL (32.0-36.0); Mean Corpuscular Volume 93.3 fL (80.0-100.0); Mean Platelet Volume 9.6 fL (9.4-12.4); Monocytes # (auto) 1.14 K/uL (0.11-0.59); Monocytes % (auto) 8.2 %; Neutrophils # (auto) 11.18 K/uL (1.40-6.50); Neutrophils % (auto) 80.3 %; Platelet Count 471 K/uL (130-400); RDW Coefficient of Variation 12.2 % (11.5-14.5); RDW Standard Deviation 41.8 fL (36.4-46.3); Red Blood Count 3.45 M/uL (4.20-5.40); White Blood Count 13.93 K/ul (4.8-10.8)
[2024-06-24 06:42] LABS: Albumin Globulin Ratio 1.1 (0.9-2); Bilirubin,Total 0.3 mg/dl (0.2-1.0); Calcium 9.1 mg/dl (8.6-10.3); Creatinine Clr Calc Pharmacy 49.9 ml/min; Globulin 2.8 gm/dl (2.5-4.0); Magnesium 1.9 mg/dl (1.7-2.4); Phosphorus 2.2 mg/dl (2.5-4.9); Potassium 3.4 mmol/L (3.5-5.1); Total Protein 5.8 gm/dl (6.0-8.3)
[2024-06-24] MEDS: PANTOprazole 40 MG TAB PO SCH (07:49)
[2024-06-24] MEDS: CEROVITE ADV FORMULA TAB PO SCH (07:49)
[2024-06-24] MEDS: ATORVASTATIN 20 MG TAB PO SCH (07:49)
[2024-06-24] MEDS: ASPIRIN 81 MG ECTAB PO SCH (07:49)
[2024-06-24] MEDS: UMECLIDINIUM BROMIDE 62.5MCG/BLISTER 7 PUFFS/INHALER INH SCH (07:50)
[2024-06-24] MEDS: FLUTICASONE/VILANTEROL 100/25MCG 14 PUFFS/INHALER INH SCH (07:50)
[2024-06-24] MEDS ORDERED: POTASSIUM PHOS 3 MMOL/1 ML INFUSION IV STA (08:02)
[2024-06-24 08:17] LABS: Appearance Urine Clear (Clear); Bacteria Urine Automated None Seen (None Seen); Bilirubin Urine Negative (Negative); Blood Urine Negative (Negative); Cast Urine Automated 0-2 /lpf (0-2); Color Urine Yellow; Epithelial Cell Urine Auto 0-2 /hpf (0-2); Glucose Urine UA Negative (Negative); Ketones Urine Negative (Negative); Leukocyte Esterase Urine 1+ (Negative); Nitrite Urine Negative (Negative); Protein Urine Negative (Negative); RBC Urine Automated 0-2 /hpf (0-2); Specific Gravity Urine 1.017 (1.000-1.030); Urobilinogen Urine Negative (Negative)
--- NOTE | 2024-06-24 10:04 | Hospitalist Progress Note ---
Date of Service June 24, 2024 Assessment & Plan (1) Pneumonia: Plan Sepsis Multifocal pneumonia Enterovirus/Rhinovirus Infection COPD exacerbation Pt with leukocytosis, tachypnea, tachycardia on arrival Chest XR and chest CTA with suggestion of pneumonia. Biofire noting enterovirus/rhinovirus infection VBG pH of 7.45, pCO2 54 Procalcitonin 0.17 Sputum culture - strep pneumo Blood cultures negative so far Was started on IV zosyn on admission Changed to IV ceftriaxone and azithromycin today Considering COPD, will appreciate Pulm eval. Patient stated she does not follow up with pulm outpatient Wean oxygen to keep pulse ox >88% Continue steroid and nebs Counseled extensively regarding smoking cessation Hypokalemia Hypophosphatemia Replete and monitor Failure to thrive Malnutrition Nutrition recs noted Other chronic medical conditions: CAD, COPD, osteoporosis, GERD---- continue with home meds Diet: HH DVT prophylaxis: Heparin subcu I spent a total of 50 minutes coordinating, documenting and providing care for this patient excluding time spent in performance of separately billed services Admission and Anticipated Discharge Date Admission Date: June 22, 2024 Subjective Patient seen and examined Reports weakness, productive cough and SOB Denied chest pain Denied other complaints on ROS Reports she was not on oxygen at home Smokes atleast 1 ppd Physical Exam Constitutional: + well hydrated and + cachectic; no acut e distress Eyes: PERRL, conjunctivae normal, anicteric sclerae ENMT: external ear and nose normal, oropharynx normal Respiratory: On nasal cannula, diminished breath sounds Cardiovascular: Rate/Rhythm: regular rate and regular rhythm Gastrointestinal (Abdomen): normal bowel sounds, soft, nontender, no hepatosplenomegaly Musculoskeletal: no cyanosis or clubbing, extremities motor strength 5/5 Results & Data Results & Data Vital Signs (Past 12 Hours) Vital Signs Temp Pulse Pulse Resp BP BP Pulse Ox 06/24/24 08:00 06/24/24 07:53 36.7 C 97 H 20 116/57 L 98 06/24/24 07:04 94 H 18 98 06/24/24 07:00 93 H 06/24/24 03:02 36.8 C 93 H 18 97/51 L 97 06/24/24 01:53 100 H 18 85 L 06/24/24 01:03 06/23/24 23:49 98 H 06/23/24 22:27 36.8 C 101 H 17 122/61 95 O2 Del Method O2 Flow Rate 06/24/24 08:00 Nasal Cannula 3 06/24/24 07:53 Nasal Cannula 3 06/24/24 07:04 Nasal Cannula 3 06/24/24 07:00 06/24/24 03:02 Nasal Cannula 3 06/24/24 01:53 Room Air 06/24/24 01:03 Nasal Cannula 3 06/23/24 23:49 06/23/24 22:27 Nasal Cannula 4 Laboratory Results Abnormal lab results 06/24/24 06/24/24 Range/Units 05:41 Unknown WBC 13.93 H (4.8-10.8) K/ul RBC 3.45 L (4.20-5.40) M/uL Hgb 10.8 L (12.0-16.0) g/dl Hct 32.2 L (37.0-47.0) % Plt Count 471 H (130-400) K/uL Neut # (Auto) 11.18 H (1.40-6.50) K/uL Warren # (Auto) 1.14 H (0.11-0.59) K/uL Potassium 3.4 L (3.5-5.1) mmol/L Carbon Dioxide 37 H (21-32) mmol/L BUN/Creatinine Ratio 23.0 H (10-20) Glucose 110 H (70-99(Fasting)) mg/dl Phosphorus 2.2 L D (2.5-4.9) mg/dl AST 104 H (13-39) U/L ALT 75 H (7-52) U/L Total Protein 5.8 L D (6.0-8.3) gm/dl Albumin 3.0 L (3.4-5.0) gm/dl Ur Leukocyte Esterase 1+ H (Negative) Urine WBC (Auto) 6-10 H (0-5) /hpf (1) Pneumonia Laterality: unspecified laterality Lung location: unspecified part of lung Pneumonia type: due to unspecified organism Qualified Code(s): J18.9 - Pneumonia, unspecified organism
[2024-06-24] MEDS: POTASSIUM PHOSPHATE 21 MMOL in SODIUM CHLORIDE 0.9% 500 ML IV ONE (11:17)
[2024-06-24] MEDS: AZITHROMYCIN 250 MG TAB PO SCH (12:42)
--- NOTE | 2024-06-24 16:20 | Pulmonary Consultation ---
Date of Consultation June 24, 2024 Assessment & Plan (1) Acute viral bronchiolitis: Patient tested positive for rhinovirus on respiratory viral panel and sputum cultures revealed Streptococcus pneumonia. Patient likely has superimposed bacterial pneumonia given clinical findings, positive sputum cultures and CT chest imaging. Agree with azithromycin and ceftriaxone. Would recommend a 7- day course of antibiotics and transitioning to oral antibiotics when she is closer to discharge. (2) COPD (chronic obstructive pulmonary disease): Patient is on a suboptimal COPD regimen. She notes she only uses albuterol at home. She continues to smoke cigarettes on a daily basis. She is currently on powdered ICS/LABA/LAMA inhaler as an inpatient. I do not think she has the vital capacity to use powdered inhalers and have transition her to nebulized budesonide and nebulized formoterol which should hopefully help with air trapping and bronchospasm. Continue DuoNebs every 6 hours. I would recommend this regimen as an outpatient as well. Continue prednisone therapy for the time being for a COPD exacerbation. Would recommend a course of 5 to 7 days. COPD type: unspecified COPD Qualified Code(s): J44.9 - Chronic obstructive pulmonary disease, unspecified (3) Abnormal CT scan of lung: She has multifocal nodular opacities and mucous plugging likely secondary to viral pneumonia and Streptococcus pneumonia. Recommend a repeat CT chest in 6 to 8 weeks. (4) Tobacco abuse counseling: We discussed tobacco cessation extensively. Patient notes that she is eager to quit. She has a greater than 90-pbue-ptxe smoking history and very advanced emphysema. Plan Pulmonary service to continue following with you. Thank you for the consult. History of Present Illness Reason for Consultation: "COPD exacerbation, pneumonia" Attending Physician: Rose Ram MD History of Present Illness 74-year-old female with a greater than 64-bxjy-ccgm smoking history presenting to the hospital due to an acute exacerbation of COPD patient notes that since early this week she has been having increased cough with sputum production and shortness of breath. She notes that she was smoking up until the day of her hospitalization. She notes that her last COPD exacerbation was approximately a year ago. She notes that she only uses albuterol for her COPD diagnosis and has no other inhalers even though Anoro Ellipta is listed as her home medication. She notes that she was possibly evaluated by yeast cake cutter in [place] many years ago, but does not recall the details. It appears that she was hospitalized in June 2022 and discharged at that time for severe COPD. Patient notes that she is not on chronic oxygen therapy. Chest CTA 06/22/2024 revealed multifocal right middle lobe and bilateral airspace opacities. Mucous plugging was noted. Sputum cultures from 06/22/2024 revealed Streptococcus pneumonia. Patient currently on prednisone therapy 40 mg daily. Her antibiotics were de- escalated to Rocephin and azithromycin. Allergies Allergy/AdvReac Type Severity Reaction Status Date / Time sumatriptan [From Imitrex] Allergy Severe stopped Verified 01/23/22 10:54 breathing as per px Home Medications Medication Instructions Recorded Confirmed Type albuterol sulfate 90 mcg/actuation 1 puff inhalation QID PRN Wheezing 04/22/20 06/22/24 History aerosol inhaler alendronate 70 mg tablet 70 mg PO WK 04/22/20 06/22/24 History butalbital 50 mg-acetaminophen 325 1 cap PO Q6H PRN Migraine Headache 04/22/20 06/22/24 History mg-caffeine 40 mg-codeine 30 mg cap calcium 600 mg (as 1 cap PO BID 04/22/20 06/22/24 History carbonate)-vitamin D3 5 mcg (200 unit) capsule (Calcium 600 + D(3)) carisoprodol 350 mg tablet 350 mg PO TID PRN Muscle Spasm 04/22/20 06/22/24 History cholecalciferol (vitamin D3) 25 25 mcg PO DAILY 04/22/20 06/22/24 History mcg (1,000 unit) tablet (Vitamin D3) multivit,zskqdfv-slmy-PH-lut-#179herbal 1 tab PO DAILY 04/22/20 06/22/24 History 13.5 mg-200 mcg-250 mcg tablet ([facility]) omeprazole 20 mg capsule,delayed 20 mg PO QAM 04/22/20 06/22/24 History release zolpidem 10 mg tablet 10 mg PO HS 04/22/20 06/22/24 History fluticasone furoate 100 1 ea inhalation DAILY #60 ea 01/12/22 06/22/24 Rx mcg-vilanterol 25 mcg/dose inhalation powder (Breo Ellipta) umeclidinium 62.5 mcg/actuation 1 inh inhalation QAM #30 ea 01/12/22 06/22/24 Rx blister powder for inhalation (Incruse Ellipta) aspirin 81 mg tablet,delayed 81 mg PO DAILY 06/01/22 06/22/24 History release atorvastatin 20 mg tablet 20 mg PO DAILY 06/01/22 06/22/24 History diclofenac sodium 1 % topical gel 2 g topical TID #100 grams 06/04/22 06/22/24 Rx hydrocodone 5 mg-acetaminophen 325 1 tab PO TID PRN Pain 06/22/24 06/22/24 History mg tablet mirtazapine 45 mg tablet 45 mg PO HS 06/22/24 06/22/24 History Patient History Medical History COPD (chronic obstructive pulmonary disease) Surgical History History of tonsillectomy and adenoidectomy Family History Father FH: glaucoma Social History Smoking Status: Current every day smoker Tobacco Type: Cigarettes Cigarettes Per Day: 20; Second Hand Exposure: No; Do You Dip or Chew Tobacco: No; Hx Alcohol Use: No Hx Substance Use: No Preferred Language: Somali 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 Ability: Effective 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 Cachectic appearing female in no apparent distress. Eyes: Pupils are equal round and reactive to light. Conjunctivae are normal. Anicteric sclera. Ears nose, mouth and throat: No perioral cyanosis. Neck: Trachea is midline. Visual inspection is normal. Respiratory: Barrel chested. Prolonged phase of exhalation. Mild expiratory wheeze. Mild tachypnea. Cardiovascular: Regular rate and rhythm. No murmurs. No edema. Gastrointestinal: Normal bowel sounds, soft, nontender and nondistended. No hepatosplenomegaly noted. Musculoskeletal: No cyanosis. Patient is able to move all extremities. Strength is 5 out of 5 in the upper and lower extremities. Skin: No rashes, warm dry and intact. Neurologic: No obvious focal neurological deficits seen. Psychiatric: Alert and oriented x3 with a euthymic affect. Results & Data Results & Data Vital Signs (Past 12 Hours) Vital Signs Temp Pulse Pulse Resp BP BP Pulse Ox 06/24/24 13:53 89 17 84 L 06/24/24 11:52 36.8 C 90 16 114/52 L 92 06/24/24 08:00 06/24/24 07:53 36.7 C 97 H 20 116/57 L 98 06/24/24 07:04 94 H 18 98 06/24/24 07:00 93 H O2 Del Method O2 Flow Rate 06/24/24 13:53 Room Air 06/24/24 11:52 Nasal Cannula 2 06/24/24 08:00 Nasal Cannula 3 06/24/24 07:53 Nasal Cannula 3 06/24/24 07:04 Nasal Cannula 3 06/24/24 07:00 PG Care Time/CCT Total # of Minutes Spent Total Time Spent with Patient: Total time spent is greater than 50% in coordination of care (as documented) at patient's floor/unit and/or counseling patient: Coding Level of Care Code 36791 INT INP/OBS CARE 2MIN Diagnoses Acute viral bronchiolitis J21.8; B97.89 COPD (chronic obstructive pulmonary disease) J44.9 COPD type: unspecified COPD Abnormal CT scan of lung R91.8 Tobacco abuse counseling Z71.6
[2024-06-24] MEDS: cefTRIAXone SODIUM 1,000 MG/50 ML BAG IV SCH (17:34)
[2024-06-24] MEDS: FORMOTEROL 20 MCG/2 ML VIAL NEB SCH (20:02)
[2024-06-24] MEDS: BUDESONIDE 0.5 MG/2 ML VIAL (PULMICORT) NEB SCH (20:02)
[2024-06-24] MEDS: guaiFENesin 600 MG TABCR PO SCH (20:24)
--- NOTE | 2024-06-25 05:44 | Electrocardiogram Report ---
Test Reason : Blood Pressure : */* mmHG Vent. Rate : 108 BPM Atrial Rate : 108 BPM P-R Int : 100 ms QRS Dur : 90 ms QT Int : 320 ms P-R-T Axes : 86 71 -4 degrees QTcB Int : 428 ms Sinus tachycardia with short TX with occasional Premature ventricular complexes Premature atrial complexes Nonspecific T wave abnormality Abnormal ECG When compared with ECG of 02-Jun-2022 05:43, Premature ventricular complexes are now Present Vent. rate has increased by 38 bpm Premature atrial complexes are now Present Confirmed by Shyam Rogers ([id number]) on 06/25/2024 5:43:55 AM Referred By: Confirmed By: Shyam Rogers
[2024-06-25 06:52] LABS: Hemoglobin 10.5 g/dl (12.0-16.0); Mean Corpuscular Hemoglobin 31.3 pg (25.0-34.0); Mean Corpuscular Hgb Conc 32.8 g/dL (32.0-36.0); Mean Corpuscular Volume 95.2 fL (80.0-100.0); Platelet Count 464 K/uL (130-400); RDW Coefficient of Variation 12.7 % (11.5-14.5); RDW Standard Deviation 44.5 fL (36.4-46.3); Red Blood Count 3.36 M/uL (4.20-5.40); White Blood Count 9.31 K/ul (4.8-10.8)
[2024-06-25 07:00] LABS: Potassium 4.1 mmol/L (3.5-5.1)
[2024-06-25 07:01] LABS: BUN Creatinine Ratio 25.5 (10-20); Creatinine Clr Calc Pharmacy 60.2 ml/min; Magnesium 1.8 mg/dl (1.7-2.4); Phosphorus 2.9 mg/dl (2.5-4.9)
--- NOTE | 2024-06-25 10:19 | Hospitalist Progress Note ---
Date of Service June 25, 2024 Assessment & Plan (1) Pneumonia: Plan Sepsis Multifocal pneumonia Enterovirus/Rhinovirus Infection COPD exacerbation Pt with leukocytosis, tachypnea, tachycardia on arrival Chest XR and chest CTA with suggestion of pneumonia. Biofire noting enterovirus/rhinovirus infection VBG pH of 7.45, pCO2 54 Procalcitonin 0.17 Sputum culture - strep pneumo Blood cultures negative so far Continue IV ceftriaxone and azithromycin today Pulm eval and recs appreciated Wean oxygen to keep pulse ox >88% Continue steroid and nebs Counseled again regarding smoking cessation Hypokalemia Hypophosphatemia K and phos normal today Failure to thrive Malnutrition Nutrition recs noted Other chronic medical conditions: CAD, COPD, osteoporosis, GERD---- continue with home meds Diet: HH DVT prophylaxis: Heparin subcu I spent a total of 50 minutes coordinating, documenting and providing care for this patient excluding time spent in performance of separately billed services Admission and Anticipated Discharge Date Admission Date: June 22, 2024 Subjective Patient seen and examined Reports cough and SOB mildly improved today Denied chest pain Denied other complaints on ROS Physical Exam Constitutional: + well hydrated and + cachectic; no acut e distress Eyes: PERRL, conjunctivae normal, anicteric sclerae ENMT: external ear and nose normal, oropharynx normal Respiratory: On nasal cannula, diminished breath sounds Cardiovascular: Rate/Rhythm: regular rate and regular rhythm Gastrointestinal (Abdomen): normal bowel sounds, soft, nontender, no hepatosplenomegaly Musculoskeletal: no cyanosis or clubbing, extremities motor strength 5/5 Neurologic: PERRL, EOMI, accommodation nl, no face palsy, no dysarthria Psychiatric: A+Ox3, euthymic affect Results & Data Results & Data Vital Signs (Past 12 Hours) Vital Signs Temp Pulse Pulse Resp BP BP Pulse Ox 06/25/24 07:58 36.5 C 88 20 132/70 93 06/25/24 07:36 96 H 18 96 06/25/24 07:26 06/25/24 04:21 36.6 C 94 H 18 131/73 89 L 06/25/24 01:27 105 H 06/25/24 00:06 06/24/24 23:19 36.7 C 105 H 20 129/75 90 O2 Del Method O2 Flow Rate 06/25/24 07:58 Nasal Cannula 2 06/25/24 07:36 Nasal Cannula 2 06/25/24 07:26 Nasal Cannula 06/25/24 04:21 Nasal Cannula 2 06/25/24 01:27 06/25/24 00:06 Nasal Cannula 2 06/24/24 23:19 Nasal Cannula 2 Laboratory Results Abnormal lab results 06/25/24 Range/Units 06:20 RBC 3.36 L (4.20-5.40) M/uL Hgb 10.5 L (12.0-16.0) g/dl Hct 32.0 L (37.0-47.0) % Plt Count 464 H (130-400) K/uL MPV 9.0 L (9.4-12.4) fL Carbon Dioxide 34 H (21-32) mmol/L Creatinine 0.51 L (0.6-1.2) mg/dl BUN/Creatinine Ratio 25.5 H (10-20) Glucose 108 H (70-99(Fasting)) mg/dl (1) Pneumonia Laterality: unspecified laterality Lung location: unspecified part of lung Pneumonia type: due to unspecified organism Qualified Code(s): J18.9 - Pneumonia, unspecified organism
[2024-06-25] MEDS: HYDROCODONE/ACETAMOPHEN 5/325MG TAB PO PRN (19:32)
[2024-06-26 06:28] LABS: Hematocrit (blood only) 36.9 % (37.0-47.0); Hemoglobin 11.9 g/dl (12.0-16.0); Mean Corpuscular Hemoglobin 30.9 pg (25.0-34.0); Mean Corpuscular Hgb Conc 32.2 g/dL (32.0-36.0); Mean Corpuscular Volume 95.8 fL (80.0-100.0); Mean Platelet Volume 9.1 fL (9.4-12.4); Platelet Count 508 K/uL (130-400); RDW Coefficient of Variation 12.7 % (11.5-14.5); RDW Standard Deviation 45.1 fL (36.4-46.3); Red Blood Count 3.85 M/uL (4.20-5.40); White Blood Count 7.93 K/ul (4.8-10.8)
[2024-06-26 07:04] LABS: BUN Creatinine Ratio 21.5 (10-20); Calcium 9.4 mg/dl (8.6-10.3); Creatinine Clr Calc Pharmacy 47.5 ml/min; Magnesium 1.9 mg/dl (1.7-2.4); Phosphorus 3.4 mg/dl (2.5-4.9); Potassium 4.3 mmol/L (3.5-5.1)
--- NOTE | 2024-06-26 11:44 | Discharge Summary ---
Date of Service June 26, 2024 Admission HPI Per Admitting Provider 74-year-old lady with PMH of group C COPD, HLD, right renal artery stenosis, celiac artery stenosis, superior mesenteric artery stenosis, GERD, Warthin's tumor, fibromyalgia, age-related osteoporosis, tobacco use disorder presented to the ED with complaint of shortness of breath for several months, progressively getting worse since last couple of weeks. She also reports cough with greenish sputum for about 1 week duration, denies fever/sore throat/chest pain. She reports poor appetite and patient reports not moving around much, she reports progressively getting weaker. Patient denies belly pain or acute changes in her bowel or bladder habit. Patient admits to smoking 1 packs a day, has been smoking for more than 50 years, denies alcohol or recreational drug use. Medications reviewed with the patient and her daughters at bedside. Plan of care discussed with them in detail, they voiced understanding. DNR/DNI as per my discussion with the patient. Admission Exam Per Admitting Provider GENERAL: Alert and oriented x3. NAD, on 3L NC O2. appears old/frail/weak. HEENT: No pallor, no icterus. Pupils equal, round and reactive to light. Oral mucosa moist. NECK: No JVD, no neck masses. HEART: S1 and S2 heard. Regular rate and rhythm. HR in 90s. No murmur, no gallop. RESPIRATORY SYSTEM: Normal AP diameter. No accessory muscle use. No wheezing, no crackles. decreased breath sounds, occ b/l rhonchi. ABDOMEN: Soft, bowel sounds present, nontender, no distention. CENTRAL NERVOUS SYSTEM: No facial droop. Speech is clear. Obeys simple commands. Moves extremities. EXTREMITIES: No edema, no erythema seen. Principal Diagnosis Acute respiratory failure with hypoxia Pneumonia Rhinovirus infection COPD exacerbation Discharge Exam Constitutional + well hydrated and + cachectic; no acute distress Eyes PERRL, conjunctivae normal, anicteric sclerae ENMT external ear and nose normal, oropharynx normal Respiratory On room air, diminished breath sounds Cardiovascular Rate/Rhythm: regular rate and regular rhythm Gastrointestinal (Abdomen) normal bowel sounds, soft, nontender, no hepatosplenomegaly Musculoskeletal no cyanosis or clubbing, extremities motor strength 5/5 Neurologic PERRL, EOMI, accommodation nl, no face palsy, no dysarthria Psychiatric A+Ox3, euthymic affect Discharge Data Allergies Allergy/AdvReac Type Severity Reaction Status Date / Time sumatriptan [From Imitrex] Allergy Severe stopped Verified 01/23/22 10:54 breathing as per px Consultations 06/22/24 17:27 ED Decision to Admit Stat 06/24/24 11:09 Consult Pulmonology Routine Ordered Studies 06/22/24 16:23 CT angio chest PE protocol Stat 1. No pulmonary emboli identified. 2. Multifocal right middle lobe and bilateral lobe airspace opacities suggestive of pneumonia. Associated mucous plugging. A follow-up chest CT in 2 months to ensure resolution is recommended. 3. Mildly enlarged subcarinal lymph node. This is likely reactive but should be assessed on follow-up CT to ensure resolution. 4. Severe emphysema. Hospital Course (1) Pneumonia: Plan Sepsis Acute respiratory failure with hypoxia Multifocal pneumonia Enterovirus/Rhinovirus Infection COPD exacerbation Had leukocytosis, tachypnea, tachycardia on arrival Chest XR and chest CTA showed pneumonia. Biofire noted enterovirus/rhinovirus infection VBG pH of 7.45, pCO2 54 Procalcitonin 0.17 Sputum culture - strep pneumo Blood cultures negative so far Was treated with IV antibiotics Was evaluated by Pulmonology inpatient Paitent needs to follow up with Pulm outpatient Counseled on need to quit smoking and adherent with meds Oxygen was weaned off but 2 step showed patient still needed 2L with activity Patient discharged on 2 more days of antibiotic (cefpodoxime, azithromycin) and prednisone to complete treatment Hypokalemia Hypophosphatemia These were repleted and normalized Failure to thrive Malnutrition Nutrition evaluated Education provided. Continue nutritional supplements Called daughter Shira and updated her Total Time Total Time Spent Total Time Spent (In Minutes): 45 Total Time Includes: Examination of the Patient, Discharge Planning, Medication Reconciliation and Other Discharge Plan Discharge Items Patient Disposition: Home - Self-Care Reason For Visit: Shortness of breath Discharge Diagnosis: Acute respiratory failure with hypoxia Pneumonia Rhinovirus infection COPD exacerbation Activity: Resume your previous activity Non-emergency contact: Primary Care Provider and [employer] Pack[employer] Tester Call non-emergency contact if: you have any medication questions Follow-up/Referrals: Rm Berrios MD [Physician] - (The Pulmonology office will contact you for a follow up appointment.) Nick Stearns DO [Primary Care Provider] - (Date & Time 07/02/2024 11:00 AM Provider [place] Pharmacist [address] [facility] [address] [facility] Date & Time 07/02/2024 11:20 AM Provider Nick Stearns DO [facility] [address] [facility] ) Diet: Regular Addtl Attending Provider Instructions: Mrs Maldonado You were hospitalized and managed for the above listed diagnoses. You are being discharged home 2 more days of antibiotics and steroid. You are being discharged on oxygen at 2L with activity. Please quit smoking as we discussed. Please use your inhalers as prescribed. Please ensure follow up with Semicon[employer] Pack[employer] Tester and your Primary Doctor. It was a pleasure taking care of you. Pending Studies at Discharge: No Stand-Alone Forms: My [facility], Smoking Cessation Medications and DC Order Prescriptions: New azithromycin 250 mg Tablet 500 mg PO QAM 2 Days Qty: 4 0RF prednisone 20 mg Tablet 20 mg PO DAILY 2 Days Qty: 2 0RF cefpodoxime 200 mg tablet 200 mg PO BID 2 Days Qty: 4 0RF Rx Instructions: must administer with a meal/food Continued alendronate 70 mg tablet 70 mg PO WK carisoprodol 350 mg tablet 350 mg PO TID PRN (Reason: Muscle Spasm) omeprazole 20 mg capsule,delayed release(DR/EC) 20 mg PO QAM zolpidem 10 mg tablet 10 mg PO HS xdurzvjhdv-ffkjewxezr-ksn-cod 90-135-37-30 mg capsule 1 cap PO Q6H PRN (Reason: Migraine Headache) Calcium 600 + D(3) 600 mg calcium- 200 unit Capsule 1 cap PO BID cholecalciferol (vitamin D3) [Vitamin D3] 25 mcg (1,000 unit) Tablet 25 mcg PO DAILY [facility] 13.5-200-250 mg-mcg-mcg Tablet 1 tab PO DAILY albuterol sulfate 90 mcg/actuation Hfa Aerosol Inhaler 1 puff INHALATION QID PRN (Reason: Wheezing) atorvastatin 20 mg tablet 20 mg PO DAILY aspirin 81 mg Tablet,Delayed Release (Dr/Ec) 81 mg PO DAILY diclofenac sodium 1 % gel 2 g topical TID Qty: 100 0RF Rx Instructions: Over left posterior ribs hydrocodone-acetaminophen 5-325 mg tablet 1 tab PO TID PRN (Reason: Pain) mirtazapine 45 mg tablet 45 mg PO HS fluticasone furoate-vilanterol [Breo Ellipta] 100-25 mcg/dose Blister With Device 1 ea inhalation DAILY Qty: 60 0RF Rx Instructions: Has not been taking Incruse Ellipta 62.5 mcg/actuation Blister With Device 1 inh inhalation QAM Qty: 30 0RF Rx Instructions: Has not been taking Discharge Orders: Discharge Order (Routine); Ordered 06/26/24 Ordered By: Rose Zelaya/Other Patient Handouts: Prednisone Oral Tablet, Cefpodoxime Oral Tablet, Azithromycin Oral Tablet Admission Data Admit Date/Time: 06/22/24 18:55 Attending Provider: Rose Ram I. Admit Provider: Mariia Harrison Primary Care Provider: Nick Stearns Other Providers: Jimena Aleman; Rm Berrios Other Interventions: Discharge Summary Assessment (RN) Last Done: 06/26/24 11:49
[2024-06-26 11:49] VITALS: TEMP 97.7
[2024-06-26 11:50] VITALS: BP 133/77
[2024-06-26 12:32] VITALS: PULSE 92; RESP 20; O2SAT 93
--- NOTE | 2024-06-29 10:40 | Coding Query ---
CODING QUERY To promote full compliance with coding requirements relating to patient care, provider participation is requested in all cases of crime scene evidence technician uncertainty. Please assist us with the question(s) below: Coding Question(s): Pt adm with Sepsis,pneumonia & COPD exacerbation. Positive Bioire for Entero/rhinovirus & positive sputum for strep pneumo. Please document, if known or suspected, the type(s) of pneumonia that were treated during this inpatient stay. Thanks for your help! Estuardo Kinney [facility] Physician's Response(s): Possible superimposed bacterial pneumonia Principal Diagnosis: "that condition established after study, to be chiefly responsible for occasioning the admission of the patient to the hospital for care." Co-Existing Principal Diagnosis: "when two or more diagnoses equally meet the criteria for principal diagnosis as determined by the circumstances of admission, diagnostic work up, and/or therapy provided, and the Alphabetic Index, Tabular List, or another coding guideline does not provide sequencing direction, any one of the diagnoses may be sequenced first." "When the physician has documented what appears to be a current diagnosis in the body of the record, but has not included the diagnosis in the final diagnostic statement, the physician should be asked whether the diagnosis should be added." (Source Coding Clinic 2 QTR90. p3-4) ANGELA
== END 2024-06-26 13:15 | disposition home or self-care (01) | DRG 871 ==
LOC: ED 14:12 → SUATTDRO 18:55 → 2W 18:55